=== PATIENT | female | born 1960 ===

== ENCOUNTER 2022-09-18 12:47 | Inpatient (IN) | payer OTHER, SELFPAY ==
--- OUTSIDE RECORDS SUMMARY | 2022-09-18 13:02 | XMS REPORT | Continuity of Care Document ---
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 2022- No [id number] 5mg Take 1 Univ ers mg tablet 4-04 05-05 tablet by ity of 00:00: 04:59 mouth in [place] 00 :00 the Medical morning Branch and 1 tablet in the evening. Do all this for 30 days. Indication s: atrial fibrillati on famotidine 2022-0 2022- No [id number] 20mg Take 1 [facility] 20 mg 4- 05-05 tablet by ity of tablet 00:00: 04:59 mouth in [place] 00 :00 the [facility] for 30 days. furosemide 2022-0 2022- No [id number] 80mg Take 1 [facility] 80 mg 4-04 05-05 tablet by ity of tablet 00:00: 04:59 mouth [place] 00 :00 every Medical morning Branch and evening for 30 days. KCL 20 mEq 2022-0 2022- No [id number] 20meq Take 1 [facility] tablet 4- 05-05 tablet by ity of 00:00: 04:59 mouth in [place] 00 :00 the [facility] for 30 days. apixaban 5 2022-2022- No [id number] 5mg Take 1 Univ ers mg tablet - 05-05 tablet by ity of 00:00: 04:59 mouth in [place] 00 :00 the [facility] and 1 tablet in the evening. Do all this for 30 days. Indication s: atrial fibrillati on famotidine 2022-2022- No [id number] 20mg Take 1 [facility] 20 mg 4- 05-05 tablet by ity of tablet 00:00: 04:59 mouth in [place] 00 :00 the [facility] for 30 days. furosemide 2022-0 2022- No [id number] 80mg Take 1 [facility] 80 mg 4- 05-05 tablet by ity of tablet 00:00: 04:59 mouth [place] 00 :00 every Medical morning Branch and evening for 30 days. KCL 20 mEq 2022-2022- No [id number] 20meq Take 1 [facility] tablet - 05-05 tablet by ity of 00:00: 04:59 mouth in [place] 00 :00 the [facility] for 30 days. spironolact 0 Yes 25mg 25 mg, Univ ers one 4-03 Oral, ity of (ALDACTONE) 14:00: DAILY, [place] tablet 25 00 First dose Medi veronica mg on Tue Branch 05/31/22 at 0900, Until Discontinu ed, Routine KCL 2022-2022- No 40meq 40 mEq, Univers (KLOR-CON 05-31 04-03 Oral, ity of M20) tablet 11:45: 14:08 ONCE, 1 [place] 40 mEq 00 :00 dose, On Medical 05/31/22 Branch at 0645, Routine metoprolol 2022-0 Yes 25mg 25 mg, Unive rs tartrate -03 Oral, BID, ity o f (LOPRESSOR) 01:00: First dose [place] tablet 25 00 (after Medical mg last Branch modificati on) on 05/30/22 at 2000, Until Discontinu ed, Routine amiodarone 2022-0 Yes 200mg QD Take 200 Miranda [facility] (PACERONE) 4-02 mg by Health 100 mg 23:11: mouth tablet 33 daily. metolazone 2022-0 Yes 5mg QD Take 5 mg [facility] (ZAROXOLYN) 4-02 by mouth Heal th 5 mg tablet 23:11: daily Take 33 one by mouth daily 30 minutes before lasix dose . furosemide 2022-0 Yes 40mg QD Take 40 mg H arris (LASIX) 40 -02 by mouth Healt h mg tablet 23:11: daily. 33 metoprolol 2022-0 Yes 50mg Q.5D Take 50 mg H [facility] (LOPRESSOR) -02 by mouth 2 He alth 50 mg 23:11: times tablet 33 daily Metoprolol tart 50 mg tab leg . nitroGLYCER 2022-[address] 0.4 H arris IN 4-02 mg under Health (NITROSTAT) 23:11: tongue 0.4 mg 33 every 5 sublingual minutes as tablet needed for Chest pain (total of 3 doses in 15 minutes) Dissolve 1 tablet under the tongue every 5 minutes as needed, up to 3 times. If chest pain persists, call 911 . levETIRAcet 3-0 Yes 500mg QD Take 500 H arris am (KEPPRA) 4-02 mg by Health 500 mg 23:11: mouth tablet 33 daily. potassium 2023-0 Yes Q.5D Take by [place] chloride 20 4-02 mouth 2 Healt h mEq TbER 23:11: times 33 daily. metoprolol 3-0 2023- No 50mg 50 mg, Univ ers tartrate 05-30 04-02 Oral, ity of (LOPRESSOR) 14:00: 14:49 DAILY, Rishabh as tablet 50 00 :46 First dose Medi veronica mg (after Branch last modificati on) on 05/30/22 at 0900, Until Discontinu ed, Routine metoprolol 3-0 2023- No 25mg 25 mg, Univ ers tartrate 05-30 04-02 Oral, QPM ity o f (LOPRESSOR) 01:00: 14:49 AT 2000, [place] tablet 25 00 :46 First dose Medi veronica mg (after Branch last modificati on) on 05/29/22 at 2000, Until Discontinu ed, Routine ondansetron 2022-0 Yes 4mg 4 mg, Slow Univers (ZOFRAN 05-29 IV Push, ity of (PF)) 07:58: Q6HPRN, [place] injection 4 55 Nausea and Me dical mg Vomiting Branch (N/V), Starting on 05/29/22 at 0258
Do ses of ondansetro n 16 mg and above need to be administer ed via IV piggyback. For Dose >=24mg ECG monitoring is advisable.
pravastatin 2022-0 Yes 20mg 20 mg, Univ ers (PRAVACHOL) 05-29 Oral, QHS, it y of tablet 20 02:00: First dose [place] mg 00 on Tue Medical 05/28/22 at Branch 2100, Until Discontinu ed, Routine lisinopriL 2022-0 Yes 10mg 10 mg, Unive rs (PRINIVIL,Z 05-28 Oral, ity of ESTRIL) 14:00: DAILY, [place] tablet 10 00 First dose Medi veronica mg on Tue Branch 05/28/22 at 0900, Until Discontinu ed, Routine levETIRAcet 2022-0 Yes 500mg 500 mg, Un [place] am (KEPPRA) 05-28 Oral, ity of tablet 500 14:00: DAILY, [place] mg 00 First dose Medical on Tue Branch 05/28/22 at 0900, Until Discontinu ed, Routine diltiazem 2022-0 Yes 240mg 240 mg, Univ ers XR 3 Oral, QAM, ity of (DILT-XR) 14:00: First dose [place] capsule 240 00 on Fri Medica l mg 05/28/22 at Branch 0900, Until Discontinu ed calcium 2022-0 Yes 500mg 500 mg, Univer s carbonate 05-28 Oral, ity of (OSCAL-500) 14:00: DAILY, [place] tablet 500 00 First dose Med ical mg on Tue Branch 05/28/22 at 0900, Until Discontinu ed, Routine furosemide 2022-0 Yes 40mg 40 mg, IV Un edwin (LASIX) 05-28 Push, ity of injection 13:00: Q12H, [place] 40 mg 00 First dose Medical (after Branch last reorder) on Tue05/28/22 at 0800, Until Discontinu ed, SHAUN famotidine 2022-0 Yes 20mg 20 mg, Unive rs (PEPCID AC) 05-28 Oral, BID, it y of tablet 20 13:00: First dose [place] mg 00 on Tue Medical 05/28/22 at Branch 0800, Until Discontinu ed, Routine hydrocortis 0 Yes 25mg 25 mg, Univ ers one 05-28 Rectal, ity of (ANUSOL-HC) 13:00: BID, First [place] suppository 00 dose on Medic al 25 mg Tue [place] 05/28/22 at 0800, Until Discontinu ed, Routine dicyclomine 2022-0 Yes 20mg 20 mg, Univ ers (BENTYL) 05-28 Oral, QID, ity o f tablet 20 13:00: First dose [place] mg 00 on Tue Medical 05/28/22 at Branch 0800, Until Discontinu ed, Routine budesonide- 2022-0 Yes 2{puff} 2 Puff, Univers formoteroL 05-28 Inhalation ity of (SYMBICORT) 13:00: , BID, [place] 160-4.5 00 First dose Medica l mcg/actuati on Tue on inhaler 05/28/22 at 2 Puff 0800, Until Discontinu ed, Routine apixaban 2022-0 2022- No 10mg 10 mg, Univer s (ELIQUIS) 05-28 04-03 Oral, BID, ity of tablet 10 13:00: 13:33 First dose [place] mg 00 :19 on Tue Medical 05/28/22 at Branch 0800, Until Discontinu ed, Routine
Indicatio ns: Non-Valvul ar Atrial Fibrillati on metoprolol 2022- No 50mg 50 mg, Univ ers tartrate 05-28 04 Oral, BID, ity of (LOPRESSOR) 13:00: 21:44 First dose [place] tablet 50 00 :15 on Fri Medical mg 05/28/22 at Branch 0800, Until Discontinu ed, Routine nitroglycer Yes .4mg 0.4 mg, Uni vers in 05-28 Sublingual ity of (NITROSTAT) 02:35: , Q5MIN [place]ishab[place] as sublingual 05 PRN, Medical tablet 0.4 Starting Branc h mg on [facility] 05/27/22 at 2135, Until Discontinu ed, Routine, Chest pain HYDROcodone Yes 1{tbl} 1 tablet, Univers -acetaminop 05-28 Oral, ity of hen (NORCO) 02:34: Q6HPRN, [place]ab[place] as 10-325 mg 21 Starting Medica l tablet 1 on [facility] tablet 05/27/22 at 2134, Until Discontinu ed, Routine, Pain (scale 7-10) albuterol Yes 2{puff} 2 Puff, Un edwin (VENTOLIN) 05-28 Inhalation ity of inhaler 2 02:32: , Q6HPRN, [place] as Puff 16 Starting Medical on [facility] Branch 05/27/22 at 2132, Until Discontinu ed, Routine, Wheezing, Shortness of Breath, Bronchospa sm, Chest tightness magnesium 2022- No 2g 2 g, IV Univ ers sulfate in 05-27 0330 Piggyback, it y of water 2 22:30: 23:14 Administer Rishabh as gram/50 mL 00 :00 over 60 Medica l (4 %) Minutes, Branch infusion 2 ONCE, 1 g dose, On [facility] 05/27/22 at 1730, Routine acetaminoph Yes 650mg 650 mg, Un edwin en 05-27 Oral, ity of (TYLENOL) 22:25: Q6HPRN, [place] tablet 650 16 Starting Medic al mg on [facility] Branch 05/27/22 at 1725, Until Discontinu ed, Routine, Pain (scale 1-3) potassium Yes 20meq Take 1 Unive rs chloride 20 3-30 tablet by ity of mEq tablet 21:36: mouth in [facility] as 09 the Medical morning. Branch HYDROcodone Yes 1{tbl} Take 1 Un edwin -acetaminop 3-30 tablet by ity of hen 10-325 21:36: mouth [place] mg tablet 09 every 6 Medical (six) Branch hours as needed. apixaban 5 Yes 10mg Take 2 Unive rs mg tablet 3-30 tablets by ity of 21:36: mouth in [place] 09 the Medical morning Branch and 2 tablets in the evening. iopamidol 2022- No [id number] 80mL 80 mL, Univers (ISOVUE 30 30 Intravenou ity o f 370-500 mL) 21:15: 20:15 s, ONCE, 1 [place] injection 00 :00 dose, On Medica l 80 mL [place] Branch 05/27/22 at 1615, Routine furosemide 2022- No 40mg 40 mg, IV U nivers (LASIX) 05-27 Push, ity of injection 20:30: 20:41 ONCE, 1 [place] 40 mg 00 :00 dose, On Medical [facility] Branch 05/27/22 at 1530, SHAUN phenylephri Yes [id number] 1{suppo Insert 1 Univers ne 0.25 % 3-21 sitory} Suppositor i ty of suppository 00:00: y [place] 00 rectum in [facility] the [place] morning and 1 Suppositor y in the evening. phenylephri Yes [id number] 1{suppo Insert 1 Univers ne 0.25 % 3-21 sitory} Suppositor i ty of suppository 00:00: y [place] 00 rectum in [facility] morning and 1 Suppositor y in the evening. phenylephri Yes [id number] 1{suppo Insert 1 Univers ne 0.25 % 3-21 sitory} Suppositor i ty of suppository 00:00: y [place] 00 rectum in [facility] the [place] morning and 1 Suppositor y in the evening. phenylephri Yes [id number] 1{suppo Insert 1 Univers ne 0.25 % 3-21 sitory} Suppositor i ty of suppository 00:00: y into [place] 00 rectum in [facility] morning and 1 Suppositor y in the evening. phenylephri Yes [id number] 1{suppo Insert 1 Univers ne 0.25 % 3-21 sitory} Suppositor i ty of suppository 00:00: y [place] 00 rectum in [facility] morning and 1 Suppositor y in the evening. phenylephri Yes [id number] 1{suppo Insert 1 Univers ne 0.25 % 3-21 sitory} Suppositor i ty of suppository 00:00: y into [place] 00 rectum in [facility] morning and 1 Suppositor y in the evening. phenylephri Yes [id number] 1{suppo Insert 1 Univers ne 0.25 % 3-21 sitory} Suppositor i ty of suppository 00:00: y into [place] 00 rectum in [facility] morning and 1 Suppositor y in the evening. phenylephri Yes [id number] 1{suppo Insert 1 Univers ne 0.25 % 3-21 sitory} Suppositor i ty of suppository 00:00: y into [place] 00 rectum in [facility] morning and 1 Suppositor y in the evening. phenylephri Yes [id number] 1{suppo Insert 1 Univers ne 0.25 % 3-21 sitory} Suppositor i ty of suppository 00:00: y into [place] 00 rectum in [facility] morning and 1 Suppositor y in the evening. phenylephri Yes [id number] 1{suppo Insert 1 Univers ne 0.25 % 3-21 sitory} Suppositor i ty of suppository 00:00: y into [place] 00 rectum in [facility] morning and 1 Suppositor y in the evening. phenylephri Yes [id number] 1{suppo Insert 1 Univers ne 0.25 % 3-21 sitory} Suppositor i ty of suppository 00:00: y into [place] 00 rectum in [facility] morning and 1 Suppositor y in the evening. hydrocortis Yes [id number] 25mg Insert 1 [facility] one 25 mg 3-17 Suppositor ity of suppository 00:00: y into [place] 00 rectum in Medical the [place] morning and 1 Suppositor y in the evening. ondansetron 2023-0 Yes [id number] 4mg Take 1 [facility] 4 mg 3-17 tablet by ity of disintegrat 00:00: mouth [place] ing tablet 00 every 8 Medica l (eight) Branch hours as needed for Nausea and Vomiting (N/V). dicyclomine 2023-0 Yes [id number] 20mg Take 1 [facility] 20 mg 3-17 tablet by ity of tablet 00:00: mouth 4 [place] 00 (four) Medical times [place] daily. hydrocortis 2023-0 Yes [id number] 25mg Insert 1 [facility] one 25 mg 3-17 Suppositor ity of suppository 00:00: y into [place] 00 rectum in [facility] the [place] morning and 1 Suppositor y in the evening. ondansetron 2023-0 Yes [id number] 4mg Take 1 [facility] 4 mg 3-17 tablet by ity of disintegrat 00:00: mouth [place] ing tablet 00 every 8 Medica l (eight) Branch hours as needed for Nausea and Vomiting (N/V). dicyclomine 2023-0 Yes [id number] 20mg Take 1 [facility] 20 mg 3-17 tablet by ity of tablet 00:00: mouth 4 [place] (four) [facility] times [place] daily. hydrocortis 2023-0 Yes [id number] 25mg Insert 1 [facility] one 25 mg 3-17 Suppositor ity of suppository 00:00: y into [place] 00 rectum in [facility] the [place] morning and 1 Suppositor y in the evening. ondansetron 2023-0 Yes [id number] 4mg Take 1 [facility] 4 mg 3-17 tablet by ity of disintegrat 00:00: mouth [place] ing tablet 00 every 8 Medica l (eight) Branch hours as needed for Nausea and Vomiting (N/V). dicyclomine 2023-0 Yes [id number] 20mg Take 1 [facility] 20 mg 3-17 tablet by ity of tablet 00:00: mouth 4 [place] 00 (four) Medical times [place] daily. hydrocortis 2023-0 Yes [id number] 25mg Insert 1 [facility] one 25 mg 3-17 Suppositor ity of suppository 00:00: y into [place] 00 rectum in Medical the [place] morning and 1 Suppositor y in the evening. ondansetron 2023-0 Yes [id number] 4mg Take 1 [facility] 4 mg 3-17 tablet by ity of disintegrat 00:00: mouth [place] ing tablet 00 every 8 Medica l (eight) Branch hours as needed for Nausea and Vomiting (N/V). dicyclomine 2023-0 Yes [id number] 20mg Take 1 [facility] 20 mg 3-17 tablet by ity of tablet 00:00: mouth 4 [place] 00 (four) Medical times [place] daily. hydrocortis 2023-0 Yes [id number] 25mg Insert 1 [facility] one 25 mg 3-17 Suppositor ity of suppository 00:00: y into [place] 00 rectum in [facility] morning and 1 Suppositor y in the evening. ondansetron 2023-0 Yes [id number] 4mg Take 1 [facility] 4 mg 3-17 tablet by ity of disintegrat 00:00: mouth [place] ing tablet 00 every 8 Medica l (eight) Branch hours as needed for Nausea and Vomiting (N/V). dicyclomine 2023-0 Yes [id number] 20mg Take 1 [facility] 20 mg 3-17 tablet by ity of tablet 00:00: mouth 4 (four) [facility] times [place] daily. hydrocortis 2023-0 Yes [id number] 25mg Insert 1 [facility] one 25 mg 3-17 Suppositor ity of suppository 00:00: y into [place] 00 rectum in [facility] morning and 1 Suppositor y in the evening. ondansetron 2023-0 Yes [id number] 4mg Take 1 [facility] 4 mg 3-17 tablet by ity of disintegrat 00:00: mouth [place] ing tablet 00 every 8 Medica l (eight) Branch hours as needed for Nausea and Vomiting (N/V). dicyclomine 2023-0 Yes [id number] 20mg Take 1 [facility] 20 mg 3-17 tablet by ity of tablet 00:00: mouth 4 [place] 00 (four) Medical times [place] daily. hydrocortis 2023-0 Yes [id number] 25mg Insert 1 [facility] one 25 mg 3-17 Suppositor ity of suppository 00:00: y into [place] 00 rectum in [facility] morning and 1 Suppositor y in the evening. ondansetron 3-0 Yes [id number] 4mg Take 1 [facility] 4 mg 3-17 tablet by ity of disintegrat 00:00: mouth [place] ing tablet 00 every 8 Medica l (eight) Branch hours as needed for Nausea and Vomiting (N/V). hydrocortis 2022-0 Yes [id number] 25mg Insert 1 [facility] one 25 mg 3-17 Suppositor ity of suppository 00:00: y into [place] 00 rectum in [facility] morning and 1 Suppositor y in the evening. ondansetron 3-0 Yes [id number] 4mg Take 1 [facility] 4 mg 3-17 tablet by ity of disintegrat 00:00: mouth [place] ing tablet 00 every 8 Medica l (eight) Branch hours as needed for Nausea and Vomiting (N/V). hydrocortis 2022-0 Yes [id number] 25mg Insert 1 [facility] one 25 mg 3-17 Suppositor ity of suppository 00:00: y into [place] 00 rectum in [facility] morning and 1 Suppositor y in the evening. ondansetron 2022-0 Yes [id number] 4mg Take 1 [facility] 4 mg 3-17 tablet by ity of disintegrat 00:00: mouth [place] ing tablet 00 every 8 Medica l (eight) Branch hours as needed for Nausea and Vomiting (N/V). hydrocortis 2022-0 Yes [id number] 25mg Insert 1 [facility] one 25 mg 3-17 Suppositor ity of suppository 00:00: y into [place] rectum in [facility] morning and 1 Suppositor y in the evening. ondansetron 3-0 Yes [id number] 4mg Take 1 [facility] 4 mg 3-17 tablet by ity of disintegrat 00:00: mouth [place] ing tablet 00 every 8 Medica l (eight) Branch hours as needed for Nausea and Vomiting (N/V). hydrocortis 3-0 Yes [id number] 25mg Insert 1 [facility] one 25 mg 3-17 Suppositor ity of suppository 00:00: y into [place] rectum in [facility] morning and 1 Suppositor y in the evening. ondansetron 3-0 Yes [id number] 4mg Take 1 [facility] 4 mg 3-17 tablet by ity of disintegrat 00:00: mouth [place] ing tablet 00 every 8 Medica l (eight) Branch hours as needed for Nausea and Vomiting (N/V). hydrocortis 2022-0 Yes [id number] 25mg Insert 1 [facility] one 25 mg 3-17 Suppositor ity of suppository 00:00: y into [place] 00 rectum in Medical the Branch morning and 1 Suppositor y in the evening. ondansetron 2022-0 Yes [id number] 4mg Take 1 [facility] 4 mg 3-17 tablet by ity of disintegrat 00:00: mouth [place] ing tablet 00 every 8 Medica l (eight) Branch hours as needed for Nausea and Vomiting (N/V). hydrocortis 2022-0 Yes [id number] 25mg Insert 1 [facility] one 25 mg 3-17 Suppositor ity of suppository 00:00: y into [place] 00 rectum in [facility] the [place] morning and 1 Suppositor y in the evening. ondansetron 2022-0 Yes [id number] 4mg Take 1 [facility] 4 mg 3-17 tablet by ity of disintegrat 00:00: mouth [place] ing tablet 00 every 8 Medica l (eight) Branch hours as needed for Nausea and Vomiting (N/V). dicyclomine 2022-2022- No [id number] 20mg Take 1 [facility] 20 mg 3-17 04-12 tablet by ity of tablet 00:00: 00:00 mouth 4 [place] 00 :00 (four) Medical times Branch daily. dicyclomine 2022-2022- No [id number] 20mg Take 1 [facility] 20 mg 3-17 04-12 tablet by ity of tablet 00:00: 00:00 mouth 4 [place] 00 :00 (four) Medical times Branch daily. magnesium 2022- No 2g 2 g, IV Univ ers sulfate in 03-11 Piggyback, it y of water 2 21:15: 21:30 Administer Rishabh as gram/50 mL 00 :00 over 60 Medica l (4 %) Minutes, Branch infusion 2 ONCE, 1 g dose, On [place] 03/11/22 at 1515, SHAUN levETIRAcet 2022-2022- No 1000mg 1,000 mg, Univers am (KEPPRA) 03-11 IV ity of in NACL 19:45: 19:51 Piggyback, Rishabh as (ISO-OS) 00 :00 ONCE, 1 Medical 1,000 dose, On Branch mg/100 mL [place] RTU 03/11/22 at 1345, Administer over 15 Minutes, 100 mL predniSONE 2021-02- No [id number] 50mg Take 1 Univers 50 mg 2-24 12-29 tablet by ity of tablet 00:00: 05:59 mouth in [place] 00 :00 the Medical morning Branch for 4 days. predniSONE 2021-02- No [id number] 50mg Take 1 [facility] 50 mg 2-24 12-29 tablet by ity of tablet 00:00: 05:59 mouth in [place] 00 :00 the Medical morning Branch for 4 days. potassium 2021-02 Yes 1{tbl} Take 1 Univ ers chloride 20 2-23 tablet by ity of mEq tablet 16:04: mouth 05 daily. Medical Branch HYDROcodone 2021-02 Yes 1{tbl} Take 1 Un ed[place] -acetaminop 2-23 tablet by ity of hen 10-325 16:04: mouth [place] mg tablet 05 every 6 Medical (six) Branch hours as needed. apixaban 5 2021-02 Yes 10mg Take 10 mg U nivers mg tablet 2-23 by mouth ity of 16:04: in the morning Medical and 10 mg Branch in the evening. potassium 2021-02 Yes 1{tbl} Take 1 Univ ers chloride 20 2-23 tablet by ity of mEq tablet 16:04: mouth [place] 05 daily. Medical Branch HYDROcodone 2021-02 Yes 1{tbl} Take 1 Un edwin -acetaminop 2-23 tablet by ity of hen 10-325 16:04: mouth [place] mg tablet 05 every 6 Medical (six) Branch hours as needed. apixaban 5 2021-02 Yes 10mg Take 10 mg U nivers mg tablet 2-23 by mouth ity of 16:04: in the morning Medical and 10 mg Branch in the evening. potassium 2021-02 Yes 1{tbl} Take 1 Univ ers chloride 20 2-23 tablet by ity of mEq tablet 16:04: mouth [place] 05 daily. Medical Branch HYDROcodone 2021-02 Yes 1{tbl} Take 1 Un [place] -acetaminop 2-23 tablet by ity of hen 10-325 16:04: mouth [place] mg tablet 05 every 6 Medical (six) Branch hours as needed. apixaban 5 2021-02 Yes 10mg Take 10 mg U nivers mg tablet 2-23 by mouth ity of 16:04: in the [place] 05 morning Medical and 10 mg Branch in the evening. potassium 2021-02 Yes 1{tbl} Take 1 Univ ers chloride 20 2-23 tablet by ity of mEq tablet 16:04: mouth [place] 05 daily. Medical Branch HYDROcodone 2021-02 Yes 1{tbl} Take 1 Un [place] -acetaminop 2-23 tablet by ity of hen 10-325 16:04: mouth [place] mg tablet 05 every 6 Medical (six) Branch hours as needed. apixaban 5 2021-02 Yes 10mg Take 10 mg U nivers mg tablet 2-23 by mouth ity of 16:04: in the 05 morning Medical and 10 mg Branch in the evening. potassium 2021-02 Yes 1{tbl} Take 1 Univ ers chloride 20 2-23 tablet by ity of mEq tablet 16:04: mouth [place] 05 daily. Medical Branch HYDROcodone 2021-02 Yes 1{tbl} Take 1 Un ed[place] -acetaminop 2-23 tablet by ity of hen 10-325 16:04: mouth [place] mg tablet 05 every 6 Medical (six) Branch hours as needed. apixaban 5 2021-02 Yes 10mg Take 10 mg U nivers mg tablet 2-23 by mouth ity of 16:04: in the 05 morning Medical and 10 mg Branch in the evening. potassium 2021-02 Yes 1{tbl} Take 1 Univ ers chloride 20 2-23 tablet by ity of mEq tablet 16:04: mouth [place] 05 daily. Medical Branch HYDROcodone 2021-02 Yes 1{tbl} Take 1 Un [place] -acetaminop 2-23 tablet by ity of hen 10-325 16:04: mouth [place] mg tablet 05 every 6 Medical (six) Branch hours as needed. apixaban 5 2021-02 Yes 10mg Take 10 mg U nivers mg tablet 2-23 by mouth ity of 16:04: in the [place] 05 morning Medical and 10 mg Branch in the evening. potassium 2021-02 Yes 1{tbl} Take 1 Univ ers chloride 20 2-23 tablet by ity of mEq tablet 16:04: mouth [place] 05 daily. Medical Branch HYDROcodone 2021-02 Yes 1{tbl} Take 1 Un [place] -acetaminop 2-23 tablet by ity of hen 10-325 16:04: mouth [place] mg tablet 05 every 6 Medical (six) Branch hours as needed. apixaban 5 2021-02 Yes 10mg Take 10 mg U nivers mg tablet 2-23 by mouth ity of 16:04: in the 05 morning Medical and 10 mg Branch in the evening. potassium 2021-02 Yes 1{tbl} Take 1 Univ ers chloride 20 2-23 tablet by ity of mEq tablet 16:04: mouth [place] 05 daily. Medical Branch HYDROcodone 2021-02 Yes 1{tbl} Take 1 Un [place] -acetaminop 2-23 tablet by ity of hen 10-325 16:04: mouth [place] mg tablet 05 every 6 Medical (six) Branch hours as needed. apixaban 2021-02 Yes 10mg Take 10 mg U nivers mg tablet 2-23 by mouth ity of 16:04: in the morning Medical and 10 mg Branch in the evening. potassium 2021-02 Yes 1{tbl} Take 1 Univ ers chloride 20 2-23 tablet by ity of mEq tablet 16:04: mouth [place] 05 daily. Medical Branch HYDROcodone 2021-02 Yes 1{tbl} Take 1 Un [place] -acetaminop 2-23 tablet by ity of hen 10-325 16:04: mouth [place] mg tablet 05 every 6 Medical (six) Branch hours as needed. apixaban 2021-02 Yes 10mg Take 10 mg U nivers mg tablet 2-23 by mouth ity of 16:04: in the 05 morning Medical and 10 mg Branch in the evening. predniSONE 2021-02 Yes 50mg 50 mg, Unive rs (DELTASONE) 2-23 Oral, ity of tablet 50 15:00: DAILY, [place] mg 00 First dose Medical on Tue Branch 02/19/22 at 0900, Until Discontinu ed, Routine doxycycline 2021-02- No [id number] 100mg Take 1 [facility] hyclate 100 2-23 - capsule by i ty of mg capsule 00:00: 05:59 mouth [place] 00 :00 every 12 Medical (twelve) Branch hours for 7 days. doxycycline 2021-02 No [id number] 100mg Take 1 [facility] hyclate 100 04-22 capsule by i ty of mg capsule 00:00: 05:59 mouth [place] 00 :00 every 12 Medical (twelve) Branch hours for 7 days. ceFEPIme 2021-02 No 1000mg 1,000 mg, U nivers (MAXIPIME) 04-21 IV ity of 1,000 mg in 01:11: 01:14 Piggyback, [place] NaCl 0.9% 02 :00 Q12H ABX, Medic al (NS) 50 mL 10 doses, Bran ch MINI-BAG First dose on Tue02/17/22 at 1915, Last dose on Tue02/22/22 at 0715, Administer over 4 Hours, 50 mL
Reas on for Anti-Infec tive: Empiric Therapy for Suspected Infection< br>Empiric Therapy Site: Respirator y
Durat ion of therapy: 72 hours ipratropium 2021-02 Yes 3mL 3 mL, Unive rs -albuteroL 04-20 Inhalation ity of (DUONEB) 22:00: , QID, [place] 0.5 mg-3 00 First dose Medic al mg(2.5 mg (after Branch base)/3 mL last nebulizer modificati solution 3 on) on [facility] 02/17/22 at 1600, Until Discontinu ed, Routine iopamidol 2021-02 No [id number] 70mL 70 mL, Univers (ISOVUE 04-20 Intravenou ity o f 370-500 mL) 18:30: 17:30 s, ONCE, 1 [place] injection 00 :00 dose, On Medica l 70 mL Wed Branch 02/17/22 at 1230, Routine ipratropium 2021-02 No 6mL 6 mL, Univ ers -albuteroL 04-20 Inhalation it y of (DUONEB) 18:00: 17:58 , QID, [place] 0.5 mg-3 00 :25 First dose Medic al mg(2.5 mg (after Branch base)/3 mL last nebulizer reorder) solution 6 on [facility] 02/17/22 at 1200, Until Discontinu ed, Routine metoprolol 2021-02 Yes 50mg 50 mg, Unive rs tartrate 2- Oral, ity of (LOPRESSOR) 15:00: DAILY, [place] tablet 50 00 First dose Medi ver[place] mg on Tue Branch 02/17/22 at 0900, Until Discontinu ed, Routine lisinopriL 2021-02 Yes 10mg 10 mg, Unive rs (PRINIVIL,Z 2- Oral, ity of ESTRIL) 15:00: DAILY, [place] tablet 10 00 First dose Medi veronica mg on Tue Branch 02/17/22 at 0900, Until Discontinu ed, Routine levETIRAcet 2021-02 Yes 500mg 500 mg, Un [place] am (KEPPRA) 04-20 Oral, ity of tablet 500 15:00: DAILY, [place] mg 00 First dose Medical on Tue Branch 02/17/22 at 0900, Until Discontinu ed, Routine diltiazem 2021-02 Yes 240mg 240 mg, Univ ers XR 2 Oral, ity of (DILT-XR) 15:00: DAILY, [place] capsule 240 00 First dose Me dical mg on Tue Branch 02/17/22 at 0900, Until Discontinu ed calcium 2021-02 Yes 500mg 500 mg, Univer s carbonate 04-20 Oral, ity of (OSCAL-500) 15:00: DAILY, [place] tablet 500 00 First dose Med ical mg on Tue Branch 02/17/22 at 0900, Until Discontinu ed, Routine amiodarone 2021-02 No 200mg 200 mg, Un [place] (PACERONE) 04-20 Oral, ity of tablet 200 15:00: 01:05 DAILY, [place] mg 00 :14 First dose Medical on Tue Branch 02/17/22 at 0900, Until Discontinu ed, Routine furosemide 2021-02 Yes 40mg 40 mg, IV Un [place] (LASIX) 04-20 Push, BID, ity of injection 14:00: First dose [place] 40 mg 00 (after Medical last Branch modificati on) on Tue02/17/22 at 0800, Until Discontinu ed, SHAUN methylPREDN 2022-1 2022- No 40mg 40 mg, Uni vers ISolone sod 04-20 Slow IV ity of succ 12:00: 20:25 Push, Q6H, [place] (SOLU-MEDRO 00 :59 First dose Me dical L (PF)) on Tue injection 02/17/22 40 mg at 0600, Until Discontinu ed, Routine NaCl 0.9% 2021-02- No 250mL at 999 Univ ers (NS) IV 04-20 12- mL/hr, IV ity of infusion 07:00: 08:08 Infusion, [place] 250 mL 00 :32 ONCE, 1 Medical dose, On Branch Tue02/17/22 at 0100, Routine pravastatin 2021-02 Yes 20mg 20 mg, Univ ers (PRAVACHOL) 04-20 Oral, QHS, it y of tablet 20 05:00: First dose [place] mg 00 (after Medical last Branch modificati on) on Tue02/16/22 at 2300, Until Discontinu ed, Routine apixaban 2021-02- No 10mg 10 mg, Univer s (ELIQUIS) 04-20 Oral, BID, ity of tablet 10 05:00: 20:19 First dose [place] mg 00 :25 (after Medical last Branch modificati on) on Tue02/16/22 at 2300, Until Discontinu ed, Routine
Indicatio ns: Non-Valvul ar Atrial Fibrillati on ondansetron 2021-02 Yes 4mg 4 mg, Slow Univers (ZOFRAN 04-20 IV Push, ity of (PF)) 04:48: Q6HPRN, [place] injection 4 35 Starting Medi veronica mg on Tue02/16/22 at 2248, Until Discontinu ed, Routine, Nausea and Vomiting (N/V) traMADoL 2021-02- No 50mg 50 mg, Univer s (ULTRAM) 04-20 Oral, ity of tablet 50 04:48: 04:47 Q8HPRN, [place] mg 15 :15 Starting Medical on Tue Branch 02/16/22 at 2248, Until [place] 02/18/22 at 2247, Routine, Pain (scale 4-6) acetaminoph 2021-02 Yes 650mg 650 mg, Un edwin en 04-20 Oral, ity of (TYLENOL) 04:48: Q6HPRN, [place] tablet 650 13 Starting Medic al mg on e Branch 02/16/22 at 2248, Until Discontinu ed, Routine, Pain (scale 1-3) nitroglycer 2021-02 Yes .4mg 0.4 mg, Uni vers in 04-20 Sublingual ity of (NITROSTAT) 04:38: , Q5MIN [place] sublingual 09 PRN, Medical tablet 0.4 Starting Branc h mg on Tue02/16/22 at 2238, Until Discontinu ed, Routine, Chest pain HYDROcodone 2021-02 Yes 1{tbl} 1 tablet, Univers -acetaminop 04-20 Oral, ity of hen (NORCO) 04:37: Q6HPRN, [place] 10-325 mg 10 Starting Medica l tablet 1 on Branch tablet 02/16/22 at 2237, Until Discontinu ed, Routine, Pain (scale 7-10) dexamethaso 2021-02- No 10mg 10 mg, Uni vers ne 04-20 Oral, ity of (DECADRON 02:15: 01:24 ONCE, 1 [place] PHOSPHATE) 00 :00 dose, On Medic al injection Branch 10 mg 02/16/22 at 2014, Routine ipratropium 2021-02- No 6mL 6 mL, Univ ers -albuteroL 04-20 Inhalation it y of (DUONEB) 02:15: 01:38 , ONCE, 1 [place] 0.5 mg-3 00 :00 dose, On Medical mg(2.5 mg Branch base)/3 mL 02/16/22 nebulizer at 2014, solution 6 Routine mL furosemide 2021-02- No 40mg 40 mg, IV U nivers (LASIX) 04-20 Push, ity of injection 01:15: 01:25 ONCE, 1 [place] 40 mg 00 :00 dose, On Medical Tue Branch 02/16/22 at 1915, SHAUN metOLazone 2021-02- No 5mg Take 5 mg U nivers 5 mg tablet 04-19 by mouth ity of 22:49: 00:00 daily. [place] 12 :00 Medical Branch potassium 2021-02 Yes 1{tbl} Take 1 Univ ers chloride 20 1-30 tablet by ity of mEq tablet 11:16: mouth [place] 33 daily. Medical Branch HYDROcodone 2021-02 Yes 1{tbl} Take 1 Un [place] -acetaminop 1-30 tablet by ity of hen 10-325 11:16: mouth [place] mg tablet 33 every 6 Medical (six) Branch hours as needed. potassium 2021-02 Yes 1{tbl} Take 1 Univ ers chloride 20 1-30 tablet by ity of mEq tablet 11:16: mouth [place] 33 daily. Medical Branch HYDROcodone 2021-02 Yes 1{tbl} Take 1 Un [place] -acetaminop 1-30 tablet by ity of hen 10-325 11:16: mouth [place] mg tablet 33 every 6 Medical (six) Branch hours as needed. pravastatin 2021-02 Yes [id number] 20mg Take 1 [facility] 20 mg 1-30 tablet by ity of tablet 00:00: mouth at [place] 00 bedtime. Medical Branch levETIRAcet 2021-02 Yes [id number] 500mg Take 1 [facility] am 500 mg 1-30 tablet by ity o f tablet 00:00: mouth in [place] 00 the Medical morning. Branch loperamide 2021-02 Yes [id number] 2mg Take 1 U nivers 2 mg 1-30 capsule by ity of capsule 00:00: mouth [place] 00 every 4 Medical (four) Branch hours as needed for Diarrhea. pravastatin 2021-02 Yes [id number] 20mg Take 1 [facility] 20 mg 1-30 tablet by ity of tablet 00:00: mouth at [place] 00 bedtime. Medical Branch levETIRAcet 2021-02 Yes [id number] 500mg Take 1 [facility] am 500 mg 1-30 tablet by ity o f tablet 00:00: mouth in [place] 00 the Medical morning. Branch loperamide 2021-02 Yes [id number] 2mg Take 1 U nivers 2 mg 1-30 capsule by ity of capsule 00:00: mouth [place] 00 every 4 Medical (four) Branch hours as needed for Diarrhea. pravastatin 2021-02 Yes [id number] 20mg Take 1 [facility] 20 mg 1-30 tablet by ity of tablet 00:00: mouth at [place] 00 bedtime. Medical Branch levETIRAcet 2021-02 Yes [id number] 500mg Take 1 [facility] am 500 mg 1-30 tablet by ity o f tablet 00:00: mouth in [place] the Medical morning. Branch pravastatin 2021-02 Yes [id number] 20mg Take 1 [facility] 20 mg 1-30 tablet by ity of tablet 00:00: mouth at [place] [address] bedtime. Medical Branch levETIRAcet 2021-02 Yes [id number] 500mg Take 1 [facility] am 500 mg 1-30 tablet by ity o f tablet 00:00: mouth in [place] 00 the Medical morning. Branch pravastatin 2021-02 Yes [id number] 20mg Take 1 [facility] 20 mg 1-30 tablet by ity of tablet 00:00: mouth at [place] 00 bedtime. [facility] Branch levETIRAcet 2021-02 Yes [id number] 500mg Take 1 Univers am 500 mg 1-30 tablet by ity o f tablet 00:00: mouth in [place] the Medical morning. Branch pravastatin 2021-02 Yes [id number] 20mg Take 1 Univers 20 mg 1-30 tablet by ity of tablet 00:00: mouth at [place] [address] bedtime. [facility] Branch levETIRAcet 2021-02 Yes [id number] 500mg Take 1 Univers am 500 mg 1-30 tablet by ity o f tablet 00:00: mouth in [place] the Medical morning. Branch pravastatin 2021-02 Yes [id number] 20mg Take 1 [facility] 20 mg 1-30 tablet by ity of tablet 00:00: mouth at [place] [address] bedtime. [facility] Branch levETIRAcet 2021-02 Yes [id number] 500mg Take 1 Univers am 500 mg 1-30 tablet by ity o f tablet 00:00: mouth in [place] the Medical morning. Branch pravastatin 2021-02 Yes [id number] 20mg Take 1 Univers 20 mg 1-30 tablet by ity of tablet 00:00: mouth at [place] 00 bedtime. [facility] Branch levETIRAcet 2021-02 Yes [id number] 500mg Take 1 Univers am 500 mg 1-30 tablet by ity o f tablet 00:00: mouth in [place] 00 the Medical morning. Branch pravastatin 2021-02 Yes [id number] 20mg Take 1 [facility] 20 mg 1-30 tablet by ity of tablet 00:00: mouth at [place] 00 bedtime. Medical Branch levETIRAcet 2021-02 Yes [id number] 500mg Take 1 [facility] am 500 mg 1-30 tablet by ity o f tablet 00:00: mouth in [place] the Medical morning. Branch pravastatin 2021-02 Yes [id number] 20mg Take 1 [facility] 20 mg 1-30 tablet by ity of tablet 00:00: mouth at [place] [address] bedtime. Medical Branch levETIRAcet 2021-02 Yes [id number] 500mg Take 1 [facility] am 500 mg 1-30 tablet by ity o f tablet 00:00: mouth in [place] the Medical morning. Branch pravastatin 2021-02 Yes [id number] 20mg Take 1 [facility] 20 mg 1-30 tablet by ity of tablet 00:00: mouth at [place] 00 bedtime. Medical Branch levETIRAcet 2021-02 Yes [id number] 500mg Take 1 [facility] am 500 mg 1-30 tablet by ity o f tablet 00:00: mouth in [place] the Medical morning. Branch pravastatin 2021-02 Yes [id number] 20mg Take 1 [facility] 20 mg 1-30 tablet by ity of tablet 00:00: mouth at [place] [address] bedtime. Medical Branch levETIRAcet 2021-02 Yes [id number] 500mg Take 1 [facility] am 500 mg 1-30 tablet by ity o f tablet 00:00: mouth in [place] the Medical morning. Branch pravastatin 2021-02 Yes [id number] 20mg Take 1 [facility] 20 mg 1-30 tablet by ity of tablet 00:00: mouth at [place] [address] bedtime. Medical Branch levETIRAcet 2021-02 Yes [id number] 500mg Take 1 [facility] am 500 mg 1-30 tablet by ity o f tablet 00:00: mouth in [place] the Medical morning. Branch pravastatin 2021-02 Yes [id number] 20mg Take 1 [facility] 20 mg 1-30 tablet by ity of tablet 00:00: mouth at [place] 00 bedtime. Medical Branch levETIRAcet 2021-02 Yes [id number] 500mg Take 1 [facility] am 500 mg 1-30 tablet by ity o f tablet 00:00: mouth in [place] the Medical morning. Branch pravastatin 2021-02 Yes [id number] 20mg Take 1 [facility] 20 mg 1-30 tablet by ity of tablet 00:00: mouth at [place] 00 bedtime. Medical Branch levETIRAcet 2021-02 Yes [id number] 500mg Take 1 [facility] am 500 mg 1-30 tablet by ity o f tablet 00:00: mouth in [place] the Medical morning. Branch pravastatin 2021-02 Yes [id number] 20mg Take 1 [facility] 20 mg 1-30 tablet by ity of tablet 00:00: mouth at [place] 00 bedtime. Medical Branch levETIRAcet 2021-02 Yes [id number] 500mg Take 1 [facility] am 500 mg 1-30 tablet by ity o f tablet 00:00: mouth in [place] the Medical morning. Branch pravastatin 2021-02 Yes [id number] 20mg Take 1 [facility] 20 mg 1-30 tablet by ity of tablet 00:00: mouth at [place] 00 bedtime. Medical Branch levETIRAcet 2021-02 Yes [id number] 500mg Take 1 [facility] am 500 mg 1-30 tablet by ity o f tablet 00:00: mouth in [place] the Medical morning. Branch pravastatin 2021-02 Yes [id number] 20mg Take 1 [facility] 20 mg 1-30 tablet by ity of tablet 00:00: mouth at [place] [address] bedtime. Medical Branch levETIRAcet 2021-02 Yes [id number] 500mg Take 1 [facility] am 500 mg 1-30 tablet by ity o f tablet 00:00: mouth in [place] the Medical morning. Branch pravastatin 2021-02 Yes [id number] 20mg Take 1 [facility] 20 mg 1-30 tablet by ity of tablet 00:00: mouth at [place] [address] bedtime. Medical Branch levETIRAcet 2021-02 Yes [id number] 500mg Take 1 [facility] am 500 mg 1-30 tablet by ity o f tablet 00:00: mouth in [place] the Medical morning. Branch pravastatin 2021-02 Yes [id number] 20mg Take 1 [facility] 20 mg 1-30 tablet by ity of tablet 00:00: mouth at [place] 00 bedtime. Medical Branch levETIRAcet 2021-02 Yes [id number] 500mg Take 1 [facility] am 500 mg 1-30 tablet by ity o f tablet 00:00: mouth in [place] 00 the Medical morning. Branch pravastatin 2021-02 Yes [id number] 20mg Take 1 [facility] 20 mg 1-30 tablet by ity of tablet 00:00: mouth at [place] 00 bedtime. Medical Branch levETIRAcet 2021-02 Yes [id number] 500mg Take 1 [facility] am 500 mg 1-30 tablet by ity o f tablet 00:00: mouth in [place] 00 the Medical morning. Branch loperamide 2021-02- No [id number] 2mg Take 1 [facility] 2 mg 1-30 12-20 capsule by ity of capsule 00:00: 00:00 mouth [place] 00 :00 every 4 Medical (four) Branch hours as needed for Diarrhea. HYDROcodone 2021-02 Yes 1{tbl} Take 1 [facility] -acetaminop 1-08 tablet by [facility] ([place]) 13:42: mouth. 10-325 MG 20 tablet metOLazone 2021-02 Yes 5mg Take 5 mg [facility] (Zaroxolyn) 1-08 by mouth. [facility] 5 MG tablet 13:42: 20 lisinopril 2021-02 Yes [facility] 10 MG 0-29 Health tablet 00:00: 00 pravastatin 2021-02 Yes [facility] (Pravachol) 0-29 [facility] 20 MG 00:00: tablet 00 furosemide 2021-02 Yes [facility] (Lasix) 40 0-19 Health MG tablet 00:00: 00 metoprolol 2021-02 Yes [facility] tartrate 0-19 Health (Lopressor) 00:00: 50 MG 00 tablet metoprolol 2021-02- No 50mg Take 50 mg Univers tartrate 50 0-18 10-18 by mouth. it y of mg tablet 12:31: 00:00 [place] 54 :00 Medical Branch nitroglycer 2021-02- No .4mg Place 0.4 Univers in 0.4 mg 0-18 10-18 mg under ity o f sublingual 12:31: 00:00 the [place] tablet 54 :00 tongue. Medical Branch metoprolol 2021-02- No 50mg Take 50 mg Univers tartrate 50 0-18 10-18 by mouth. it y of mg tablet 12:31: 00:00 [place] 54 :00 Medical Branch nitroglycer 2021-02- No .4mg Place 0.4 Univers in 0.4 mg 0-18 10-18 mg under ity o f sublingual 12:31: 00:00 the [place] tablet 54 :00 tongue. Medical Branch furosemide 2021-02 Yes [id number] 40mg Take 1 [facility] 40 mg 0-18 tablet by ity of tablet 00:00: mouth [place] 00 every Medical morning Branch and evening. nitroglycer 2021-[id number] 1 Univers in 0.4 mg 0-18 tablet ity of sublingual 00:00: under the [place] tablet 00 tongue Medical every 5 Branch (five) minutes as needed for Chest pain. metoprolol 2021-02 Yes [id number] 50mg Take 1 U nivers tartrate 50 0-18 tablet by ity of mg tablet 00:00: mouth in [place] 00 the Medical morning Branch and 1 tablet in the evening. lisinopriL 2021-02 Yes [id number] 10mg Take 1 U nivers 10 mg 0-18 tablet by ity of tablet 00:00: mouth in [place] 00 the Medical morning. Branch diltiazem 2021-02 Yes [id number] 240mg Take 1 U nivers 240 mg 24 0-18 capsule by ity of hr capsule 00:00: mouth in [place] 00 the Medical morning. Branch furosemide 2021-02 Yes [id number] 40mg Take 1 [facility] 40 mg 0-18 tablet by ity of tablet 00:00: mouth [place] 00 every Medical morning Branch and evening. nitroglycer 2021-[id number] 1 Univers in 0.4 mg 0-18 tablet ity of sublingual 00:00: under the [place] tablet 00 tongue Medical every 5 Branch (five) minutes as needed for Chest pain. metoprolol 2021-02 Yes [id number] 50mg Take 1 U nivers tartrate 50 0-18 tablet by ity of mg tablet 00:00: mouth in [place] 00 the Medical morning Branch and 1 tablet in the evening. lisinopriL 2021-02 Yes [id number] 10mg Take 1 U nivers 10 mg 0-18 tablet by ity of tablet 00:00: mouth in [place] 00 the Medical morning. Branch diltiazem 2021-02 Yes [id number] 240mg Take 1 U nivers 240 mg 24 0-18 capsule by ity of hr capsule 00:00: mouth in [place] 00 the Medical morning. Branch furosemide 2021-02 Yes [id number] 40mg Take 1 [facility] 40 mg 0-18 tablet by ity of tablet 00:00: mouth [place] 00 every Medical morning Branch and evening. nitroglycer 2021-[id number] 1 Univers in 0.4 mg 0-18 tablet ity of sublingual 00:00: under the [place] tablet 00 tongue Medical every 5 Branch (five) minutes as needed for Chest pain. metoprolol 2021-02 Yes [id number] 50mg Take 1 U nivers tartrate 50 0-18 tablet by ity of mg tablet 00:00: mouth in [place] 00 the Medical morning Branch and 1 tablet in the evening. lisinopriL 2021-02 Yes [id number] 10mg Take 1 U nivers 10 mg 0-18 tablet by ity of tablet 00:00: mouth in [place] 00 the Medical morning. Branch diltiazem 2021-02 Yes [id number] 240mg Take 1 U nivers 240 mg 24 0-18 capsule by ity of hr capsule 00:00: mouth in [place] 00 the Medical morning. Branch furosemide 2021-02 Yes [id number] 40mg Take 1 [facility] 40 mg 0-18 tablet by ity of tablet 00:00: mouth [place] every Medical morning Branch and evening. nitroglycer 2021-[id number] 1 Univers in 0.4 mg 0-18 tablet ity of sublingual 00:00: under the [place] tablet [place] [facility] [place] every 5 Branch (five) minutes as needed for Chest pain. metoprolol 2021-02 Yes [id number] 50mg Take 1 U nivers tartrate 50 0-18 tablet by ity of mg tablet 00:00: mouth in [place] 00 the Medical morning Branch and 1 tablet in the evening. lisinopriL 2021-02 Yes [id number] 10mg Take 1 U nivers 10 mg 0-18 tablet by ity of tablet 00:00: mouth in [place] 00 the Medical morning. Branch diltiazem 2021-02 Yes [id number] 240mg Take 1 U nivers 240 mg 24 0-18 capsule by ity of hr capsule 00:00: mouth in [place] 00 the Medical morning. Branch furosemide 2021-02 Yes [id number] 40mg Take 1 [facility] 40 mg 0-18 tablet by ity of tablet 00:00: mouth [place] 00 every Medical morning Branch and evening. nitroglycer 2021-[id number] 1 Univers in 0.4 mg 0-18 tablet ity of sublingual 00:00: under the [place] tablet 00 tongue Medical every 5 Branch (five) minutes as needed for Chest pain. metoprolol 2021-02 Yes [id number] 50mg Take 1 U nivers tartrate 50 0-18 tablet by ity of mg tablet 00:00: mouth [place] 00 the Medical morning Branch and 1 tablet in the evening. lisinopriL 2021-02 Yes [id number] 10mg Take 1 U nivers 10 mg 0-18 tablet by ity of tablet 00:00: mouth in [place] 00 the Medical morning. Branch diltiazem 2021-02 Yes [id number] 240mg Take 1 U nivers 240 mg 24 0-18 capsule by ity of hr capsule 00:00: mouth in [place] 00 the Medical morning. Branch furosemide 2021-02 Yes [id number] 40mg Take 1 [facility] 40 mg 0-18 tablet by ity of tablet 00:00: mouth [place] 00 every Medical morning Branch and evening. nitroglycer 2021-[id number] 1 Univers in 0.4 mg 0-18 tablet ity of sublingual 00:00: under the [place] tablet 00 tongue Medical every 5 Branch (five) minutes as needed for Chest pain. metoprolol 2021-02 Yes [id number] 50mg Take 1 U nivers tartrate 50 0-18 tablet by ity of mg tablet 00:00: mouth in [place] 00 the Medical morning Branch and 1 tablet in the evening. lisinopriL 2021-02 Yes [id number] 10mg Take 1 U nivers 10 mg 0-18 tablet by ity of tablet 00:00: mouth in [place] 00 the Medical morning. Branch diltiazem 2021-02 Yes [id number] 240mg Take 1 U nivers 240 mg 24 0-18 capsule by ity of hr capsule 00:00: mouth in [place] 00 the Medical morning. Branch furosemide 2021-02 Yes [id number] 40mg Take 1 [facility] 40 mg 0-18 tablet by ity of tablet 00:00: mouth [place] 00 every Medical morning Branch and evening. nitroglycer 2021-[id number] 1 Univers in 0.4 mg 0-18 tablet ity of sublingual 00:00: under the [place] tablet 00 tongue Medical every 5 Branch (five) minutes as needed for Chest pain. metoprolol 2021-02 Yes [id number] 50mg Take 1 U nivers tartrate 50 0-18 tablet by ity of mg tablet 00:00: mouth in [place] 00 the Medical morning Branch and 1 tablet in the evening. lisinopriL 2021-02 Yes [id number] 10mg Take 1 U nivers 10 mg 0-18 tablet by ity of tablet 00:00: mouth in [place] 00 the Medical morning. Branch diltiazem 2021-02 Yes [id number] 240mg Take 1 U nivers 240 mg 24 0-18 capsule by ity of hr capsule 00:00: mouth in [place] 00 the Medical morning. Branch furosemide 2021-02 Yes [id number] 40mg Take 1 [facility] 40 mg 0-18 tablet by ity of tablet 00:00: mouth [place] 00 every Medical morning Branch and evening. nitroglycer 2021-[id number] 1 Univers in 0.4 mg 0-18 tablet ity of sublingual 00:00: under the [place] tablet 00 tongue Medical every 5 Branch (five) minutes as needed for Chest pain. metoprolol 2021-02 Yes [id number] 50mg Take 1 U nivers tartrate 50 0-18 tablet by ity of mg tablet 00:00: mouth [place] 00 the Medical morning Branch and 1 tablet in the evening. lisinopriL 2021-02 Yes [id number] 10mg Take 1 U nivers 10 mg 0-18 tablet by ity of tablet 00:00: mouth in [place] 00 the Medical morning. Branch diltiazem 2021-02 Yes [id number] 240mg Take 1 U nivers 240 mg 24 0-18 capsule by ity of hr capsule 00:00: mouth in [place] 00 the Medical morning. Branch furosemide 2021-02 Yes [id number] 40mg Take 1 [facility] 40 mg 0-18 tablet by ity of tablet 00:00: mouth [place] 00 every Medical morning Branch and evening. nitroglycer 2021-[id number] 1 Univers in 0.4 mg 0-18 tablet ity of sublingual 00:00: under the [place] tablet 00 tongue Medical every 5 Branch (five) minutes as needed for Chest pain. metoprolol 2021-02 Yes [id number] 50mg Take 1 U nivers tartrate 50 0-18 tablet by ity of mg tablet 00:00: mouth in [place] the Medical morning Branch and 1 tablet in the evening. lisinopriL 2021-02 Yes [id number] 10mg Take 1 U nivers 10 mg 0-18 tablet by ity of tablet 00:00: mouth in [place] the Medical morning. Branch diltiazem 2021-02 Yes [id number] 240mg Take 1 U nivers 240 mg 24 0-18 capsule by ity of hr capsule 00:00: mouth in [place] 00 the Medical morning. Branch nitroglycer 2021-[id number] 1 [facility] in 0.4 mg 0-18 tablet ity of sublingual 00:00: under the [place] [facility] [place] every 5 Branch (five) minutes as needed for Chest pain. metoprolol 2021-02 Yes [id number] 50mg Take 1 U nivers tartrate 50 0-18 tablet by ity of mg tablet 00:00: mouth in [facility] s the Medical morning Branch and 1 tablet in the evening. lisinopriL 2021-02 Yes [id number] 10mg Take 1 U nivers 10 mg 0-18 tablet by ity of tablet 00:00: mouth in [place] the Medical morning. Branch diltiazem 2021-02 Yes [id number] 240mg Take 1 U nivers 240 mg 24 0-18 capsule by ity of hr capsule 00:00: mouth in [facility] the Medical morning. Branch nitroglycer 2021-[id number] 1 Univers in 0.4 mg 0-18 tablet ity of sublingual 00:00: under the [place] tablet 00 tongue Medical every 5 Branch (five) minutes as needed for Chest pain. metoprolol 2021-02 Yes [id number] 50mg Take 1 U nivers tartrate 50 0-18 tablet by ity of mg tablet 00:00: mouth in [facility] s the Medical morning Branch and 1 tablet in the evening. lisinopriL 2021-02 Yes [id number] 10mg Take 1 U nivers 10 mg 0-18 tablet by ity of tablet 00:00: mouth in [place] 00 the Medical morning. Branch diltiazem 2021-02 Yes [id number] 240mg Take 1 U nivers 240 mg 24 0-18 capsule by ity of hr capsule 00:00: mouth in [place] 00 the Medical morning. Branch nitroglycer 2021-[id number] 1 [facility] in 0.4 mg 0-18 tablet ity of sublingual 00:00: under the [place] tablet 00 tongue Medical every 5 Branch (five) minutes as needed for Chest pain. metoprolol 2021-02 Yes [id number] 50mg Take 1 U nivers tartrate 50 0-18 tablet by ity of mg tablet 00:00: mouth in [place] 00 the Medical morning Branch and 1 tablet in the evening. lisinopriL 2021-02 Yes [id number] 10mg Take 1 U nivers 10 mg 0-18 tablet by ity of tablet 00:00: mouth in [place] 00 the Medical morning. Branch diltiazem 2021-02 Yes [id number] 240mg Take 1 U nivers 240 mg 24 0-18 capsule by ity of hr capsule 00:00: mouth in [place] 00 the Medical morning. Branch nitroglycer 2021-[id number] 1 [facility] in 0.4 mg 0-18 tablet ity of sublingual 00:00: under the [place] tablet 00 tongue Medical every 5 Branch (five) minutes as needed for Chest pain. metoprolol 2021-02 Yes [id number] 50mg Take 1 U nivers tartrate 50 0-18 tablet by ity of mg tablet 00:00: mouth in [place] 00 the Medical morning Branch and 1 tablet in the evening. lisinopriL 2021-02 Yes [id number] 10mg Take 1 U nivers 10 mg 0-18 tablet by ity of tablet 00:00: mouth in [place] 00 the Medical morning. Branch diltiazem 2021-02 Yes [id number] 240mg Take 1 U nivers 240 mg 24 0-18 capsule by ity of hr capsule 00:00: mouth in [place] 00 the Medical morning. Branch nitroglycer 2021-[id number] 1 [facility] in 0.4 mg 0-18 tablet ity of sublingual 00:00: under the [place] tablet 00 tongue Medical every 5 Branch (five) minutes as needed for Chest pain. metoprolol 2021-02 Yes [id number] 50mg Take 1 U nivers tartrate 50 0-18 tablet by ity of mg tablet 00:00: mouth [place] 00 the Medical morning Branch and 1 tablet in the evening. lisinopriL 2021-02 Yes [id number] 10mg Take 1 U nivers 10 mg 0-18 tablet by ity of tablet 00:00: mouth in [place] 00 the Medical morning. Branch diltiazem 2021-02 Yes [id number] 240mg Take 1 U nivers 240 mg 24 0-18 capsule by ity of hr capsule 00:00: mouth in [place] 00 the Medical morning. Branch nitroglycer 2021-[id number] 1 [facility] in 0.4 mg 0-18 tablet ity of sublingual 00:00: under the [place] tablet 00 tongue Medical every 5 Branch (five) minutes as needed for Chest pain. metoprolol 2021-02 Yes [id number] 50mg Take 1 U nivers tartrate 50 0-18 tablet by [facility] of mg tablet 00:00: mouth [place] 00 the Medical morning Branch and 1 tablet in the evening. lisinopriL 2021-02 Yes [id number] 10mg Take 1 U nivers 10 mg 0-18 tablet by ity of tablet 00:00: mouth in [place] 00 the Medical morning. Branch diltiazem 2021-02 Yes [id number] 240mg Take 1 U nivers 240 mg 24 0-18 capsule by ity of hr capsule 00:00: mouth in [place] 00 the Medical morning. Branch nitroglycer 2021-[id number] 1 [facility] in 0.4 mg 0-18 tablet ity of sublingual 00:00: under the [place] tablet 00 tongue Medical every 5 Branch (five) minutes as needed for Chest pain. metoprolol 2021-02 Yes [id number] 50mg Take 1 U nivers tartrate 50 0-18 tablet by [facility] of mg tablet 00:00: mouth [place] 00 the Medical morning Branch and 1 tablet in the evening. lisinopriL 2021-02 Yes [id number] 10mg Take 1 U nivers 10 mg 0-18 tablet by ity of tablet 00:00: mouth in [place] 00 the Medical morning. Branch diltiazem 2021-02 Yes [id number] 240mg Take 1 U nivers 240 mg 24 0-18 capsule by ity of hr capsule 00:00: mouth in [place] 00 the Medical morning. Branch nitroglycer 2021-[id number] 1 [facility] in 0.4 mg 0-18 tablet ity of sublingual 00:00: under the [place] tablet 00 tongue Medical every 5 Branch (five) minutes as needed for Chest pain. metoprolol 2021-02 Yes [id number] 50mg Take 1 U nivers tartrate 50 0-18 tablet by [facility] of mg tablet 00:00: mouth [place] 00 the Medical morning Branch and 1 tablet in the evening. lisinopriL 2021-02 Yes [id number] 10mg Take 1 U nivers 10 mg 0-18 tablet by ity of tablet 00:00: mouth in [place] 00 the Medical morning. Branch diltiazem 2021-02 Yes [id number] 240mg Take 1 U nivers 240 mg 24 0-18 capsule by ity of hr capsule 00:00: mouth in [place] 00 the Medical morning. Branch nitroglycer 2021-[id number] 1 [facility] in 0.4 mg 0-18 tablet ity of sublingual 00:00: under the [place] tablet 00 tongue Medical every 5 Branch (five) minutes as needed for Chest pain. metoprolol 2021-02 Yes [id number] 50mg Take 1 U nivers tartrate 50 0-18 tablet by [facility] of mg tablet 00:00: mouth [place] 00 the Medical morning Branch and 1 tablet in the evening. lisinopriL 2021-02 Yes [id number] 10mg Take 1 U nivers 10 mg 0-18 tablet by ity of tablet 00:00: mouth in [place] 00 the Medical morning. Branch diltiazem 2021-02 Yes [id number] 240mg Take 1 U nivers 240 mg 24 0-18 capsule by ity of hr capsule 00:00: mouth in [place] 00 the Medical morning. Branch amiodarone 2021-02 Yes 1{tbl} Take 1 [facility] (Pacerone) 0-18 tablet by Heal th 200 MG 00:00: mouth 1 tablet 00 (one) time each day in the morning. nitroglycer 2021-[address] 0[address]4 U T in 0-18 mg under Health (Nitrostat) 00:00: the tongue 0.4 MG SL 00 if needed. tablet furosemide 2021-02 Yes [id number] 40mg Take 1 [facility] 40 mg 0-18 tablet by ity of tablet 00:00: mouth [place] 00 every Medical morning Branch and evening. nitroglycer 2021-[id number] 1 [facility] in 0.4 mg 0-18 tablet ity of sublingual 00:00: under the [place] tablet 00 tongue Medical every 5 Branch (five) minutes as needed for Chest pain. metoprolol 2021-02 Yes [id number] 50mg Take 1 U nivers tartrate 50 0-18 tablet by ity of mg tablet 00:00: mouth in [facility] 00 the Medical morning Branch and 1 tablet in the evening. lisinopriL 2021-02 Yes [id number] 10mg Take 1 U nivers 10 mg 0-18 tablet by ity of tablet 00:00: mouth in [place] 00 the Medical morning. Branch diltiazem 2021-02 Yes [id number] 240mg Take 1 U nivers 240 mg 24 0-18 capsule by ity of hr capsule 00:00: mouth in [place] 00 the Medical morning. Branch amiodarone 2021-02 Yes [id number] 200mg Take 1 [facility] 200 mg 0-18 tablet by ity of tablet 00:00: mouth in [place] 00 the Medical morning. Branch furosemide 2021-02 Yes [id number] 40mg Take 1 [facility] 40 mg 0-18 tablet by ity of tablet 00:00: mouth [place] 00 every Medical morning Branch and evening. nitroglycer 2021-[id number] 1 [facility] in 0.4 mg 0-18 tablet ity of sublingual 00:00: under the [place] tablet 00 tongue Medical every 5 Branch (five) minutes as needed for Chest pain. metoprolol 2021-02 Yes [id number] 50mg Take 1 U nivers tartrate 50 0-18 tablet by ity of mg tablet 00:00: mouth in [facility] [place] [facility] 00 the Medical morning Branch and 1 tablet in the evening. lisinopriL 2021-02 Yes [id number] 10mg Take 1 U nivers 10 mg 0-18 tablet by ity of tablet 00:00: mouth in [place] 00 the Medical morning. Branch diltiazem 2021-02 Yes [id number] 240mg Take 1 U nivers 240 mg 24 0-18 capsule by ity of hr capsule 00:00: mouth in [place] 00 the Medical morning. Branch amiodarone 2021-02 Yes [id number] 200mg Take 1 [facility] 200 mg 0-18 tablet by ity of tablet 00:00: mouth in [place] 00 the Medical morning. Branch furosemide 2021-02 Yes [id number] 40mg Take 1 [facility] 40 mg 0-18 tablet by ity of tablet 00:00: mouth [place] every Medical morning Branch and evening. nitroglycer 2021-[id number] 1 [facility] in 0.4 mg 0-18 tablet ity of sublingual 00:00: under the [place] tablet 00 tongue Medical every 5 Branch (five) minutes as needed for Chest pain. metoprolol 2021-02 Yes [id number] 50mg Take 1 U nivers tartrate 50 0-18 tablet by ity of mg tablet 00:00: [facility] the Medical morning Branch and 1 tablet in the evening. lisinopriL 2021-02 Yes [id number] 10mg Take 1 U nivers 10 mg 0-18 tablet by ity of tablet 00:00: mouth in [place] 00 the Medical morning. Branch diltiazem 2021-02 Yes [id number] 240mg Take 1 U nivers 240 mg 24 0-18 capsule by ity of hr capsule 00:00: mouth in [place] 00 the Medical morning. Branch amiodarone 2021-02 Yes [id number] 200mg Take 1 [facility] 200 mg 0-18 tablet by ity of tablet 00:00: mouth in [place] 00 the Medical morning. Branch furosemide 2021-02 Yes [id number] 40mg Take 1 [facility] 40 mg 0-18 tablet by ity of tablet 00:00: mouth [place] 00 every Medical morning Branch and evening. nitroglycer 2021-[id number] 1 [facility] in 0.4 mg 0-18 tablet ity of sublingual 00:00: under the [place] tablet 00 tongue Medical every 5 Branch (five) minutes as needed for Chest pain. metoprolol 2021-02 Yes [id number] 50mg Take 1 U nivers tartrate 50 0-18 tablet by ity of mg tablet 00:00: mouth [facility] 00 the Medical morning Branch and 1 tablet in the evening. lisinopriL 2021-02 Yes [id number] 10mg Take 1 U nivers 10 mg 0-18 tablet by ity of tablet 00:00: mouth in [place] 00 the Medical morning. Branch diltiazem 2021-02 Yes [id number] 240mg Take 1 U nivers 240 mg 24 0-18 capsule by ity of hr capsule 00:00: mouth in [place] 00 the Medical morning. Branch amiodarone 2021-02 Yes [id number] 200mg Take 1 [facility] 200 mg 0-18 tablet by ity of tablet 00:00: mouth in [place] 00 the Medical morning. Branch furosemide 2021-02 Yes [id number] 40mg Take 1 [facility] 40 mg 0-18 tablet by ity of tablet 00:00: mouth [place] every Medical morning Branch and evening. nitroglycer 2021-[id number] 1 [facility] in 0.4 mg 0-18 tablet ity of sublingual 00:00: under the [place] tablet 00 tongue Medical every 5 Branch (five) minutes as needed for Chest pain. metoprolol 2021-02 Yes [id number] 50mg Take 1 U nivers tartrate 50 0-18 tablet by ity of mg tablet 00:00: mouth in [facility] [place] [facility] the Medical morning Branch and 1 tablet in the evening. lisinopriL 2021-02 Yes [id number] 10mg Take 1 U nivers 10 mg 0-18 tablet by ity of tablet 00:00: mouth in [place] the Medical morning. Branch diltiazem 2021-02 Yes [id number] 240mg Take 1 U nivers 240 mg 24 0-18 capsule by ity of hr capsule 00:00: mouth in [place] 00 the Medical morning. Branch amiodarone 2021-02 Yes [id number] 200mg Take 1 [facility] 200 mg 0-18 tablet by ity of tablet 00:00: mouth in [place] 00 the Medical morning. Branch furosemide 2021-02 Yes [id number] 40mg Take 1 [facility] 40 mg 0-18 tablet by ity of tablet 00:00: mouth [place] 00 every Medical morning Branch and evening. nitroglycer 2021-[id number] 1 [facility] in 0.4 mg 0-18 tablet ity of sublingual 00:00: under the [place] tablet 00 tongue Medical every 5 Branch (five) minutes as needed for Chest pain. metoprolol 2021-02 Yes [id number] 50mg Take 1 U nivers tartrate 50 0-18 tablet by ity of mg tablet 00:00: mouth [place] 00 the Medical morning Branch and 1 tablet in the evening. lisinopriL 2021-02 Yes [id number] 10mg Take 1 U nivers 10 mg 0-18 tablet by ity of tablet 00:00: mouth in [place] 00 the Medical morning. Branch diltiazem 2021-02 Yes [id number] 240mg Take 1 U nivers 240 mg 24 0-18 capsule by ity of hr capsule 00:00: mouth in [place] 00 the Medical morning. Branch amiodarone 2021-02 Yes [id number] 200mg Take 1 [facility] 200 mg 0-18 tablet by ity of tablet 00:00: mouth in [place] 00 the Medical morning. Branch furosemide 2021-02 Yes [id number] 40mg Take 1 [facility] 40 mg 0-18 tablet by ity of tablet 00:00: mouth [place] 00 every Medical morning Branch and evening. nitroglycer 2021-[id number] 1 [facility] in 0.4 mg 0-18 tablet ity of sublingual 00:00: under the [place] tablet 00 tongue Medical every 5 Branch (five) minutes as needed for Chest pain. metoprolol 2021-02 Yes [id number] 50mg Take 1 U nivers tartrate 50 0-18 tablet by ity of mg tablet 00:00: mouth in [facility] s 00 the Medical morning Branch and 1 tablet in the evening. lisinopriL 2021-02 Yes [id number] 10mg Take 1 U nivers 10 mg 0-18 tablet by ity of tablet 00:00: mouth in [place] 00 the Medical morning. Branch diltiazem 2021-02 Yes [id number] 240mg Take 1 U nivers 240 mg 24 0-18 capsule by ity of hr capsule 00:00: mouth in [place] 00 the Medical morning. Branch amiodarone 2021-02 Yes [id number] 200mg Take 1 [facility] 200 mg 0-18 tablet by ity of tablet 00:00: mouth in [place] 00 the Medical morning. Branch furosemide 2021-02 Yes [id number] 40mg Take 1 [facility] 40 mg 0-18 tablet by ity of tablet 00:00: mouth [place] 00 every Medical morning Branch and evening. nitroglycer 2021-[id number] 1 [facility] in 0.4 mg 0-18 tablet ity of sublingual 00:00: under the [place] tablet 00 tongue Medical every 5 Branch (five) minutes as needed for Chest pain. metoprolol 2021-02 Yes [id number] 50mg Take 1 U nivers tartrate 50 0-18 tablet by ity of mg tablet 00:00: mouth in [facility] 00 the Medical morning Branch and 1 tablet in the evening. lisinopriL 2021-02 Yes [id number] 10mg Take 1 U nivers 10 mg 0-18 tablet by ity of tablet 00:00: mouth in [place] 00 the Medical morning. Branch diltiazem 2021-02 Yes [id number] 240mg Take 1 U nivers 240 mg 24 0-18 capsule by ity of hr capsule 00:00: mouth in [place] 00 the Medical morning. Branch amiodarone 2021-02 Yes [id number] 200mg Take 1 [facility] 200 mg 0-18 tablet by ity of tablet 00:00: mouth in [place] 00 the Medical morning. Branch furosemide 2021-02 Yes [id number] 40mg Take 1 [facility] 40 mg 0-18 tablet by ity of tablet 00:00: mouth [place] 00 every Medical morning Branch and evening. nitroglycer 2021-[id number] 1 [facility] in 0.4 mg 0-18 tablet ity of sublingual 00:00: under the [place] tablet 00 tongue Medical every 5 Branch (five) minutes as needed for Chest pain. metoprolol 2021-02 Yes [id number] 50mg Take 1 U nivers tartrate 50 0-18 tablet by ity of mg tablet 00:00: mouth in [facility] 00 the Medical morning Branch and 1 tablet in the evening. lisinopriL 2021-02 Yes [id number] 10mg Take 1 U nivers 10 mg 0-18 tablet by ity of tablet 00:00: mouth in [place] 00 the Medical morning. Branch diltiazem 2021-02 Yes [id number] 240mg Take 1 U nivers 240 mg 24 0-18 capsule by ity of hr capsule 00:00: mouth in [place] 00 the Medical morning. Branch furosemide 2021-023- No [id number] 40mg Take 1 [facility] 40 mg 0-18 04-04 tablet by ity of tablet 00:00: 00:00 mouth [place] 00 :00 every Medical morning Branch and evening. amiodarone 2021-02- No [id number] 200mg Take 1 [facility] 200 mg 0-18 12-23 tablet by ity of tablet 00:00: 00:00 mouth in [place] 00 :00 the Medical morning. Branch pravastatin 2021-02 Yes [id number] 20mg Take 1 [facility] 20 mg 0-10 tablet by ity of tablet 00:00: mouth at [place] 00 bedtime. Medical Branch pravastatin 2021-02 Yes [id number] 20mg Take 1 [facility] 20 mg 0-10 tablet by ity of tablet 00:00: mouth at [place] 00 bedtime. Medical Branch pravastatin 2021-02 Yes [id number] 20mg Take 1 [facility] 20 mg 0-10 tablet by ity of tablet 00:00: mouth at [place] 00 bedtime. Medical Branch pravastatin 2021-02 Yes [id number] 20mg Take 1 [facility] 20 mg 0-10 tablet by ity of tablet 00:00: mouth at [place] 00 bedtime. Medical Branch pravastatin 2021-02 Yes [id number] 20mg Take 1 [facility] 20 mg 0-10 tablet by ity of tablet 00:00: mouth at [place] 00 bedtime. Medical Branch pravastatin 2021-02 Yes [id number] 20mg Take 1 [facility] 20 mg 0-10 tablet by ity of tablet 00:00: mouth at [place] 00 bedtime. Medical Branch pravastatin 2021-02 Yes [id number] 20mg Take 1 [facility] 20 mg 0-10 tablet by ity of tablet 00:00: mouth at [place] 00 bedtime. Medical Branch pravastatin 2021-02 Yes [id number] 20mg Take 1 [facility] 20 mg 0-10 tablet by ity of tablet 00:00: mouth at [place] 00 bedtime. Medical Branch pravastatin 2021-02 Yes [id number] 20mg Take 1 [facility] 20 mg 0-10 tablet by ity of tablet 00:00: mouth at [place] 00 bedtime. Medical Branch pravastatin 2021-02- No [id number] 20mg Take 1 [facility] 20 mg 0-10 11-30 tablet by ity of tablet 00:00: 00:00 mouth at [place] 00 :00 bedtime. Medical Branch pravastatin 2021-02- No [id number] 20mg Take 1 [facility] 20 mg 0-10 11-30 tablet by ity of tablet 00:00: 00:00 mouth at [place] 00 :00 bedtime. Medical Branch levETIRAcet 2021-02 Yes 500mg Q.5D Take 500 U T am (Keppra) 0-06 mg by Health 500 MG 00:00: mouth tablet 00 every 12 (twelve) hours. potassium 2021-02 Yes 20meq QD Take 20 [facility] chloride CR 0-05 mEq by Health (Klor-Con 00:00: mouth 1 M20) 20 MEQ 00 (one) time ER tablet each day. with food Eliquis 5 2021-02 Yes 5mg Q.5D Take 5 mg [facility] MG tablet 0-03 by mouth Health 00:00: in the 00 morning and 5 mg before bedtime. KCL 2021- No 40meq 40 mEq, [facility] (KLOR-CON 9-19 09-19 Oral, ity of M20) tablet 15:15: 16:36 ONCE, 1 [place] 40 mEq 00 :00 dose, On Medical [facility] Branch 11/16/21 at 1015, Routine potassium Yes 1{tbl} Take 1 Univ ers chloride 20 9-19 tablet by ity of mEq tablet 14:43: mouth [place] 26 daily. Medical Branch metOLazone Yes 5mg Take 5 mg [place] 5 mg tablet -19 by mouth ity of 14:43: daily. [place] [address] Medical Branch HYDROcodone Yes 1{tbl} Take 1 Un [place] -acetaminop 9-19 tablet by ity of hen 10-325 14:43: mouth [place] mg tablet 26 every 6 Medical (six) Branch hours as needed. metoprolol Yes 50mg Take 50 mg U nivers tartrate 50 9-19 by mouth. ity of mg tablet 14:43: [place] [address] Medical Branch nitroglycer Yes .4mg [address] 0.4 U nivers in 0.4 mg 9-19 mg under ity of sublingual 14:43: the [place] tablet 26 tongue. Medical Branch potassium Yes 1{tbl} Take 1 Univ ers chloride 20 9-19 tablet by ity of mEq tablet 14:43: mouth [place] 26 daily. Medical Branch metOLazone 0 Yes 5mg Take 5 mg [facility] [place] 5 mg tablet 9-19 by mouth ity of 14:43: daily. [address] Branch HYDROcodone 0 Yes 1{tbl} Take 1 Un [place] -acetaminop 9-19 tablet by ity of hen 10-325 14:43: mouth [place] mg tablet 26 every 6 Medical (six) Branch hours as needed. metoprolol 2021-0 Yes 50mg Take 50 mg U nivers tartrate 50 9-19 by mouth. ity of mg tablet 14:43: [address] Branch nitroglycer [address] 0.4 U nivers in 0.4 mg 9-19 mg under ity of sublingual 14:43: the [place] tablet 26 tongue. Medical Branch potassium 0 Yes 1{tbl} Take 1 Univ ers chloride 20 9-19 tablet by ity of mEq tablet 14:43: mouth [place] 26 daily. [facility] Branch metOLazone 0 Yes 5mg Take 5 mg Un [place] 5 mg tablet 9-19 by mouth ity of 14:43: daily. [address] Branch HYDROcodone 0 Yes 1{tbl} Take 1 Un [place] -acetaminop 9-19 tablet by ity of hen 10-325 14:43: mouth [place] mg tablet 26 every 6 Medical (six) Branch hours as needed. metoprolol 2021-0 Yes 50mg Take 50 mg U nivers tartrate 50 9-19 by mouth. ity of mg tablet 14:43: [address] nitroglycer [address] 0.4 U nivers in 0.4 mg 9-19 mg under ity of sublingual 14:43: the [place] tablet 26 tongue. Medical Branch potassium 2021-0 Yes 1{tbl} Take 1 Univ ers chloride 20 9-19 tablet by ity of mEq tablet 14:43: mouth [place] 26 daily. Medical Branch metOLazone 2021-0 Yes 5mg Take 5 mg [facility] [place] 5 mg tablet 9-19 by mouth ity of 14:43: daily. [address] HYDROcodone 2021-0 Yes 1{tbl} Take 1 Un [place] -acetaminop 9-19 tablet by ity of hen 10-325 14:43: mouth [place] mg tablet 26 every 6 Medical (six) Branch hours as needed. metoprolol 2021-0 Yes 50mg Take 50 mg U nivers tartrate 50 9-19 by mouth. ity of mg tablet 14:43: [address] Branch nitroglycer 2021-[address] 0.4 U nivers in 0.4 mg 9-19 mg under ity of sublingual 14:43: the [place] tablet 26 tongue. Medical Branch potassium 2021-0 Yes 1{tbl} Take 1 Univ ers chloride 20 9-19 tablet by ity of mEq tablet 14:43: mouth [place] 26 daily. Medical Branch metOLazone 2021-0 Yes 5mg Take 5 mg [facility] [place] 5 mg tablet 9-19 by mouth ity of 14:43: daily. [address] Branch HYDROcodone 0 Yes 1{tbl} Take 1 Un [place] -acetaminop 9-19 tablet by ity of hen 10-325 14:43: mouth [place] mg tablet 26 every 6 Medical (six) Branch hours as needed. metoprolol 2021-0 Yes 50mg Take 50 mg U nivers tartrate 50 9-19 by mouth. ity of mg tablet 14:43: [address] nitroglycer 2021-[address] 0.4 U nivers in 0.4 mg 9-19 mg under ity of sublingual 14:43: the [place] tablet 26 tongue. Medical Branch potassium 2021-0 Yes 1{tbl} Take 1 Univ ers chloride 20 9-19 tablet by ity of mEq tablet 14:43: mouth [place] 26 daily. Medical Branch metOLazone 2021-0 Yes 5mg Take 5 mg [facility] [place] 5 mg tablet 9-19 by mouth ity of 14:43: daily. [address] Branch HYDROcodone 2021-0 Yes 1{tbl} Take 1 Un [place] -acetaminop 9-19 tablet by ity of hen 10-325 14:43: mouth [place] mg tablet 26 every 6 Medical (six) Branch hours as needed. metoprolol 2-0 Yes 50mg Take 50 mg U nivers tartrate 50 9-19 by mouth. ity of mg tablet 14:43: [address] Branch nitroglycer 2021-[address] 0.4 U nivers in 0.4 mg 9-19 mg under ity of sublingual 14:43: the [place] tablet 26 tongue. Medical Branch potassium Yes 1{tbl} Take 1 Univ ers chloride 20 9-19 tablet by ity of mEq tablet 14:43: mouth [place] 26 daily. Medical Branch metOLazone 0 Yes 5mg Take 5 mg [facility] [place] 5 mg tablet 9-19 by mouth ity of 14:43: daily. [place] [address] Medical Branch HYDROcodone Yes 1{tbl} Take 1 Un [place] -acetaminop 9-19 tablet by ity of hen 10-325 14:43: mouth [place] mg tablet 26 every 6 Medical (six) Branch hours as needed. metoprolol 0 Yes 50mg Take 50 mg U nivers tartrate 50 9-19 by mouth. ity of mg tablet 14:43: [address] Branch nitroglycer Yes .4mg Place 0.4 U nivers in 0.4 mg 9-19 mg under ity of sublingual 14:43: the tablet 26 tongue. Medical Branch potassium Yes 1{tbl} Take 1 Univ ers chloride 20 9-19 tablet by ity of mEq tablet 14:43: mouth [place] 26 daily. Medical Branch metOLazone Yes 5mg Take 5 mg [facility] [place] 5 mg tablet 9-19 by mouth ity of 14:43: daily. [address] Branch HYDROcodone Yes 1{tbl} Take 1 Un [place] -acetaminop 9-19 tablet by ity of hen 10-325 14:43: mouth [place] mg tablet 26 every 6 Medical (six) Branch hours as needed. metoprolol 0 Yes 50mg Take 50 mg U nivers tartrate 50 9-19 by mouth. ity of mg tablet 14:43: [place] [address] Medical Branch nitroglycer Yes .4mg Place 0.4 U nivers in 0.4 mg 9-19 mg under ity of sublingual 14:43: the [place] tablet 26 tongue. Medical Branch potassium Yes 1{tbl} Take 1 Univ ers chloride 20 9-19 tablet by ity of mEq tablet 14:43: mouth [place] 26 daily. Medical Branch metOLazone 0 Yes 5mg Take 5 mg [facility] [place] 5 mg tablet 9-19 by mouth ity of 14:43: daily. Medical Branch HYDROcodone 0 Yes 1{tbl} Take 1 Un [place] -acetaminop 9-19 tablet by ity of hen 10-325 14:43: mouth [place] mg tablet 26 every 6 Medical (six) Branch hours as needed. potassium 2021-0 Yes 1{tbl} Take 1 Univ ers chloride 20 9-19 tablet by ity of mEq tablet 14:43: mouth [place] 26 daily. Medical Branch metOLazone 2021-0 Yes 5mg Take 5 mg [facility] [place] 5 mg tablet 9-19 by mouth ity of 14:43: daily. Medical Branch HYDROcodone 0 Yes 1{tbl} Take 1 Un [place] -acetaminop 9-19 tablet by ity of hen 10-325 14:43: mouth [place] mg tablet 26 every 6 Medical (six) Branch hours as needed. potassium Yes 1{tbl} Take 1 Univ ers chloride 20 9-19 tablet by ity of mEq tablet 14:43: mouth [place] 26 daily. Medical Branch metOLazone 0 Yes 5mg Take 5 mg [facility] [place] 5 mg tablet 9-19 by mouth ity of 14:43: daily. Medical Branch HYDROcodone 0 Yes 1{tbl} Take 1 Un [place] -acetaminop 9-19 tablet by ity of hen 10-325 14:43: mouth [place] mg tablet 26 every 6 Medical (six) Branch hours as needed. potassium 0 Yes 1{tbl} Take 1 Univ ers chloride 20 9-19 tablet by ity of mEq tablet 14:43: mouth [place] 26 daily. Medical Branch metOLazone 0 Yes 5mg Take 5 mg [facility] [place] 5 mg tablet 9-19 by mouth ity of 14:43: daily. Medical Branch HYDROcodone 0 Yes 1{tbl} Take 1 Un [place] -acetaminop 9-19 tablet by ity of hen 10-325 14:43: mouth [place] mg tablet 26 every 6 Medical (six) Branch hours as needed. potassium 2021-0 Yes 1{tbl} Take 1 Univ ers chloride 20 9-19 tablet by ity of mEq tablet 14:43: mouth [place] 26 daily. Medical Branch metOLazone 0 Yes 5mg Take 5 mg [facility] [place] 5 mg tablet 9-19 by mouth ity of 14:43: daily. [address] Branch HYDROcodone 2021-0 Yes 1{tbl} Take 1 Un [place] -acetaminop 9-19 tablet by ity of hen 10-325 14:43: mouth [place] mg tablet 26 every 6 Medical (six) Branch hours as needed. potassium 0 Yes 1{tbl} Take 1 Univ ers chloride 20 9-19 tablet by ity of mEq tablet 14:43: mouth [place] 26 daily. Medical Branch metOLazone 0 Yes 5mg Take 5 mg [facility] [place] 5 mg tablet 9-19 by mouth ity of 14:43: daily. [address] HYDROcodone 0 Yes 1{tbl} Take 1 Un [place] -acetaminop 9-19 tablet by ity of hen 10-325 14:43: mouth [place] mg tablet 26 every 6 Medical (six) Branch hours as needed. metOLazone 0 Yes 5mg Take 5 mg [facility] [place] 5 mg tablet 9-19 by mouth ity of 14:43: daily. [address] metOLazone 0 Yes 5mg Take 5 mg [facility] [place] 5 mg tablet 9-19 by mouth ity of 14:43: daily. [address] apixaban 0 2021- No Take by Unive rs (ELIQUIS 9-19 09-19 mouth. ity of ORAL) 10:39: 00:00 [place] 30 :00 [facility] HYDROcodone 2021-0 Yes 1{tbl} 1 tablet, Univers -acetaminop 9-19 Oral, ity of hen (NORCO) 03:05: Q6HPRN, [place] as 10-325 mg 17 Starting Medica l tablet 1 on [place] Branch tablet 11/15/21 at 2205, Until Discontinu ed, Routine, Pain (scale 4-6), Pain (scale 7-10) apixaban 2021-0 2021- No 1358 5mg Take 1 Univer s (ELIQUIS) 5 9-19 10-20 tablet by it y of mg tablet 00:00: 04:59 mouth in [place] 00 :00 the Medical morning Branch and 1 tablet in the evening. Do all this for 30 days. Indication s: atrial fibrillati on apixaban 2021-0 2021- No 1358 5mg Take 1 Univer s (ELIQUIS) 5 9-19 10-20 tablet by it y of mg tablet 00:00: 04:59 mouth in [place] 00 :00 the Medical morning Branch and 1 tablet in the evening. Do all this for 30 days. Indication s: atrial fibrillati on furosemide 2021-2021- No [id number] 40mg Take 1 [facility] 40 mg 9-19 10-20 tablet by ity of tablet 00:00: 04:59 mouth [place] 00 :00 every Medical morning Branch and evening for 30 days. apixaban 2021-0 2021- No 1358 5mg Take 1 Univer s (ELIQUIS) 5 9-19 10-20 tablet by it y of mg tablet 00:00: 04:59 mouth in [place] 00 :00 the Medical morning Branch and 1 tablet in the evening. Do all this for 30 days. Indication s: atrial fibrillati on apixaban 2021-0 2021- No 1358 5mg Take 1 Univer s (ELIQUIS) 5 9-19 10-20 tablet by it y of mg tablet 00:00: 04:59 mouth in [place] 00 :00 the Medical morning Branch and 1 tablet in the evening. Do all this for 30 days. Indication s: atrial fibrillati on furosemide 2021-0 2021- No [id number] 40mg Take 1 [facility] 40 mg 9-19 10-20 tablet by ity of tablet 00:00: 04:59 mouth [place] 00 :00 every Medical morning Branch and evening for 30 days. apixaban 2021-0 2021- No 1358 5mg Take 1 [facility] (ELIQUIS) 5 9-19 10-20 tablet by it y of mg tablet 00:00: 04:59 mouth in [place] 00 :00 the Medical morning Branch and 1 tablet in the evening. Do all this for 30 days. Indication s: atrial fibrillati on apixaban 2021-0 2021- No 1358 5mg Take 1 [facility] (ELIQUIS) 5 9-19 10-20 tablet by it y of mg tablet 00:00: 04:59 mouth in [place] 00 :00 the Medical morning Branch and 1 tablet in the evening. Do all this for 30 days. Indication s: atrial fibrillati on furosemide 2021-0 2021- No [id number] 40mg Take 1 [facility] 40 mg 9-19 10-20 tablet by ity of tablet 00:00: 04:59 mouth [place] 00 :00 every Medical morning Branch and evening for 30 days. apixaban 2021-0 2- No 1358 5mg Take 1 [facility] (ELIQUIS) 5 9-19 10-20 tablet by it y of mg tablet 00:00: 04:59 mouth in [place] 00 :00 the Medical morning Branch and 1 tablet in the evening. Do all this for 30 days. Indication s: atrial fibrillati on apixaban 2021-0 2- No 1358 5mg Take 1 [facility] (ELIQUIS) 5 9-19 10-20 tablet by it y of mg tablet 00:00: 04:59 mouth in [place] 00 :00 the Medical morning Branch and 1 tablet in the evening. Do all this for 30 days. Indication s: atrial fibrillati on furosemide 2021-0 2021- No [id number] 40mg Take 1 [facility] 40 mg 9-19 10-20 tablet by ity of tablet 00:00: 04:59 mouth [place] 00 :00 every Medical morning Branch and evening for 30 days. apixaban 2021-0 2- No 1358 5mg Take 1 [facility] (ELIQUIS) 5 9-19 10-20 tablet by it y of mg tablet 00:00: 04:59 mouth in [place] 00 :00 the Medical morning Branch and 1 tablet in the evening. Do all this for 30 days. Indication s: atrial fibrillati on apixaban 2-0 2- No 1358 5mg Take 1 [facility] (ELIQUIS) 5 9-19 10-20 tablet by it y of mg tablet 00:00: 04:59 mouth in [place] 00 :00 the Medical morning Branch and 1 tablet in the evening. Do all this for 30 days. Indication s: atrial fibrillati on furosemide 2021-0 2021- No [id number] 40mg Take 1 [facility] 40 mg 9-19 10-20 tablet by ity of tablet 00:00: 04:59 mouth [place] 00 :00 every Medical morning Branch and evening for 30 days. apixaban 2-0 2- No 1358 5mg Take 1 [facility] (ELIQUIS) 5 9-19 10-20 tablet by it y of mg tablet 00:00: 04:59 mouth in [place] 00 :00 the Medical morning Branch and 1 tablet in the evening. Do all this for 30 days. Indication s: atrial fibrillati on apixaban 2021-0 2- No 1358 5mg Take 1 [facility] (ELIQUIS) 5 9-19 10-20 tablet by it y of mg tablet 00:00: 04:59 mouth in [place] 00 :00 the Medical morning Branch and 1 tablet in the evening. Do all this for 30 days. Indication s: atrial fibrillati on furosemide 2021-0 2- No [id number] 40mg Take 1 [facility] 40 mg 9-19 10-20 tablet by ity of tablet 00:00: 04:59 mouth [place] 00 :00 every Medical morning Branch and evening for 30 days. apixaban 2021-0 2- No 1358 5mg Take 1 [facility] (ELIQUIS) 5 9-19 10-20 tablet by it y of mg tablet 00:00: 04:59 mouth in [place] 00 :00 the Medical morning Branch and 1 tablet in the evening. Do all this for 30 days. Indication s: atrial fibrillati on apixaban 2021-0 2- No 1358 5mg Take 1 [facility] (ELIQUIS) 5 9-19 10-20 tablet by it y of mg tablet 00:00: 04:59 mouth in [place] 00 :00 the Medical morning Branch and 1 tablet in the evening. Do all this for 30 days. Indication s: atrial fibrillati on furosemide 2021-0 2- No [id number] 40mg Take 1 [facility] 40 mg 9-19 10-20 tablet by ity of tablet 00:00: 04:59 mouth [place] 00 :00 every Medical morning Branch and evening for 30 days. apixaban 2-0 2- No 1358 5mg Take 1 [facility] (ELIQUIS) 5 9-19 10-20 tablet by it y of mg tablet 00:00: 04:59 mouth in [place] 00 :00 the Medical morning Branch and 1 tablet in the evening. Do all this for 30 days. Indication s: atrial fibrillati on apixaban 2-0 2- No 1358 5mg Take 1 [facility] (ELIQUIS) 5 9-19 10-20 tablet by it y of mg tablet 00:00: 04:59 mouth in [place] 00 :00 the Medical morning Branch and 1 tablet in the evening. Do all this for 30 days. Indication s: atrial fibrillati on furosemide 2021-2021- No [id number] 40mg Take 1 [facility] 40 mg 9-19 10-20 tablet by ity of tablet 00:00: 04:59 mouth [place] 00 :00 every Medical morning Branch and evening for 30 days. apixaban 2021-2021- No 1358 5mg Take 1 [facility] (ELIQUIS) 5 9-19 10-20 tablet by it y of mg tablet 00:00: 04:59 mouth in [place] 00 :00 the Medical morning Branch and 1 tablet in the evening. Do all this for 30 days. Indication s: atrial fibrillati on apixaban 2021-0 2021- No 1358 5mg Take 1 [facility] (ELIQUIS) 5 9-19 10-20 tablet by it y of mg tablet 00:00: 04:59 mouth in [place] 00 :00 the Medical morning Branch and 1 tablet in the evening. Do all this for 30 days. Indication s: atrial fibrillati on apixaban 2021-0 2021- No 1358 5mg Take 1 [facility] (ELIQUIS) 5 9-19 10-20 tablet by it y of mg tablet 00:00: 04:59 mouth in [place] 00 :00 the Medical morning Branch and 1 tablet in the evening. Do all this for 30 days. Indication s: atrial fibrillati on apixaban 2021-0 2021- No 1358 5mg Take 1 [facility] (ELIQUIS) 5 9-19 10-20 tablet by it y of mg tablet 00:00: 04:59 mouth in [place] 00 :00 the Medical morning Branch and 1 tablet in the evening. Do all this for 30 days. Indication s: atrial fibrillati on furosemide 2021-0 2021- No [id number] 40mg Take 1 [facility] 40 mg 9-19 10-18 tablet by ity of tablet 00:00: 00:00 mouth [place] 00 :00 every Medical morning Branch and evening for 30 days. furosemide 2021-0 2021- No [id number] 40mg Take 1 [facility] 40 mg 9-19 10-18 tablet by ity of tablet 00:00: 00:00 mouth [place] 00 :00 every Medical morning Branch and evening for 30 days. furosemide 2021-0 Yes 40mg 40 mg, [facility] (LASIX) 11-15 Slow IV ity of injection 14:00: Push, [place] 40 mg 00 DAILY, Medical First dose Branch on 11/15/21 at 0900, Until Discontinu ed, Routine metOLazone 0 Yes 5mg 5 mg, [facility] (ZAROXOLYN) 11-15 Oral, ity of tablet 5 mg 14:00: DAILY, [place] 00 First dose Medical on Sun Branch 11/15/21 at 0900, Until Discontinu ed, Routine lisinopriL 0 Yes 10mg 10 mg, [facility] (PRINIVIL,Z 11-15 Oral, ity of ESTRIL) 14:00: DAILY, [place] tablet 10 00 First dose Medi veronica mg on Sun Branch 11/15/21 at 0900, Until Discontinu ed, Routine levETIRAcet 0 Yes 500mg 500 mg, [facility] am (KEPPRA) 11-15 Oral, ity of tablet 500 14:00: DAILY, [place] mg 00 First dose Medical on Sun Branch 11/15/21 at 0900, Until Discontinu ed, Routine KCL 0 Yes 20meq 20 mEq, [facility] (KLOR-CON 11-15 Oral, ity of M20) tablet 14:00: DAILY, [place] 20 mEq 00 First dose Medical on Sun Branch 11/15/21 at 0900, Until Discontinu ed, Routine diltiazem 0 Yes 240mg 240 mg, Univ ers XR 11-15 Oral, ity of (DILT-XR) 14:00: DAILY, [place] capsule 240 00 First dose Me dical mg on Sun Branch 11/15/21 at 0900, Until Discontinu ed amiodarone 2021-0 Yes 200mg 200 mg, Uni vers (PACERONE) 11-15 Oral, ity of tablet 200 14:00: DAILY, [place] mg 00 First dose Medical on Sun Branch 11/15/21 at 0900, Until Discontinu ed, Routine ipratropium 2021-0 Yes [id number] 3mL 3 mL, U nivers -albuteroL 11-15 Inhalation ity of (DUONEB) 02:49: , TIDPRN, [place] 0.5 mg-3 44 Starting Medical mg(2.5 mg on [facility] base)/3 mL 11/14/21 at nebulizer 2149, solution 3 Until mL Discontinu ed, SHAUN, Wheezing, Shortness of Breath metoprolol 0 Yes 50mg 50 mg, Unive rs tartrate 11-15 Oral, BID, ity o f (LOPRESSOR) 01:00: First dose [place] tablet 50 00 on Sat Medical mg 11/14/21 at Branch 1999, Until Discontinu ed, Routine apixaban Yes 5mg 5 mg, [facility] (ELIQUIS) 11-15 Oral, BID, ity of tablet 5 mg 01:00: First dose [place] 00 on [facility] Medical 11/14/21 at [place] 1999, Until Discontinu ed
Adamaris cations: Non-Valvul ar Atrial Fibrillati on acetaminoph Yes 650mg 650 mg, Un [facility]win en 11-15 Oral, ity of (TYLENOL) 00:19: Q6HPRN, [place] tablet 650 53 Starting Medic al mg on [facility] 11/14/21 at 1919, Until Discontinu ed, Routine, Pain (scale 1-3) nitroglycer Yes .4mg 0.4 mg, Uni vers in 11-15 Sublingual ity of (NITROSTAT) 00:19: , Q5MIN [place] sublingual 33 PRN, Medical tablet 0.4 Starting Branc h mg on [facility] 11/14/21 at 1919, Until Discontinu ed, Routine, Chest pain furosemide 0 2021- No 40mg 40 mg, Univ ers (LASIX) 11-14 Slow IV ity of injection 22:30: 23:42 Push, [place] 40 mg 00 :00 ONCE, 1 Medical dose, On Branch [facility] 11/14/21 at 1745, SHAUN ipratropium 0 2021- No [id number] 3mL 3 mL, Univers -albuteroL 11-14 Inhalation it y of (DUONEB) 22:03: 22:16 , ONCE, 1 [place] 0.5 mg-3 00 :00 dose, On Medical mg(2.5 mg [facility])/3 mL 11/14/21 at nebulizer 1715, SHAUN solution 3 mL acetaminoph 2021- No [id number] 650mg 650 mg, [facility] en 11-14 Oral, ity of (TYLENOL) 22:02: 22:35 ONCE, 1 [place] tablet 650 00 :00 dose, On Medic al mg Sat Branch 11/14/21 at 1715, SHAUN LEVETIRACET Yes [id number] TAKE ONE [facility] AM 500 mg 6-07 TABLET BY ity o f tablet 00:00: MOUTH ONCE DAILY Medical Branch LEVETIRACET 0 Yes [id number] TAKE ONE [facility] AM 500 mg 6-07 TABLET BY ity o f tablet 00:00: MOUTH ONCE DAILY Medical Branch LEVETIRACET 2021-0 Yes [id number] TAKE ONE [facility] AM 500 mg 6-07 TABLET BY ity o f tablet 00:00: MOUTH ONCE DAILY Medical Branch LEVETIRACET 0 Yes [id number] TAKE ONE [facility] AM 500 mg 6-07 TABLET BY ity o f tablet 00:00: MOUTH ONCE DAILY Medical Branch LEVETIRACET 2021-0 Yes [id number] TAKE ONE [facility] AM 500 mg 6-07 TABLET BY ity o f tablet 00:00: MOUTH ONCE DAILY Medical Branch LEVETIRACET 2021-0 Yes [id number] TAKE ONE [facility] AM 500 mg 6-07 TABLET BY ity o f tablet 00:00: MOUTH ONCE DAILY Medical Branch LEVETIRACET 2021-0 Yes [id number] TAKE ONE [facility] AM 500 mg 6-07 TABLET BY ity o f tablet 00:00: MOUTH ONCE DAILY Medical Branch LEVETIRACET 2021-0 Yes [id number] TAKE ONE [facility] AM 500 mg 6-07 TABLET BY ity o f tablet 00:00: MOUTH ONCE DAILY Medical Branch LEVETIRACET 2021-0 Yes [id number] TAKE ONE [facility] AM 500 mg 6-07 TABLET BY ity o f tablet 00:00: MOUTH ONCE DAILY Medical Branch LEVETIRACET 2021-0 Yes [id number] TAKE ONE [facility] AM 500 mg 6-07 TABLET BY ity o f tablet 00:00: MOUTH ONCE DAILY Medical Branch LEVETIRACET 2021-0 Yes [id number] TAKE ONE [facility] AM 500 mg 6-07 TABLET BY ity o f tablet 00:00: MOUTH ONCE [place] DAILY Medical Branch LEVETIRACET 2021-0 Yes [id number] TAKE ONE [facility] AM 500 mg 6-07 TABLET BY ity o f tablet 00:00: MOUTH ONCE [place] DAILY Medical Branch LEVETIRACET 2021-0 Yes [id number] TAKE ONE [facility] AM 500 mg 6-07 TABLET BY ity o f tablet 00:00: MOUTH ONCE [place] DAILY Medical Branch LEVETIRACET 2021-0 Yes [id number] TAKE ONE [facility] AM 500 mg 6-07 TABLET BY ity o f tablet 00:00: MOUTH ONCE [place] DAILY Medical Branch LEVETIRACET 2021-0 Yes [id number] TAKE ONE [facility] AM 500 mg 6-07 TABLET BY ity o f tablet 00:00: MOUTH ONCE [place] DAILY Medical Branch LEVETIRACET 2021-0 Yes [id number] TAKE ONE [facility] AM 500 mg 6-07 TABLET BY ity o f tablet 00:00: MOUTH ONCE [place] DAILY Medical Branch LEVETIRACET 2021-0 2021- No [id number] TAKE ONE [facility] AM 500 mg 6-07 11-30 TABLET BY ity of tablet 00:00: 00:00 MOUTH ONCE [place] 00 :00 DAILY Medical Branch LEVETIRACET 2021-0 2021- No [id number] TAKE ONE [facility] AM 500 mg 6-07 11-30 TABLET BY ity of tablet 00:00: 00:00 MOUTH ONCE [place] 00 :00 DAILY Medical Branch metoprolol 0 Yes 50mg Take 50 mg U nivers tartrate 50 6-03 by mouth. ity of mg tablet 13:43: [place] 57 Medical Branch nitroglycer [address] 0.4 U nivers in 0.4 mg 6-03 mg under ity of sublingual 13:43: the [facility] 57 tongue. Medical Branch apixaban Yes Take by Univer s (ELIQUIS 6-03 mouth. ity of ORAL) 13:43: [place] 57 Medical Branch metoprolol 0 Yes 50mg Take 50 mg U nivers tartrate 50 6-03 by mouth. ity of mg tablet 13:43: [place] [address] Medical Branch nitroglycer 2022-[address] 0.4 U nivers in 0.4 mg 6-03 mg under ity of sublingual 13:43: the [place] tablet 57 tongue. Medical Branch apixaban Yes Take by Univer s (ELIQUIS 6-03 mouth. ity of ORAL) 13:43: [place] [address] Medical Branch metoprolol 0 Yes 50mg Take 50 mg U nivers tartrate 50 6-03 by mouth. ity of mg tablet 13:43: [place] [address] Medical Branch nitroglycer Yes .4[address] Place 0.4 U nivers in 0.4 mg 6-03 mg under ity of sublingual 13:43: the [place] tablet 57 tongue. Medical Branch apixaban Yes Take by Univer s (ELIQUIS 6-03 mouth. ity of ORAL) 13:43: [place] [address] Medical Branch potassium Yes 1{tbl} Take 1 Univ ers chloride 20 6-03 tablet by ity of mEq tablet 13:40: mouth [place] 41 daily. Medical Branch metOLazone 0 Yes 5mg Take 5 mg Un [facility]win 5 mg tablet 6-03 by mouth ity of 13:40: daily. [place] 41 Medical Branch HYDROcodone 0 Yes 1{tbl} Take 1 Un [facility] -acetaminop 6-03 tablet by ity of hen (NORCO) 13:40: mouth [place] 10-325 mg 41 every 6 Medical tablet (six) Branch hours as needed. potassium 0 Yes 1{tbl} Take 1 Univ ers chloride 20 6-03 tablet by ity of mEq tablet 13:40: mouth [place] 41 daily. Medical Branch metOLazone 0 Yes 5mg Take 5 mg [facility] 5 mg tablet 6-03 by mouth ity of 13:40: daily. [place] 41 Medical Branch HYDROcodone 2021-0 Yes 1{tbl} Take 1 Un edwin -acetaminop 6-03 tablet by ity of hen (NORCO) 13:40: mouth [place] 10-325 mg 41 every 6 Medical tablet (six) Branch hours as needed. potassium 2021-0 Yes 1{tbl} Take 1 Univ ers chloride 20 6-03 tablet by ity of mEq tablet 13:40: mouth [place] 41 daily. Medical Branch metOLazone 2021-0 Yes 5mg Take 5 mg [facility] 5 mg tablet 6-03 by mouth ity of 13:40: daily. [place] 41 Medical Branch HYDROcodone 2021-0 Yes 1{tbl} Take 1 Un [facility] -acetaminop 6-03 tablet by ity of hen (NORCO) 13:40: mouth [place] 10-325 mg 41 every 6 Medical tablet (six) Branch hours as needed. ergocalcife 2021-0 Yes [id number] Take 1 [facility] rol, 6-03 capsule by ity of vitamin d2, 00:00: mouth [place] 1,250 mcg 00 weekly. Medical (50,000 Branch unit) capsule calcium 2021-0 Yes [id number] 500mg Take 1 Uni vers carbonate 6-03 tablet by ity o f (CALCIUM 00:00: mouth [place] 500) 500 mg 00 daily. Medica l calcium Branch (1,250 mg) tablet FLUoxetine 2021-0 Yes [id number] 10mg Take 1 [facility] 10 mg 6-03 capsule by ity of capsule 00:00: mouth [place] 00 daily. Medical Branch buPROPion 2021-0 Yes [id number] 100mg Take 1 [facility] SR 6-03 tablet by ity of (WELLBUTRIN 00:00: mouth 2 [place] SR) 100 mg 00 (two) Medical SR tablet times Branch daily. ergocalcife 2021-0 Yes [id number] Take 1 [facility] rol, 6-03 capsule by ity of vitamin d2, 00:00: mouth [place] 1,250 mcg 00 weekly. Medical (50,000 Branch unit) capsule calcium 2021-0 Yes [id number] 500mg Take 1 Uni vers carbonate 6-03 tablet by ity o f (CALCIUM 00:00: mouth [place] 500) 500 mg 00 daily. Medica l calcium Branch (1,250 mg) tablet FLUoxetine 2021-0 Yes [id number] 10mg Take 1 [facility] 10 mg 6-03 capsule by ity of capsule 00:00: mouth [place] 00 daily. Medical Branch buPROPion 2021-0 Yes [id number] 100mg Take 1 [facility] SR 6-03 tablet by ity of (WELLBUTRIN 00:00: mouth 2 [place] SR) 100 mg 00 (two) Medical SR tablet times Branch daily. ergocalcife 2021-0 Yes [id number] 82545W Take 1 [facility] rol, 6-03 capsule by ity of vitamin d2, 00:00: mouth [place] 1,250 mcg 00 weekly. Medical (50,000 Branch unit) capsule calcium 2021-0 Yes [id number] 500mg Take 1 Uni vers carbonate 6-03 tablet by ity o f (CALCIUM 00:00: mouth [place] 500) 500 mg 00 daily. Medica l calcium Branch (1,250 mg) tablet FLUoxetine 2021-0 Yes [id number] 10mg Take 1 [facility] 10 mg 6-03 capsule by ity of capsule 00:00: mouth [place] 00 daily. Medical Branch buPROPion 2021-0 Yes [id number] 100mg Take 1 [facility] SR 6-03 tablet by ity of (WELLBUTRIN 00:00: mouth 2 [place] SR) 100 mg 00 (two) Medical SR tablet times Branch daily. calcium 2021-0 Yes [id number] 500mg Take 1 Uni vers carbonate 6-03 tablet by ity o f (CALCIUM 00:00: mouth [place] 500) 500 mg 00 daily. Medica l calcium Branch (1,250 mg) tablet buPROPion 2021-0 Yes [id number] 100mg Take 1 [facility] SR 6-03 tablet by ity of (WELLBUTRIN 00:00: mouth 2 [place] SR) 100 mg 00 (two) Medical SR tablet times Branch daily. calcium 2021-0 Yes [id number] 500mg Take 1 Uni vers carbonate 6-03 tablet by ity o f (CALCIUM 00:00: mouth [place] 500) 500 mg 00 daily. Medica l calcium Branch (1,250 mg) tablet buPROPion 2021-0 Yes [id number] 100mg Take 1 [facility] SR 6-03 tablet by ity of (WELLBUTRIN 00:00: mouth 2 [place] SR) 100 mg 00 (two) Medical SR tablet times Branch daily. calcium 2021-0 Yes [id number] 500mg Take 1 Uni vers carbonate 6-03 tablet by ity o f (CALCIUM 00:00: mouth [place] 500) 500 mg 00 daily. Medica l calcium Branch (1,250 mg) tablet buPROPion 2021-0 Yes [id number] 100mg Take 1 [facility] SR 6-03 tablet by ity of (WELLBUTRIN 00:00: mouth 2 [place] SR) 100 mg 00 (two) Medical SR tablet times Branch daily. calcium 2021-0 Yes [id number] 500mg Take 1 Uni vers carbonate 6-03 tablet by ity o f (CALCIUM 00:00: mouth [place] 500) 500 mg 00 daily. Medica l calcium Branch (1,250 mg) tablet buPROPion 2021-0 Yes [id number] 100mg Take 1 [facility] SR 6-03 tablet by ity of (WELLBUTRIN 00:00: mouth 2 [place] SR) 100 mg 00 (two) Medical SR tablet times Branch daily. calcium 2021-0 Yes [id number] 500mg Take 1 Uni vers carbonate 6-03 tablet by ity o f (CALCIUM 00:00: mouth [place] 500) 500 mg 00 daily. Medica l calcium Branch (1,250 mg) tablet buPROPion 2021-0 Yes [id number] 100mg Take 1 [facility] SR 6-03 tablet by ity of (WELLBUTRIN 00:00: mouth 2 [place] SR) 100 mg 00 (two) Medical SR tablet times Branch daily. calcium 2021-0 Yes [id number] 500mg Take 1 Uni vers carbonate 6-03 tablet by ity o f (CALCIUM 00:00: mouth [place] 500) 500 mg 00 daily. Medica l calcium Branch (1,250 mg) tablet buPROPion 2021-0 Yes [id number] 100mg Take 1 [facility] SR 6-03 tablet by ity of (WELLBUTRIN 00:00: mouth 2 [place] SR) 100 mg 00 (two) Medical SR tablet times Branch daily. calcium 2021-0 Yes [id number] 500mg Take 1 Uni vers carbonate 6-03 tablet by ity o f (CALCIUM 00:00: mouth [place] 500) 500 mg 00 daily. Medica l calcium Branch (1,250 mg) tablet buPROPion 2021-0 Yes [id number] 100mg Take 1 [facility] SR 6-03 tablet by ity of (WELLBUTRIN 00:00: mouth 2 [place] SR) 100 mg 00 (two) Medical SR tablet times Branch daily. calcium 2021-0 Yes [id number] 500mg Take 1 Uni vers carbonate 6-03 tablet by ity o f (CALCIUM 00:00: mouth [place] 500) 500 mg 00 daily. Medica l calcium Branch (1,250 mg) tablet buPROPion 2021-0 Yes [id number] 100mg Take 1 [facility] SR 6-03 tablet by ity of (WELLBUTRIN 00:00: mouth 2 [place] SR) 100 mg 00 (two) Medical SR tablet times Branch daily. calcium 2021-0 Yes [id number] 500mg Take 1 Uni vers carbonate 6-03 tablet by ity o f (CALCIUM 00:00: mouth [place] 500) 500 mg 00 daily. Medica l calcium Branch (1,250 mg) tablet buPROPion 2021-0 Yes [id number] 100mg Take 1 [facility] SR 6-03 tablet by ity of (WELLBUTRIN 00:00: mouth 2 [place] SR) 100 mg 00 (two) Medical SR tablet times Branch daily. calcium 2021-0 Yes [id number] 500mg Take 1 Uni vers carbonate 6-03 tablet by ity o f (CALCIUM 00:00: mouth [place] 500) 500 mg 00 daily. Medica l calcium Branch (1,250 mg) tablet buPROPion 2021-0 Yes [id number] 100mg Take 1 [facility] SR 6-03 tablet by ity of (WELLBUTRIN 00:00: mouth 2 [place] SR) 100 mg 00 (two) Medical SR tablet times Branch daily. calcium 2021-0 Yes [id number] 500mg Take 1 Uni vers carbonate 6-03 tablet by ity o f (CALCIUM 00:00: mouth [place] 500) 500 mg 00 daily. Medica l calcium Branch (1,250 mg) tablet buPROPion 2021-0 Yes [id number] 100mg Take 1 [facility] SR 6-03 tablet by ity of (WELLBUTRIN 00:00: mouth 2 [place] SR) 100 mg 00 (two) Medical SR tablet times Branch daily. calcium 2021-0 Yes [id number] 500mg Take 1 Uni vers carbonate 6-03 tablet by ity o f (CALCIUM 00:00: mouth [place] 500) 500 mg 00 daily. Medica l calcium Branch (1,250 mg) tablet buPROPion 2021-0 Yes [id number] 100mg Take 1 [facility] SR 6-03 tablet by ity of (WELLBUTRIN 00:00: mouth 2 [place] SR) 100 mg 00 (two) Medical SR tablet times Branch daily. calcium 2021-0 Yes [id number] 500mg Take 1 Uni vers carbonate 6-03 tablet by ity o f (CALCIUM 00:00: mouth [place] 500) 500 mg 00 daily. Medica l calcium Branch (1,250 mg) tablet buPROPion 2021-0 Yes [id number] 100mg Take 1 [facility] SR 6-03 tablet by ity of (WELLBUTRIN 00:00: mouth 2 [place] SR) 100 mg 00 (two) Medical SR tablet times Branch daily. calcium 2-0 Yes [id number] 500mg Take 1 Uni vers carbonate 6-03 tablet by ity o f (CALCIUM 00:00: mouth [place] 500) 500 mg 00 daily. Medica l calcium Branch (1,250 mg) tablet buPROPion 2021-0 Yes [id number] 100mg Take 1 [facility] SR 6-03 tablet by ity of (WELLBUTRIN 00:00: mouth 2 [place] SR) 100 mg 00 (two) Medical SR tablet times Branch daily. calcium 2021-0 Yes [id number] 500mg Take 1 Uni vers carbonate 6-03 tablet by ity o f (CALCIUM 00:00: mouth [place] 500) 500 mg 00 daily. Medica l calcium Branch (1,250 mg) tablet buPROPion 2021-0 Yes [id number] 100mg Take 1 [facility] SR 6-03 tablet by ity of (WELLBUTRIN 00:00: mouth 2 [place] SR) 100 mg 00 (two) Medical SR tablet times Branch daily. calcium 2021-0 Yes [id number] 500mg Take 1 Uni vers carbonate 6-03 tablet by ity o f (CALCIUM 00:00: mouth [place] 500) 500 mg 00 daily. Medica l calcium Branch (1,250 mg) tablet buPROPion 2021-0 Yes [id number] 100mg Take 1 [facility] SR 6-03 tablet by ity of (WELLBUTRIN 00:00: mouth 2 [place] SR) 100 mg 00 (two) Medical SR tablet times Branch daily. calcium 2-0 Yes [id number] 500mg Take 1 Uni vers carbonate 6-03 tablet by ity o f (CALCIUM 00:00: mouth [place] 500) 500 mg 00 daily. Medica l calcium Branch (1,250 mg) tablet calcium 2022-0 Yes [id number] 500mg Take 1 Uni vers carbonate 6-03 tablet by ity o f (CALCIUM 00:00: mouth [place] 500) 500 mg 00 daily. Medica l calcium Branch (1,250 mg) tablet calcium 2022-0 Yes [id number] 500mg Take 1 Uni vers carbonate 6-03 tablet by ity o f (CALCIUM 00:00: mouth [place] 500) 500 mg 00 daily. Medica l calcium Branch (1,250 mg) tablet calcium 2022-0 Yes [id number] 500mg Take 1 Uni vers carbonate 6-03 tablet by ity o f (CALCIUM 00:00: mouth [place] 500) 500 mg 00 daily. Medica l calcium Branch (1,250 mg) tablet calcium 2-0 Yes [id number] 500mg Take 1 Uni vers carbonate 6-03 tablet by ity o f (CALCIUM 00:00: mouth [place] 500) 500 mg 00 daily. Medica l calcium Branch (1,250 mg) tablet calcium 2022-0 Yes [id number] 500mg Take 1 Uni vers carbonate 6-03 tablet by ity o f (CALCIUM 00:00: mouth [place] 500) 500 mg 00 daily. Medica l calcium Branch (1,250 mg) tablet calcium 2-0 Yes [id number] 500mg Take 1 Uni vers carbonate 6-03 tablet by ity o f (CALCIUM 00:00: mouth [place] 500) 500 mg 00 daily. Medica l calcium Branch (1,250 mg) tablet calcium 2021-0 Yes [id number] 500mg Take 1 Uni vers carbonate 6-03 tablet by ity o f (CALCIUM 00:00: mouth [place] 500) 500 mg 00 daily. Medica l calcium Branch (1,250 mg) tablet calcium 2-0 Yes [id number] 500mg Take 1 Uni vers carbonate 6-03 tablet by ity o f (CALCIUM 00:00: mouth [place] 500) 500 mg 00 daily. Medica l calcium Branch (1,250 mg) tablet calcium 2022-0 Yes [id number] 500mg Take 1 Uni vers carbonate 6-03 tablet by ity o f (CALCIUM 00:00: mouth [place] 500) 500 mg 00 daily. Medica l calcium Branch (1,250 mg) tablet calcium 2-0 Yes [id number] 500mg Take 1 Uni vers carbonate 6-03 tablet by ity o f (CALCIUM 00:00: mouth [place] 500) 500 mg 00 daily. Medica l calcium Branch (1,250 mg) tablet calcium 2022-0 Yes [id number] 500mg Take 1 Uni vers carbonate 6-03 tablet by ity o f (CALCIUM 00:00: mouth [place] 500) 500 mg 00 daily. Medica l calcium Branch (1,250 mg) tablet calcium 2022-0 Yes [id number] 500mg Take 1 [facility] vers carbonate 6-03 tablet by ity o f (CALCIUM 00:00: mouth [place] 500) 500 mg 00 daily. Medica l calcium Branch (1,250 mg) tablet calcium Yes [id number] 500mg Take 1 Uni vers carbonate 6-03 tablet by ity o f (CALCIUM 00:00: mouth [place] 500) 500 mg 00 daily. Medica l calcium Branch (1,250 mg) tablet calcium Yes [id number] 500mg Take 1 Uni vers carbonate 6-03 tablet by ity o f (CALCIUM 00:00: mouth [place] 500) 500 mg 00 daily. Medica l calcium Branch (1,250 mg) tablet calcium Yes [id number] 500mg Take 1 Uni vers carbonate 6-03 tablet by ity o f (CALCIUM 00:00: mouth [place] 500) 500 mg 00 daily. Medica l calcium Branch (1,250 mg) tablet calcium Yes [id number] 500mg Take 1 Uni vers carbonate 6-03 tablet by ity o f (CALCIUM 00:00: mouth [place] 500) 500 mg 00 daily. Medica l calcium Branch (1,250 mg) tablet calcium Yes [id number] 500mg Take 1 Uni vers carbonate 6-03 tablet by ity o f (CALCIUM 00:00: mouth [place] 500) 500 mg 00 daily. Medica l calcium Branch (1,250 mg) tablet calcium Yes [id number] 500mg Take 1 Uni vers carbonate 6-03 tablet by ity o f (CALCIUM 00:00: mouth [place] 500) 500 mg 00 daily. Medica l calcium Branch (1,250 mg) tablet buPROPion 2021- No [id number] 100mg Take 1 [facility] SR 07-31 12-20 tablet by ity of (WELLBUTRIN 00:00: 00:00 [place] 2 [place] 100 mg 00 :00 (two) Medical SR tablet times Branch daily. ergocalcife 2021- No [id number] Take 1 Univers rol, 07-31 capsule by ity of vitamin d2, 00:00: [place] 1,250 [place]cg 00 :00 weekly. Medical (50,000 Branch unit) capsule FLUoxetine 2021- No [id number] 10mg Take 1 [facility] 10 mg 6-03 09-19 capsule by ity of capsule 00:00: 00:00 mouth [place] 00 :00 daily. Medical Branch amiodarone 2022-0 Yes 200mg Take 200 [place] 200 mg 5-09 mg by ity of tablet 00:00: mouth [place] 00 daily. Medical Branch furosemide 2022-0 Yes 40mg Take 40 mg U nivers 40 mg 5-09 by mouth ity of tablet 00:00: daily. Medical Branch lisinopriL 2022-0 Yes 10mg Take 10 mg U nivers 10 mg 5-09 by mouth ity of tablet 00:00: daily. Medical Branch amiodarone 2022-0 Yes 200mg Take 200 [place] 200 mg 5-09 mg by ity of tablet 00:00: mouth [place] 00 daily. Medical Branch furosemide 2022-0 Yes 40mg Take 40 mg U nivers 40 mg 5-09 by mouth ity of tablet 00:00: daily. Medical Branch lisinopriL 2022-0 Yes 10mg Take 10 mg U nivers 10 mg 5-09 by mouth ity of tablet 00:00: daily. Medical Branch amiodarone 2022-0 Yes 200mg Take 200 [place] 200 mg 5-09 mg by ity of tablet 00:00: mouth 00 daily. Medical Branch furosemide 2022-0 Yes 40mg Take 40 mg U nivers 40 mg 5-09 by mouth ity of tablet 00:00: daily. Medical Branch lisinopriL 2022-0 Yes 10mg Take 10 mg U nivers 10 mg 5-09 by mouth ity of tablet 00:00: daily. Medical Branch amiodarone 2022-0 Yes 200mg Take 200 [place] 200 mg 5-09 mg by ity of tablet 00:00: mouth 00 daily. Medical Branch lisinopriL 2022-0 Yes 10mg Take 10 mg U nivers 10 mg 5-09 by mouth ity of tablet 00:00: daily. Medical Branch amiodarone 2022-0 Yes 200mg Take 200 [place] 200 mg 5-09 mg by ity of tablet 00:00: mouth [place] 00 daily. Medical Branch lisinopriL 2022-0 Yes 10mg Take 10 mg U nivers 10 mg 5-09 by mouth ity of tablet 00:00: daily. Medical Branch amiodarone 2022-0 Yes 200mg Take 200 [place] 200 mg 5-09 mg by ity of tablet 00:00: mouth daily. Medical Branch lisinopriL 2022-0 Yes 10mg Take 10 mg U nivers 10 mg 5-09 by mouth ity of tablet 00:00: daily. Medical Branch amiodarone 2022-0 Yes 200mg Take 200 [place] 200 mg 5-09 mg by ity of tablet 00:00: mouth daily. Medical Branch lisinopriL 2022-0 Yes 10mg Take 10 mg U nivers 10 mg 5-09 by mouth ity of tablet 00:00: daily. Medical Branch amiodarone 2-0 Yes 200mg Take 200 [place] 200 mg 5-09 mg by ity of tablet 00:00: mouth daily. Medical Branch lisinopriL 2-0 Yes 10mg Take 10 mg U nivers 10 mg 5-09 by mouth ity of tablet 00:00: daily. Medical Branch amiodarone 2-0 Yes 200mg Take 200 [place] 200 mg 5-09 mg by ity of tablet 00:00: mouth daily. Medical Branch lisinopriL 2-0 Yes 10mg Take 10 mg U nivers 10 mg 5-09 by mouth ity of tablet 00:00: daily. Medical Branch amiodarone 2-0 Yes 200mg Take 200 [place] 200 mg 5-09 mg by ity of tablet 00:00: mouth [place] daily. Medical Branch lisinopriL 2022-0 Yes 10mg Take 10 mg U nivers 10 mg 5-09 by mouth ity of tablet 00:00: daily. Medical Branch amiodarone 2-0 Yes 200mg Take 200 [place] 200 mg 5-09 mg by ity of tablet 00:00: mouth [place] daily. Medical Branch lisinopriL 2022-0 Yes 10mg Take 10 mg U nivers 10 mg 5-09 by mouth ity of tablet 00:00: daily. Medical Branch amiodarone 2022-0 2022- No 200mg Take 200 U nivers 200 mg 5-09 10-18 mg by ity of tablet 00:00: 00:00 mouth [place] 00 :00 daily. Medical Branch lisinopriL 2-0 2- No 10mg Take 10 mg [facility] 10 mg 07-06 by mouth ity of tablet 00:00: 00:00 daily. [place] 00 :00 [facility] Branch amiodarone 2021-0 2- No 200mg Take 200 U nivers 200 mg 07-0618 mg by ity of tablet 00:00: 00:00 mouth [place] 00 :00 daily. Medical Branch lisinopriL 2-0 2- No 10mg Take 10 mg [facility] 10 mg 07-06 by mouth ity of tablet 00:00: 00:00 daily. [place] 00 :00 Medical Branch furosemide 2021-0 2- No 40mg Take 40 mg [facility] 40 mg 07-06 by mouth ity of tablet 00:00: 00:00 daily. [place] 00 :00 Medical Branch diltiazem 2021-0 Yes 240mg Take 240 Uni vers 240 mg 24 4-08 mg by ity of hr capsule 00:00: mouth 00 daily. Medical Branch KCL 20 mEq 2021-0 Yes TAKE 1 Unive rs tablet 4-08 TABLET BY ity of 00:00: MOUTH ONCE DAILY WITH Medical FOOD Branch diltiazem 2021-0 Yes 240mg Take 240 Uni vers 240 mg 24 4-08 mg by ity of hr capsule 00:00: mouth daily. Medical Branch KCL 20 mEq 2021-0 Yes TAKE 1 Unive rs tablet 4-08 TABLET BY ity of 00:00: MOUTH ONCE DAILY WITH Medical FOOD Branch diltiazem 2021-0 Yes 240mg Take 240 Uni vers 240 mg 24 4-08 mg by ity of hr capsule 00:00: mouth daily. Medical Branch KCL 20 mEq 2-0 Yes TAKE 1 Unive rs tablet 4-08 TABLET BY ity of 00:00: MOUTH ONCE DAILY WITH Medical FOOD Branch diltiazem 2021-0 Yes 240mg Take 240 Uni vers 240 mg 24 4-08 mg by ity of hr capsule 00:00: mouth 00 daily. Medical Branch diltiazem 2-0 Yes 240mg Take 240 Uni vers 240 mg 24 4-08 mg by ity of hr capsule 00:00: mouth 00 daily. Medical Branch diltiazem 2021-0 Yes 240mg Take 240 Uni vers 240 mg 24 4-08 mg by ity of hr capsule 00:00: mouth [place] 00 daily. Medical Branch diltiazem 2021-0 Yes 240mg Take 240 Uni vers 240 mg 24 4-08 mg by ity of hr capsule 00:00: mouth [place] 00 daily. Medical Branch diltiazem 2021-0 Yes 240mg Take 240 Uni vers 240 mg 24 4-08 mg by ity of hr capsule 00:00: mouth [place] 00 daily. Medical Branch diltiazem 2021-0 Yes 240mg Take 240 Uni vers 240 mg 24 4-08 mg by ity of hr capsule 00:00: mouth [place] 00 daily. Medical Branch diltiazem 2021-0 Yes 240mg Take 240 Uni vers 240 mg 24 4-08 mg by ity of hr capsule 00:00: mouth [place] 00 daily. Medical Branch diltiazem 2021-0 Yes 240mg Take 240 Uni vers 240 mg 24 4-08 mg by ity of hr capsule 00:00: mouth [place] 00 daily. Medical Branch Pacerone 2021-0 Yes 200mg QD Take 200 [place] 100 MG 4-08 mg by Health tablet 00:00: mouth 1 00 (one) time each day. dilTIAZem 2021-0 Yes 240mg QD Take 240 [facility] CD 4-08 mg by Health (Cardizem 00:00: mouth 1 CD) 240 MG 00 (one) time 24 hr each day. capsule diltiazem 2021-0 2021- No 240mg Take 240 [facility] [place] 240 mg 24 4-08 10-18 mg by ity of hr capsule 00:00: 00:00 mouth [place] 00 :00 daily. Medical Branch diltiazem 2021-0 2021- No 240mg Take 240 [facility] [place] 240 mg 24 4-08 10-18 mg by ity of hr capsule 00:00: 00:00 mouth [place] 00 :00 daily. Medical Branch KCL 20 mEq 2021-0 2021- No TAKE 1 Univ ers tablet - 09-19 TABLET BY ity of 00:00: 00:00 MOUTH ONCE [place] 00 :00 DAILY WITH Medical FOOD Branch budesonide- 2021-0 Yes 2{puff} Inhale 2 Univers formoteroL 4-06 Puffs as ity o f 160-4.5 00:00: needed. [place] mcg/actuati 00 Medical on inhaler Branch albuterol Yes 2{puff} Inhale 2 U nivers 90 4-06 Puffs ity of mcg/actuati 00:00: every 6 Rishab[facility] as on inhaler 00 (six) Medical hours as Branch needed. budesonide- Yes 2{puff} Inhale 2 Univers formoteroL 4-06 Puffs as ity o f 160-4.5 00:00: needed. [place] mcg/actuati 00 Medical on inhaler Branch albuterol Yes 2{puff} Inhale 2 U nivers 90 4-06 Puffs ity of mcg/actuati 00:00: every 6 [place] as on inhaler 00 (six) Medical hours as Branch needed. budesonide- Yes 2{puff} Inhale 2 Univers formoteroL 4-06 Puffs as ity o f 160-4.5 00:00: needed. [place] mcg/actuati Medical on inhaler Branch albuterol Yes 2{puff} Inhale 2 U nivers 90 4-06 Puffs ity of mcg/actuati 00:00: every 6 [place] as on inhaler 00 (six) Medical hours as Branch needed. budesonide- Yes 2{puff} Inhale 2 Univers formoteroL 4-06 Puffs as ity o f 160-4.5 00:00: needed. [place] mcg/actuati Medical on inhaler Branch albuterol Yes 2{puff} Inhale 2 U nivers 90 4-06 Puffs ity of mcg/actuati 00:00: every 6 [place] as on inhaler 00 (six) Medical hours as Branch needed. budesonide- Yes 2{puff} Inhale 2 Univers formoteroL 4-06 Puffs as ity o f 160-4.5 00:00: needed. [place] mcg/actuati 00 Medical on inhaler Branch albuterol Yes 2{puff} Inhale 2 U nivers 90 4-06 Puffs ity of mcg/actuati 00:00: every 6 [place] as on inhaler 00 (six) Medical hours as Branch needed. budesonide- 2022-0 Yes 2{puff} Inhale 2 Univers formoteroL 4-06 Puffs as ity o f 160-4.5 00:00: needed. [place] mcg/actuati Medical on inhaler Branch albuterol Yes 2{puff} Inhale 2 U nivers 90 4-06 Puffs ity of mcg/actuati 00:00: every 6 [place] as on inhaler 00 (six) Medical hours as Branch needed. budesonide- Yes 2{puff} Inhale 2 Univers formoteroL 4-06 Puffs as ity o f 160-4.5 00:00: needed. [place] mcg/actuati Medical on inhaler Branch albuterol Yes 2{puff} Inhale 2 U nivers 90 4-06 Puffs ity of mcg/actuati 00:00: every 6 [place] as on inhaler 00 (six) Medical hours as Branch needed. budesonide- Yes 2{puff} Inhale 2 Univers formoteroL 4-06 Puffs as ity o f 160-4.5 00:00: needed. [place] mcg/actuati Medical on inhaler Branch albuterol Yes 2{puff} Inhale 2 U nivers 90 4-06 Puffs ity of mcg/actuati 00:00: every 6 [place] as on inhaler 00 (six) Medical hours as Branch needed. budesonide- Yes 2{puff} Inhale 2 Univers formoteroL 4-06 Puffs as ity o f 160-4.5 00:00: needed. [place] mcg/actuati Medical on inhaler Branch albuterol Yes 2{puff} Inhale 2 U nivers 90 4-06 Puffs ity of mcg/actuati 00:00: every 6 [place] as on inhaler 00 (six) Medical hours as Branch needed. albuterol Yes INHALE 2 [place] 108 (90 4-06 PUFFS BY [facility]) 00:00: MOUTH MCG/ACT 00 EVERY 6 inhaler HOURS NEEDED FOR WHEEZING AND FOR SHORTNESS OF BREATH budesonide- 0 Yes 2{puff} Q.5D Inhale 2 [facility] formoterol 4-06 puffs in Healt h (Symbicort) 00:00: the 160-4.5 00 morning MCG/ACT and 2 inhaler puffs before bedtime. metolazone 2013-0 Yes 5mg QD Take 5 mg [facility] (ZAROXOLYN) 8-11 by mouth Heal th 5 mg tablet 09:39: daily Take 54 one by mouth daily 30 minutes before lasix dose . amiodarone 2013-0 Yes 200mg QD Take 200 [facility] (PACERONE) 8-11 mg by Health 100 mg 09:39: mouth tablet 48 daily. potassium 2013-0 Yes Q.5D Take by [facility] chloride 20 8-11 mouth 2 Healt h mEq TbER 09:39: times 42 daily. nitroGLYCER 2013-[address] 0.4 H [facility] IN 8-11 mg under Health (NITROSTAT) 09:39: tongue 0.4 mg 41 every 5 sublingual minutes as tablet needed for Chest pain (total of 3 doses in 15 minutes) Dissolve 1 tablet under the tongue every 5 minutes as needed, up to 3 times. If chest pain persists, call 911 . metoprolol 2013-0 Yes 50mg Q.5D Take 50 mg [facility] (LOPRESSOR) 8-11 by mouth 2 He alth 50 mg 09:39: times tablet 39 daily Metoprolol tart 50 mg tab leg . furosemide 0 Yes 40mg QD Take 40 mg H [facility] (LASIX) 40 8-11 by mouth Healt h mg tablet 09:39: daily. 34 levETIRAcet 0 Yes 500mg QD Take 500 H [facility] am (KEPPRA) 8-08 mg by Health 500 mg 14:07: mouth tablet 54 daily. levETIRAcet 0 Yes Seizure 500mg Q.5D Take 1 [place] [facility] (KEPPRA) 7-29 tablet by [facility] lt 500 mg 00:00: mouth 2 tablet 00 times daily. levETIRAcet 2013-0 Yes Seizure 500mg Q.5D Take 1 [place] (KEPPRA) 7-29 tablet by [facility] lt 500 mg 00:00: mouth 2 tablet 00 times daily. Immunizations Ordered Filled Immunization Date Status Comments [facility] e Immunization Name Name Influenza Virus 2022-01-12 Completed Universit y of Vaccine 00:00:00 [facility] Influenza Virus 2022-01-12 Completed Universit y of Vaccine 00:00:00 [facility] Influenza Virus 2022-01-12 Completed Universit y of Vaccine 00:00:00 [facility] Influenza Virus 2022-01-12 Completed Universit y of Vaccine 00:00:00 [facility] Influenza Virus 2022-01-12 Completed Universit y of Vaccine 00:00:00 [facility] Influenza Virus 2022-01-12 Completed Universit y of Vaccine 00:00:00 [facility] Influenza Virus 2022-01-12 Completed Universit y of Vaccine 00:00:00 [facility] Influenza Virus 2022-01-12 Completed Universit y of Vaccine 00:00:00 [facility] Influenza Virus 2022-01-12 Completed Universit y of Vaccine 00:00:00 [facility] Influenza Virus 2022-01-12 Completed Universit y of Vaccine 00:00:00 [facility] Influenza Virus 2022-01-12 Completed Universit y of Vaccine 00:00:00 [facility] Influenza Virus 2022-01-12 Completed Universit y of Vaccine 00:00:00 [facility] Influenza Virus 2022-01-12 Completed Universit y of Vaccine 00:00:00 [facility] Influenza Virus 2022-01-12 Completed Universit y of Vaccine 00:00:00 [facility] Influenza Virus 2022-01-12 Completed Universit y of Vaccine 00:00:00 [facility] Influenza Virus 2022-01-12 Completed Universit y of Vaccine 00:00:00 [facility] Influenza Virus 2022-01-12 Completed Universit y of Vaccine 00:00:00 [facility] Influenza Virus 2022-01-12 Completed Universit y of Vaccine 00:00:00 [facility] Influenza Virus 2022-01-12 Completed Universit y of Vaccine 00:00:00 [facility] Influenza Virus 2021-12-15 Completed Universit y of Vaccine Quad IM, 00:00:00 [place] [facility] d[facility] Preserv and ABX Branch Free 6 MO-64 YRS Influenza Virus 2021-12-15 Completed Universit y of Vaccine [facility] IM, 00:00:00 [place] Me dical Preserv and ABX Branch Free 6 MO-64 YRS Influenza Virus 2021-12-15 Completed Universit y of Vaccine [facility] IM, 00:00:00 [place] Me dical Preserv and ABX Branch Free 6 MO-64 YRS Influenza Virus 2021-12-15 Completed Universit y of Vaccine [facility] IM, 00:00:00 [place] Me dical Preserv and ABX Branch Free 6 MO-64 YRS Influenza Virus 2021-12-15 Completed Universit y of Vaccine [facility] IM, 00:00:00 [place] Me dical Preserv and ABX Branch Free 6 MO-64 YRS Influenza Virus 2021-12-15 Completed Universit y of Vaccine [facility] IM, 00:00:00 [place] Me dical Preserv and ABX Branch Free 6 MO-64 YRS Influenza Virus 2021-12-15 Completed Universit y of Vaccine [facility] IM, 00:00:00 [place] Me dical Preserv and ABX Branch Free 6 MO-64 YRS Influenza Virus 2021-12-15 Completed Universit y of Vaccine [facility] IM, 00:00:00 [place] Me dical Preserv and ABX Branch Free 6 MO-64 YRS Influenza Virus 2021-12-15 Completed Universit y of Vaccine [facility] IM, 00:00:00 [place] Me dical Preserv and ABX Branch Free 6 MO-64 YRS Influenza Virus 2021-12-15 Completed Universit y of Vaccine [facility] IM, 00:00:00 [place] Me dical Preserv and ABX Branch Free 6 MO-64 YRS Influenza Virus 2021-12-15 Completed Universit y of Vaccine [facility] IM, 00:00:00 [place] Me dical Preserv and ABX Branch Free 6 MO-64 YRS Influenza Virus 2021-12-15 Completed Universit y of Vaccine [facility] IM, 00:00:00 [place] Me dical Preserv and ABX Branch Free 6 MO-64 YRS Influenza Virus 2021-12-15 Completed Universit y of Vaccine Quad IM, 00:00:00 [place] Me dical Preserv and ABX Branch Free 6 MO-64 YRS Influenza Virus 2021-12-15 Completed Universit y of Vaccine Quad IM, 00:00:00 [place] Me dical Preserv and ABX Branch Free 6 MO-64 YRS Influenza Virus 2021-12-15 Completed Universit y of Vaccine Quad IM, 00:00:00 [place] Me dical Preserv and ABX Branch Free 6 MO-64 YRS Influenza Virus 2021-12-15 Completed Universit y of Vaccine Quad IM, 00:00:00 [place] Me dical Preserv and ABX Branch Free 6 MO-64 YRS Influenza Virus 2021-12-15 Completed Universit y of Vaccine [facility] IM, 00:00:00 [place] Me dical Preserv and ABX Branch Free 6 MO-64 YRS Influenza Virus 2021-12-15 Completed Universit y of Vaccine Quad IM, 00:00:00 [place] Me dical Preserv and ABX Branch Free 6 MO-64 YRS Influenza Virus 2021-12-15 Completed Universit y of Vaccine Quad IM, 00:00:00 [place] Me dical Preserv and ABX Branch Free 6 MO-64 YRS Influenza Virus 2021-12-15 Completed Universit y of Vaccine [facility] IM, 00:00:00 [place] Me dical Preserv and ABX Branch Free 6 MO-64 YRS Influenza Virus 2021-12-15 Completed Universit y of Vaccine [facility] IM, 00:00:00 [place] Me dical Preserv and ABX Branch Free 6 MO-64 YRS Influenza Virus 2021-12-15 Completed Universit y of Vaccine [facility] IM, 00:00:00 [place] Me dical Preserv and ABX Branch Free 6 MO-64 YRS Influenza Virus 2021-12-15 Completed Universit y of Vaccine Quad IM, 00:00:00 [place] Me dical Preserv and ABX Branch Free 6 MO-64 YRS Influenza Virus 2021-12-15 Completed Universit y of Vaccine [facility] IM, 00:00:00 [place] Me dical Preserv and ABX Branch Free 6 MO-64 YRS Influenza Virus 2021-12-15 Completed Universit y of Vaccine [facility] IM, 00:00:00 [place] Me dical Preserv and ABX Branch Free 6 MO-64 YRS Influenza Virus 2021-12-15 Completed Universit y of Vaccine [facility], 00:00:00 [place] Me dical Preserv and ABX Branch Free 6 MO-64 YRS Influenza Virus 2021-12-15 Completed Universit y of Vaccine [facility] IM, 00:00:00 [place] Me dical Preserv and ABX Branch Free 6 MO-64 YRS Influenza Virus 2021-12-15 Completed Universit y of Vaccine [facility] IM, 00:00:00 [place] Me dical Preserv and ABX Branch Free 6 MO-64 YRS SARS-COV-2 COVID-19 2020-06-05 Completed Unive rsity of PFIZER VACCINE 00:00:00 [place] [facility] SARS-COV-2 COVID-19 2020-06-05 Completed Unive rsity of PFIZER VACCINE 00:00:00 [facility] Branch SARS-COV-2 COVID-19 2020-06-05 Completed Unive rsity of PFIZER VACCINE 00:00:00 [place] [facility] Branch SARS-COV-2 COVID-19 2020-06-05 Completed Unive rsity of PFIZER VACCINE 00:00:00 [facility] Branch SARS-COV-2 COVID-19 2020-06-05 Completed Unive rsity of PFIZER VACCINE 00:00:00 [facility] Branch SARS-COV-2 COVID-19 2020-06-05 Completed Unive rsity of PFIZER VACCINE 00:00:00 [facility] Branch SARS-COV-2 COVID-19 2020-06-05 Completed Unive rsity of PFIZER VACCINE 00:00:00 [facility] Branch SARS-COV-2 COVID-19 2020-06-05 Completed Unive rsity of PFIZER VACCINE 00:00:00 [facility] Branch SARS-COV-2 COVID-19 2020-06-05 Completed Unive rsity of PFIZER VACCINE 00:00:00 [facility] Branch SARS-COV-2 COVID-19 2020-06-05 Completed Unive rsity of PFIZER VACCINE 00:00:00 [facility] Branch SARS-COV-2 COVID-19 2020-06-05 Completed Unive rsity of PFIZER VACCINE 00:00:00 [facility] Branch SARS-COV-2 COVID-19 2020-06-05 Completed Unive rsity of PFIZER VACCINE 00:00:00 [facility] Branch SARS-COV-2 COVID-19 2020-06-05 Completed Unive rsity of PFIZER VACCINE 00:00:00 [facility] Branch SARS-COV-2 COVID-19 2020-06-05 Completed Unive rsity of PFIZER VACCINE 00:00:00 [facility] Branch SARS-COV-2 COVID-19 2020-06-05 Completed Unive rsity of PFIZER VACCINE 00:00:00 [facility] Branch SARS-COV-2 COVID-19 2020-06-05 Completed Unive rsity of PFIZER VACCINE 00:00:00 [facility] Branch SARS-COV-2 COVID-19 2020-06-05 Completed Unive rsity of PFIZER VACCINE 00:00:00 [facility] Branch SARS-COV-2 COVID-19 2020-06-05 Completed Unive rsity of PFIZER VACCINE 00:00:00 [facility] SARS-COV-2 COVID-19 2020-06-05 Completed Unive rsity of PFIZER VACCINE 00:00:00 [facility] Branch SARS-COV-2 COVID-19 2020-06-05 Completed Unive rsity of PFIZER VACCINE 00:00:00 [facility] SARS-COV-2 COVID-19 2020-06-05 Completed Unive rsity of PFIZER VACCINE 00:00:00 [facility] Branch SARS-COV-2 COVID-19 2020-06-05 Completed Unive rsity of PFIZER VACCINE 00:00:00 [facility] Branch SARS-COV-2 COVID-19 2020-06-05 Completed Unive rsity of PFIZER VACCINE 00:00:00 [facility] SARS-COV-2 COVID-19 2020-06-05 Completed Unive rsity of PFIZER VACCINE 00:00:00 [facility] Branch SARS-COV-2 COVID-19 2020-06-05 Completed Unive rsity of PFIZER VACCINE 00:00:00 [facility] SARS-COV-2 COVID-19 2020-06-05 Completed Unive rsity of PFIZER VACCINE 00:00:00 [facility] SARS-COV-2 COVID-19 2020-06-05 Completed Unive rsity of PFIZER VACCINE 00:00:00 [facility] SARS-COV-2 COVID-19 2020-06-05 Completed Unive rsity of PFIZER VACCINE 00:00:00 [facility] SARS-COV-2 COVID-19 2020-06-05 Completed Unive rsity of PFIZER VACCINE 00:00:00 [facility] SARS-COV-2 COVID-19 2020-06-05 Completed Unive rsity of PFIZER VACCINE 00:00:00 [facility] SARS-COV-2 COVID-19 2020-06-05 Completed Unive rsity of PFIZER VACCINE 00:00:00 [facility] SARS-COV-2 COVID-19 2020-06-05 Completed Unive rsity of PFIZER VACCINE 00:00:00 [facility] SARS-COV-2 COVID-19 2020-06-05 Completed Unive rsity of PFIZER VACCINE 00:00:00 [facility] Branch SARS-COV-2 COVID-19 2020-06-05 Completed Unive rsity of PFIZER VACCINE 00:00:00 [facility] Branch SARS-COV-2 COVID-19 2020-06-05 Completed Unive rsity of PFIZER VACCINE 00:00:00 [facility] Branch SARS-COV-2 COVID-19 2020-06-05 Completed Unive rsity of PFIZER VACCINE 00:00:00 [facility] Branch SARS-COV-2 COVID-19 2020-06-05 Completed Unive rsity of PFIZER VACCINE 00:00:00 [facility] Branch SARS-COV-2 COVID-19 2020-06-05 Completed Unive rsity of PFIZER VACCINE 00:00:00 [facility] SARS-COV-2 COVID-19 2020-05-14 Completed Unive rsity of PFIZER VACCINE 00:00:00 [facility] SARS-COV-2 COVID-19 2020-05-14 Completed Unive rsity of PFIZER VACCINE 00:00:00 [facility] SARS-COV-2 COVID-19 2020-05-14 Completed Unive rsity of PFIZER VACCINE 00:00:00 [facility] SARS-COV-2 COVID-19 2020-05-14 Completed Unive rsity of PFIZER VACCINE 00:00:00 [facility] SARS-COV-2 COVID-19 2020-05-14 Completed Unive rsity of PFIZER VACCINE 00:00:00 [facility] SARS-COV-2 COVID-19 2020-05-14 Completed Unive rsity of PFIZER VACCINE 00:00:00 [facility] SARS-COV-2 COVID-19 2020-05-14 Completed Unive rsity of PFIZER VACCINE 00:00:00 [facility] SARS-COV-2 COVID-19 2020-05-14 Completed Unive rsity of PFIZER VACCINE 00:00:00 [facility] SARS-COV-2 COVID-19 2020-05-14 Completed Unive rsity of PFIZER VACCINE 00:00:00 [facility] SARS-COV-2 COVID-19 2020-05-14 Completed Unive rsity of PFIZER VACCINE 00:00:00 [facility] SARS-COV-2 COVID-19 2020-05-14 Completed Unive rsity of PFIZER VACCINE 00:00:00 [facility] SARS-COV-2 COVID-19 2020-05-14 Completed Unive rsity of PFIZER VACCINE 00:00:00 [place] [facility] Branch SARS-COV-2 COVID-19 2020-05-14 Completed Unive rsity of PFIZER VACCINE 00:00:00 [facility] SARS-COV-2 COVID-19 2020-05-14 Completed Unive rsity of PFIZER VACCINE 00:00:00 [place] [facility] Branch SARS-COV-2 COVID-19 2020-05-14 Completed Unive rsity of PFIZER VACCINE 00:00:00 [facility] SARS-COV-2 COVID-19 2020-05-14 Completed Unive rsity of PFIZER VACCINE 00:00:00 [facility] SARS-COV-2 COVID-19 2020-05-14 Completed Unive rsity of PFIZER VACCINE 00:00:00 [facility] SARS-COV-2 COVID-19 2020-05-14 Completed Unive rsity of PFIZER VACCINE 00:00:00 [facility] SARS-COV-2 COVID-19 2020-05-14 Completed Unive rsity of PFIZER VACCINE 00:00:00 [facility] SARS-COV-2 COVID-19 2020-05-14 Completed [facility] PFIZER VACCINE 00:00:00 [facility] SARS-COV-2 COVID-19 2020-05-14 Completed [facility] PFIZER VACCINE 00:00:00 [facility] SARS-COV-2 COVID-19 2020-05-14 Completed [facility] PFIZER VACCINE 00:00:00 [facility] SARS-COV-2 COVID-19 2020-05-14 Completed [facility] PFIZER VACCINE 00:00:00 [facility] SARS-COV-2 COVID-19 2020-05-14 Completed [facility] PFIZER VACCINE 00:00:00 [facility] SARS-COV-2 COVID-19 2020-05-14 Completed [facility] PFIZER VACCINE 00:00:00 [facility] SARS-COV-2 COVID-19 2020-05-14 Completed [facility] PFIZER VACCINE 00:00:00 [facility] SARS-COV-2 COVID-19 2020-05-14 Completed [facility] PFIZER VACCINE 00:00:00 [facility] SARS-COV-2 COVID-19 2020-05-14 Completed [facility] PFIZER VACCINE 00:00:00 [facility] SARS-COV-2 COVID-19 2020-05-14 Completed [facility] of PFIZER VACCINE 00:00:00 [facility] SARS-COV-2 COVID-19 2020-05-14 Completed [facility] of PFIZER VACCINE 00:00:00 [facility] SARS-COV-2 COVID-19 2020-05-14 Completed [facility] PFIZER VACCINE 00:00:00 [facility] SARS-COV-2 COVID-19 2020-05-14 Completed [facility] PFIZER VACCINE 00:00:00 [facility] SARS-COV-2 COVID-19 2020-05-14 Completed [facility] PFIZER VACCINE 00:00:00 [facility] SARS-COV-2 COVID-19 2020-05-14 Completed [facility] PFIZER VACCINE 00:00:00 [facility] SARS-COV-2 COVID-19 2020-05-14 Completed [facility] PFIZER VACCINE 00:00:00 [facility] SARS-COV-2 COVID-19 2020-05-14 Completed [facility] PFIZER VACCINE 00:00:00 [facility] SARS-COV-2 COVID-19 2020-05-14 Completed [facility] PFIZER VACCINE 00:00:00 [facility] SARS-COV-2 COVID-19 2020-05-14 Completed [facility] PFIZER VACCINE 00:00:00 [facility] Influenza Virus 2019-11-20 Completed [facility] Vaccine Quad .5 mL 00:00:00 [facility] Influenza Virus 2019-11-20 Completed [facility] Vaccine Quad .5 mL 00:00:00 [facility] Influenza Virus 2019-11-20 Completed [facility] Vaccine Quad .5 mL 00:00:00 [facility] Influenza Virus 2019-11-20 Completed [facility] Vaccine Quad .5 mL 00:00:00 [facility] Influenza Virus 2019-11-20 Completed [facility] Vaccine Quad .5 mL 00:00:00 [facility] Influenza Virus 2019-11-20 Completed [facility] Vaccine Quad .5 mL 00:00:00 [facility] Influenza Virus 2019-11-20 Completed [facility] Vaccine Quad .5 mL 00:00:00 [facility] Influenza Virus 2019-11-20 Completed [facility] Vaccine Quad .5 mL 00:00:00 [facility] Influenza Virus 2019-11-20 Completed [facility] Vaccine Quad .5 mL 00:00:00 [facility] Influenza Virus 2019-11-20 Completed [facility] Vaccine Quad .5 mL 00:00:00 [facility] Influenza Virus 2019-11-20 Completed [facility] Vaccine Quad .5 mL 00:00:00 [facility] Influenza Virus 2019-11-20 Completed [facility] Vaccine Quad .5 mL 00:00:00 [facility] Influenza Virus 2019-11-20 Completed [facility] Vaccine Quad .5 mL 00:00:00 [facility] Influenza Virus 2019-11-20 Completed [facility] Vaccine Quad .5 mL 00:00:00 [facility] Influenza Virus 2019-11-20 Completed [facility] Vaccine Quad .5 mL 00:00:00 [facility] Influenza Virus 2019-11-20 Completed [facility] Vaccine Quad .5 mL 00:00:00 [facility] Influenza Virus 2019-11-20 Completed [facility] Vaccine Quad .5 mL 00:00:00 [facility] Influenza Virus 2019-11-20 Completed [facility] Vaccine Quad .5 mL 00:00:00 [facility] Influenza Virus 2019-11-20 Completed [facility] Vaccine Quad .5 mL 00:00:00 [facility] Influenza Virus 2019-11-20 Completed [facility] Vaccine Quad .5 mL 00:00:00 [facility] Influenza Virus 2019-11-20 Completed [facility] Vaccine Quad .5 mL 00:00:00 [facility] Influenza Virus 2019-11-20 Completed [facility] Vaccine Quad .5 mL 00:00:00 [facility] Influenza Virus 2019-11-20 Completed [facility] Vaccine Quad .5 mL 00:00:00 [facility] Influenza Virus 2019-11-20 Completed [facility] Vaccine Quad .5 mL 00:00:00 [facility] Influenza Virus 2019-11-20 Completed [facility] Vaccine Quad .5 mL 00:00:00 [facility] Influenza Virus 2019-11-20 Completed [facility] Vaccine Quad .5 mL 00:00:00 [facility] Influenza Virus 2019-11-20 Completed [facility] Vaccine Quad .5 mL 00:00:00 [facility] Influenza Virus 2019-11-20 Completed [facility] Vaccine Quad .5 mL 00:00:00 [facility] Influenza Virus 2019-11-20 Completed [facility] Vaccine Quad .5 mL 00:00:00 [facility] Influenza Virus 2019-11-20 Completed [facility] Vaccine Quad .5 mL 00:00:00 [facility] Influenza Virus 2019-11-20 Completed [facility] Vaccine Quad .5 mL 00:00:00 [facility] Influenza Virus 2019-11-20 Completed [facility] Vaccine Quad .5 mL 00:00:00 [facility] Influenza Virus 2019-11-20 Completed [facility] Vaccine Quad .5 mL 00:00:00 [facility] Influenza Virus 2019-11-20 Completed [facility] Vaccine Quad .5 mL 00:00:00 [facility] Influenza Virus 2019-11-20 Completed [facility] Vaccine Quad .5 mL 00:00:00 [facility] Influenza Virus 2019-11-20 Completed [facility] Vaccine Quad .5 mL 00:00:00 [facility] Influenza Virus 2019-11-20 Completed [facility] Vaccine Quad .5 mL 00:00:00 [facility] Influenza Virus 2019-11-20 Completed [facility] Vaccine Quad .5 mL 00:00:00 [facility] Influenza Virus 2018-12-27 Completed [facility] Vaccine 00:00:00 [facility] Influenza Virus 2018-12-27 Completed [facility] Vaccine Quad .5 mL 00:00:00 [facility] Influenza Virus 2018-12-27 Completed [facility] Vaccine 00:00:00 [facility] Influenza Virus 2018-12-27 Completed [facility] Vaccine Quad .5 mL 00:00:00 [facility] Influenza Virus 2018-12-27 Completed [facility] Vaccine 00:00:00 [facility] Influenza Virus 2018-12-27 Completed [facility] Vaccine Quad .5 mL 00:00:00 [facility] Influenza Virus 2018-12-27 Completed [facility] Vaccine 00:00:00 [facility] Influenza Virus 2018-12-27 Completed [facility] Vaccine Quad .5 mL 00:00:00 [facility] Influenza Virus 2018-12-27 Completed [facility] Vaccine 00:00:00 [facility] Influenza Virus 2018-12-27 Completed [facility] Vaccine Quad .5 mL 00:00:00 [facility] Influenza Virus 2018-12-27 Completed [facility] Vaccine 00:00:00 [facility] Influenza Virus 2018-12-27 Completed [facility] Vaccine Quad .5 mL 00:00:00 [facility] Influenza Virus 2018-12-27 Completed [facility] Vaccine 00:00:00 [facility] Influenza Virus 2018-12-27 Completed [facility] Vaccine Quad .5 mL 00:00:00 [facility] Influenza Virus 2018-12-27 Completed [facility] Vaccine 00:00:00 [facility] Influenza Virus 2018-12-27 Completed [facility] Vaccine Quad .5 mL 00:00:00 [facility] Influenza Virus 2018-12-27 Completed [facility] Vaccine 00:00:00 [facility] Influenza Virus 2018-12-27 Completed [facility] Vaccine Quad .5 mL 00:00:00 [facility] Influenza Virus 2018-12-27 Completed [facility] Vaccine 00:00:00 [facility] Influenza Virus 2018-12-27 Completed [facility] Vaccine Quad .5 mL 00:00:00 [facility] Influenza Virus 2018-12-27 Completed [facility] Vaccine 00:00:00 [facility] Influenza Virus 2018-12-27 Completed [facility] Vaccine Quad .5 mL 00:00:00 [facility] Influenza Virus 2018-12-27 Completed [facility] Vaccine 00:00:00 [facility] Influenza Virus 2018-12-27 Completed [facility] Vaccine Quad .5 mL 00:00:00 [facility] Influenza Virus 2018-12-27 Completed [facility] Vaccine 00:00:00 [facility] Influenza Virus 2018-12-27 Completed [facility] Vaccine Quad .5 mL 00:00:00 [facility] Influenza Virus 2018-12-27 Completed [facility] Vaccine 00:00:00 [facility] Influenza Virus 2018-12-27 Completed [facility] Vaccine Quad .5 mL 00:00:00 [facility] Influenza Virus 2018-12-27 Completed [facility] Vaccine 00:00:00 [facility] Influenza Virus 2018-12-27 Completed [facility] Vaccine Quad .5 mL 00:00:00 [facility] Influenza Virus 2018-12-27 Completed [facility] Vaccine 00:00:00 [facility] Influenza Virus 2018-12-27 Completed [facility] Vaccine Quad .5 mL 00:00:00 [facility] Influenza Virus 2018-12-27 Completed [facility] Vaccine 00:00:00 [facility] Influenza Virus 2018-12-27 Completed [facility] Vaccine Quad .5 mL 00:00:00 [facility] Influenza Virus 2018-12-27 Completed [facility] Vaccine 00:00:00 [facility] Influenza Virus 2018-12-27 Completed [facility] Vaccine Quad .5 mL 00:00:00 [facility] Influenza Virus 2018-12-27 Completed [facility] Vaccine 00:00:00 [facility] Influenza Virus 2018-12-27 Completed [facility] Vaccine Quad .5 mL 00:00:00 [facility] Influenza Virus 2018-12-27 Completed [facility] Vaccine 00:00:00 [facility] Influenza Virus 2018-12-27 Completed [facility] Vaccine Quad .5 mL 00:00:00 [facility] Influenza Virus 2018-12-27 Completed [facility] Vaccine 00:00:00 [facility] Influenza Virus 2018-12-27 Completed [facility] Vaccine Quad .5 mL 00:00:00 [facility] Influenza Virus 2018-12-27 Completed [facility] Vaccine 00:00:00 [facility] Influenza Virus 2018-12-27 Completed [facility] Vaccine Quad .5 mL 00:00:00 [facility] Influenza Virus 2018-12-27 Completed [facility] Vaccine 00:00:00 [facility] Influenza Virus 2018-12-27 Completed [facility] Vaccine Quad .5 mL 00:00:00 [facility] Influenza Virus 2018-12-27 Completed [facility] Vaccine 00:00:00 [facility] Influenza Virus 2018-12-27 Completed [facility] Vaccine Quad .5 mL 00:00:00 [facility] Influenza Virus 2018-12-27 Completed [facility] Vaccine 00:00:00 [facility] Influenza Virus 2018-12-27 Completed [facility] Vaccine Quad .5 mL 00:00:00 [facility] Influenza Virus 2018-12-27 Completed [facility] Vaccine 00:00:00 [facility] Influenza Virus 2018-12-27 Completed [facility] Vaccine Quad .5 mL 00:00:00 [facility] Influenza Virus 2018-12-27 Completed [facility] Vaccine 00:00:00 [facility] Influenza Virus 2018-12-27 Completed [facility] Vaccine Quad .5 mL 00:00:00 [facility] Influenza Virus 2018-12-27 Completed [facility] Vaccine 00:00:00 [facility] Influenza Virus 2018-12-27 Completed [facility] Vaccine Quad .5 mL 00:00:00 [facility] Influenza Virus 2018-12-27 Completed [facility] Vaccine 00:00:00 [facility] Influenza Virus 2018-12-27 Completed [facility] Vaccine Quad .5 mL 00:00:00 [facility] Influenza Virus 2018-12-27 Completed [facility] Vaccine 00:00:00 [facility] Influenza Virus 2018-12-27 Completed [facility] Vaccine Quad .5 mL 00:00:00 [facility] Influenza Virus 2018-12-27 Completed [facility] Vaccine 00:00:00 [facility] Influenza Virus 2018-12-27 Completed [facility] Vaccine Quad .5 mL 00:00:00 [facility] [place] Influenza Virus 2018-12-27 Completed [facility] Vaccine 00:00:00 [facility] Influenza Virus 2018-12-27 Completed [facility] Vaccine Quad .5 mL 00:00:00 [facility] [place] Influenza Virus 2018-12-27 Completed [facility] Vaccine 00:00:00 [facility] Influenza Virus 2018-12-27 Completed [facility] Vaccine Quad .5 mL 00:00:00 [facility] [place] Influenza Virus 2018-12-27 Completed [facility] Vaccine 00:00:00 [facility] Influenza Virus 2018-12-27 Completed [facility] Vaccine Quad .5 mL 00:00:00 [place] [address] Influenza Virus 2018-12-27 Completed [facility] Vaccine 00:00:00 [facility] Influenza Virus 2018-12-27 Completed [facility] Vaccine Quad .5 mL 00:00:00 [facility] [place] Influenza Virus 2018-12-27 Completed [facility] Vaccine 00:00:00 [facility] Influenza Virus 2018-12-27 Completed [facility] Vaccine Quad .5 mL 00:00:00 [facility] [place] Influenza Virus 2018-12-27 Completed [facility] Vaccine 00:00:00 [facility] Influenza Virus 2018-12-27 Completed [facility] Vaccine Quad .5 mL 00:00:00 [facility] [place] Influenza Virus 2018-12-27 Completed [facility] Vaccine 00:00:00 [facility] Influenza Virus 2018-12-27 Completed [facility] Vaccine Quad .5 mL 00:00:00 [facility] Pneumococcal 2018-08-31 Completed [facility] f Polysaccharide, 00:00:00 [facility] PPSV23 (PNEUMOVAX) [facility] Pneumococcal 2018-08-31 Completed [facility] f Polysaccharide, 00:00:00 [facility] PPSV23 (PNEUMOVAX) [facility] Pneumococcal 2018-08-31 Completed [facility] f Polysaccharide, 00:00:00 [facility] PPSV23 (PNEUMOVAX) [facility] Pneumococcal 2018-08-31 Completed [facility] f Polysaccharide, 00:00:00 [facility] PPSV23 (PNEUMOVAX) [facility] Pneumococcal 2018-08-31 Completed [facility] f Polysaccharide, 00:00:00 [facility] PPSV23 (PNEUMOVAX) [facility] Pneumococcal 2018-08-31 Completed [facility] f Polysaccharide, 00:00:00 [facility] PPSV23 (PNEUMOVAX) [facility] Pneumococcal 2018-08-31 Completed [facility] f Polysaccharide, 00:00:00 [facility] PPSV23 (PNEUMOVAX) [facility] Pneumococcal 2018-08-31 Completed [facility] f Polysaccharide, 00:00:00 [facility] PPSV23 (PNEUMOVAX) [facility] Pneumococcal 2018-08-31 Completed [facility] f Polysaccharide, 00:00:00 [facility] PPSV23 (PNEUMOVAX) [facility] Pneumococcal 2018-08-31 Completed [facility] f Polysaccharide, 00:00:00 [facility] PPSV23 (PNEUMOVAX) [facility] Pneumococcal 2018-08-31 Completed [facility] f Polysaccharide, 00:00:00 [facility] PPSV23 (PNEUMOVAX) [facility] Pneumococcal 2018-08-31 Completed [facility] f Polysaccharide, 00:00:00 [facility] PPSV23 (PNEUMOVAX) [facility] Pneumococcal 2018-08-31 Completed [facility] f Polysaccharide, 00:00:00 [facility] PPSV23 (PNEUMOVAX) [facility] Pneumococcal 2018-08-31 Completed [facility] f Polysaccharide, 00:00:00 [facility] PPSV23 (PNEUMOVAX) [facility] Pneumococcal 2018-08-31 Completed [facility] f Polysaccharide, 00:00:00 [facility] PPSV23 (PNEUMOVAX) [facility] Pneumococcal 2018-08-31 Completed [facility] f Polysaccharide, 00:00:00 [facility] PPSV23 (PNEUMOVAX) [facility] Pneumococcal 2018-08-31 Completed [facility] f Polysaccharide, 00:00:00 [facility] PPSV23 (PNEUMOVAX) [facility] Pneumococcal 2018-08-31 Completed [facility] f Polysaccharide, 00:00:00 [facility] PPSV23 (PNEUMOVAX) [facility] Pneumococcal 2018-08-31 Completed [facility] f Polysaccharide, 00:00:00 [facility] PPSV23 (PNEUMOVAX) [facility] Pneumococcal 2018-08-31 Completed [facility] f Polysaccharide, 00:00:00 [facility] PPSV23 (PNEUMOVAX) [facility] Pneumococcal 2018-08-31 Completed [facility] o f Polysaccharide, 00:00:00 [facility] PPSV23 (PNEUMOVAX) Branch Pneumococcal 2018-08-31 Completed [facility] f Polysaccharide, 00:00:00 [facility] PPSV23 (PNEUMOVAX) [facility] Pneumococcal 2018-08-31 Completed [facility] o f Polysaccharide, 00:00:00 [facility] PPSV23 (PNEUMOVAX) [facility] Pneumococcal 2018-08-31 Completed [facility] o f Polysaccharide, 00:00:00 [facility] PPSV23 (PNEUMOVAX) [facility] Pneumococcal 2018-08-31 Completed [facility] f Polysaccharide, 00:00:00 [facility] PPSV23 (PNEUMOVAX) [facility] Pneumococcal 2018-08-31 Completed [facility] f Polysaccharide, 00:00:00 [facility] PPSV23 (PNEUMOVAX) [facility] Pneumococcal 2018-08-31 Completed [facility] o f Polysaccharide, 00:00:00 [facility] PPSV23 (PNEUMOVAX) Branch Pneumococcal 2018-08-31 Completed [facility] f Polysaccharide, 00:00:00 [facility] PPSV23 (PNEUMOVAX) Branch Pneumococcal 2018-08-31 Completed [facility] f Polysaccharide, 00:00:00 [facility] PPSV23 (PNEUMOVAX) Branch Pneumococcal 2018-08-31 Completed [facility] f Polysaccharide, 00:00:00 [facility] PPSV23 (PNEUMOVAX) Branch Pneumococcal 2018-08-31 Completed [facility] f Polysaccharide, 00:00:00 [facility] PPSV23 (PNEUMOVAX) [facility] Pneumococcal 2018-08-31 Completed [facility] o f Polysaccharide, 00:00:00 [facility] PPSV23 (PNEUMOVAX) Branch Pneumococcal 2018-08-31 Completed [facility] o f Polysaccharide, 00:00:00 [facility] PPSV23 (PNEUMOVAX) Branch Pneumococcal 2018-08-31 Completed [facility] o f Polysaccharide, 00:00:00 [facility] PPSV23 (PNEUMOVAX) Branch Pneumococcal 2018-08-31 Completed [facility] o f Polysaccharide, 00:00:00 [facility] PPSV23 (PNEUMOVAX) Branch Pneumococcal 2018-08-31 Completed [facility] o f Polysaccharide, 00:00:00 [facility] PPSV23 (PNEUMOVAX) Branch Pneumococcal 2018-08-31 Completed [facility] o f Polysaccharide, 00:00:00 [facility] PPSV23 (PNEUMOVAX) Branch Pneumococcal 2018-08-31 Completed [facility] o f Polysaccharide, 00:00:00 [facility] PPSV23 (PNEUMOVAX) Branch Influenza Virus 2018-01-08 Completed [facility] Vaccine Quad .5 mL 00:00:00 [facility] Influenza Virus 2018-01-08 Completed [facility] Vaccine Quad .5 mL 00:00:00 [facility] Influenza Virus 2018-01-08 Completed [facility] Vaccine Quad .5 mL 00:00:00 [facility] Influenza Virus 2018-01-08 Completed [facility] Vaccine Quad .5 mL 00:00:00 [facility] Influenza Virus 2018-01-08 Completed [facility] Vaccine Quad .5 mL 00:00:00 [facility] Influenza Virus 2018-01-08 Completed [facility] Vaccine Quad .5 mL 00:00:00 [facility] Influenza Virus 2018-01-08 Completed [facility] Vaccine Quad .5 mL 00:00:00 [facility] Influenza Virus 2018-01-08 Completed [facility] Vaccine Quad .5 mL 00:00:00 [facility] Influenza Virus 2018-01-08 Completed [facility] Vaccine Quad .5 mL 00:00:00 [facility] Influenza Virus 2018-01-08 Completed [facility] Vaccine Quad .5 mL 00:00:00 [facility] Influenza Virus 2018-01-08 Completed [facility] Vaccine Quad .5 mL 00:00:00 [facility] Influenza Virus 2018-01-08 Completed [facility] Vaccine Quad .5 mL 00:00:00 [facility] Influenza Virus 2018-01-08 Completed [facility] Vaccine Quad .5 mL 00:00:00 [facility] Influenza Virus 2018-01-08 Completed [facility] Vaccine Quad .5 mL 00:00:00 [facility] Influenza Virus 2018-01-08 Completed [facility] Vaccine Quad .5 mL 00:00:00 [facility] Influenza Virus 2018-01-08 Completed [facility] Vaccine Quad .5 mL 00:00:00 [facility] Influenza Virus 2018-01-08 Completed [facility] Vaccine Quad .5 mL 00:00:00 [facility] Influenza Virus 2018-01-08 Completed [facility] Vaccine Quad .5 mL 00:00:00 [facility] Influenza Virus 2018-01-08 Completed [facility] Vaccine Quad .5 mL 00:00:00 [facility] Influenza Virus 2018-01-08 Completed [facility] Vaccine Quad .5 mL 00:00:00 [facility] Influenza Virus 2018-01-08 Completed [facility] Vaccine Quad .5 mL 00:00:00 [facility] Influenza Virus 2018-01-08 Completed [facility] Vaccine Quad .5 mL 00:00:00 [facility] Influenza Virus 2018-01-08 Completed [facility] Vaccine Quad .5 mL 00:00:00 [facility] Influenza Virus 2018-01-08 Completed [facility] Vaccine Quad .5 mL 00:00:00 [facility] Influenza Virus 2018-01-08 Completed [facility] Vaccine Quad .5 mL 00:00:00 [facility] Influenza Virus 2018-01-08 Completed [facility] Vaccine Quad .5 mL 00:00:00 [facility] Influenza Virus 2018-01-08 Completed [facility] Vaccine Quad .5 mL 00:00:00 [facility] Influenza Virus 2018-01-08 Completed [facility] Vaccine Quad .5 mL 00:00:00 [facility] Influenza Virus 2018-01-08 Completed [facility] Vaccine Quad .5 mL 00:00:00 [facility] Influenza Virus 2018-01-08 Completed [facility] Vaccine Quad .5 mL 00:00:00 [facility] Influenza Virus 2018-01-08 Completed [facility] Vaccine Quad .5 mL 00:00:00 [facility] Influenza Virus 2018-01-08 Completed [facility] Vaccine Quad .5 mL 00:00:00 [facility] Influenza Virus 2018-01-08 Completed [facility] Vaccine Quad .5 mL 00:00:00 [facility] Influenza Virus 2018-01-08 Completed [facility] Vaccine Quad .5 mL 00:00:00 [facility] Influenza Virus 2018-01-08 Completed [facility] Vaccine Quad .5 mL 00:00:00 [facility] Influenza Virus 2018-01-08 Completed [facility] Vaccine Quad .5 mL 00:00:00 [facility] Influenza Virus 2018-01-08 Completed [facility] Vaccine Quad .5 mL 00:00:00 [facility] Influenza Virus 2018-01-08 Completed [facility] Vaccine Quad .5 mL 00:00:00 [facility] Td 1999-02-28 Completed [facility] of 00:00:00 [facility] Td 1999-02-28 Completed [facility] of 00:00:00 [facility] Td 1999-02-28 Completed [facility] 00:00:00 [facility] Td 1999-02-28 Completed [facility] 00:00:00 [facility] Td 1999-02-28 Completed [facility] 00:00:00 [facility] Td 1999-02-28 Completed [facility] 00:00:00 [facility] Td 1999-02-28 Completed [facility] 00:00:00 [facility] Td 1999-02-28 Completed [facility] 00:00:00 [facility] Td 1999-02-28 Completed [facility] 00:00:00 [facility] Td 1999-02-28 Completed [facility] 00:00:00 [facility] Td 1999-02-28 Completed [facility] 00:00:00 [facility] Td 1999-02-28 Completed [facility] 00:00:00 [facility] Td 1999-02-28 Completed [facility] 00:00:00 [facility] Td 1999-02-28 Completed [facility] 00:00:00 [facility] Td 1999-02-28 Completed [facility] 00:00:00 [facility] Td 1999-02-28 Completed [facility] 00[facility]00:00 [facility] Td 1999-02-28 Completed [facility] 00:00:00 [facility] Td 1999-02-28 Completed [facility] 00:00:00 [facility] Td 1999-02-28 Completed [facility] 00:00:00 [facility] TD, NOS 1999-02-28 Completed [facility] 00:00:00 [facility] TD, NOS 1999-02-28 Completed [facility] 00:00:00 [facility] TD, NOS 1999-02-28 Completed [facility] 00:00:00 [facility] TD, NOS 1999-02-28 Completed [facility] 00:00:00 [facility] TD, NOS 1999-02-28 Completed [facility] 00:00:00 [facility] TD, NOS 1999-02-28 Completed [facility] 00:00:00 [facility] TD, NOS 1999-02-28 Completed [facility] 00:00:00 [facility] TD, NOS 1999-02-28 Completed [facility] 00:00:00 [facility] TD, NOS 1999-02-28 Completed [facility] 00:00:00 [facility] TD, NOS 1999-02-28 Completed [facility] 00:00:00 [facility] TD, NOS 1999-02-28 Completed [facility] 00:00:00 [facility] TD, NOS 1999-02-28 Completed [facility] 00:00:00 [facility] TD, NOS 1999-02-28 Completed [facility] 00:00:00 [facility] TD, NOS 1999-02-28 Completed [facility] 00:00:00 [facility] TD, NOS 1999-02-28 Completed [facility] 00:00:00 [facility] TD, NOS 1999-02-28 Completed [facility] 00:00:00 [facility] TD, NOS 1999-02-28 Completed [facility] 00:00:00 [facility] TD, NOS 1999-02-28 Completed [facility] 00:00:00 [facility] TD, NOS 1999-02-28 Completed [facility] 00:00:00 [facility] Vital Signs Vital Name Observation Time Observation Value Comments Source Systolic blood 2022-09-04 16:56:00 128 mm[Hg] Univer sity of pressure [facility] Diastolic blood 2022-09-04 16:56:00 72 mm[Hg] Unive rsity of pressure [facility] Heart rate 2022-09-04 16:56:00 52 /min [facility] Body temperature 2022-09-04 16:56:00 36.5 Stephanie [facility] Res[facility] rate 2022-09-04 16:56:00 18 /min [facility] Oxygen saturation in 2022-09-04 16:56:00 96 /min [facility] Arterial blood by [facility] Pulse oximetry Branch Body weight 2022-09-03 08:52:00 73.437 kg [facility] BMI 2022-09-03 08:52:00 25.36 kg/m2 [facility] Body height 2022-09-02 01:39:00 170.2 cm [facility] Systolic blood 2022-07-29 03:00:00 139 mm[Hg] Univer sity of pressure [facility] Diastolic blood 2022-07-29 03:00:00 99 mm[Hg] Unive rsity of pressure [facility] Heart rate 2022-07-29 03:00:00 64 /min [facility] Respiratory rate 2022-07-29 03:00:00 18 /min [facility] Oxygen saturation in 2022-07-29 03:00:00 92 /min [facility] of Arterial blood by [employer] Pulse oximetry Branch Body temperature 2022-07-28 22:43:00 37 Stephanie [facility] Body height 2022-07-28 22:43:00 170.2 cm [facility] Body weight 2022-07-28 22:43:00 65.772 kg [facility] BMI 2022-07-28 22:43:00 22.71 kg/m2 [facility] Systolic blood 2022-06-09 17:17:00 150 mm[Hg] Univer sity of pressure [facility] Diastolic blood 2022-06-09 17:17:00 90 mm[Hg] Unive rsity of pressure [facility] Heart rate 2022-06-09 17:16:00 53 /min [facility] Respiratory rate 2022-06-09 17:16:00 18 /min [facility] Body height 2022-06-09 17:16:00 170.2 cm [facility] Body weight 2022-06-09 17:16:00 63.05 kg [facility] BMI 2022-06-09 17:16:00 21.77 kg/m2 [facility] Oxygen saturation in 2022-06-09 17:16:00 97 /min University of Arterial blood by [email or web address] veronica Pulse oximetry Branch Systolic blood 2022-06-01 20:04:00 135 mm[Hg] Univer sity of pressure [facility] Diastolic blood 2022-06-01 20:04:00 76 mm[Hg] Unive rsity of pressure [facility] Heart rate 2022-06-01 20:04:00 51 /min [facility] Body temperature 2022-06-01 20:04:00 35.78 Stephanie [facility] Respiratory rate 2022-06-01 20:04:00 18 /min Univ [facility] Oxygen saturation in 2022-06-01 20:04:00 95 /min [facility] Arterial blood by [place] [employer] veronica Pulse oximetry Branch Body weight 2022-06-01 09:13:00 63.458 kg [facility] BMI 2022-06-01 09:13:00 21.91 kg/m2 [facility] Body height 2022-05-28 00:39:00 170.2 cm [facility] Systolic blood 2022-05-14 18:37:00 134 mm[Hg] Univer sity of pressure [facility] Diastolic blood 2022-05-14 18:37:00 89 mm[Hg] Unive rsity of pressure [facility] Heart rate 2022-05-14 18:37:00 56 /min [facility] Body temperature 2022-05-14 18:37:00 37 Stephanie [facility] Respiratory rate 2022-05-14 18:37:00 18 /min [facility] Body weight 2022-05-14 18:37:00 67.132 kg [facility] BMI 2022-05-14 18:37:00 23.18 kg/m2 [facility] Oxygen saturation in 2022-05-14 18:37:00 96 /min [facility] of Arterial blood by [facility] Pulse oximetry Branch Systolic blood 2022-03-11 21:04:14 137 mm[Hg] Univer sity of pressure [facility] Diastolic blood 2022-03-11 21:04:14 82 mm[Hg] Unive rsity of pressure [facility] Heart rate 2022-03-11 21:04:14 63 /min [facility] Respiratory rate 2022-03-11 21:04:14 27 /min Univ [facility] Oxygen saturation in 2022-03-11 21:04:14 100 /min [facility] Arterial blood by [place] [employer] [facility] Pulse oximetry Branch Body temperature 2022-03-11 17:25:00 37.11 Stephanie [facility] Body weight 2022-03-11 17:25:00 58.968 kg [facility] BMI 2022-03-11 17:25:00 20.36 kg/m2 [facility] Heart rate 2022-02-19 21:22:00 60 /min [facility] Respiratory rate 2022-02-19 21:22:00 18 /min [facility] Oxygen saturation in 2022-02-19 21:22:00 99 /min [facility] Arterial blood by [place] [employer] [facility] Pulse oximetry Branch Systolic blood 2022-02-19 17:49:00 113 mm[Hg] Univer sity of pressure [facility] Diastolic blood 2022-02-19 17:49:00 56 mm[Hg] Unive rsity of pressure [facility] Body temperature 2022-02-19 17:49:00 36.17 Stephanie [facility] Body weight 2022-02-19 09:38:00 59.467 kg [facility] BMI 2022-02-19 09:38:00 20.53 kg/m2 [facility] Body height 2022-02-17 04:20:00 170.2 cm [facility] Systolic blood 2022-01-27 17:16:00 131 mm[Hg] Univer sity of pressure [facility] Diastolic blood 2022-01-27 17:16:00 74 mm[Hg] Unive rsity of pressure [facility] Heart rate 2022-01-27 17:16:00 47 /min [facility] Respiratory rate 2022-01-27 17:16:00 18 /min [facility] Body weight 2022-01-27 17:16:00 58.06 kg [facility] BMI 2022-01-27 17:16:00 20.05 kg/m2 [facility] Oxygen saturation in 2022-01-27 17:16:00 98 /min [facility] of Arterial blood by [facility] Pulse oximetry Branch Systolic blood 2022-01-05 19:28:00 99 mm[Hg] [facility] Diastolic blood 2022-01-05 19:28:00 63 mm[Hg] [facility] Heart rate 2022-01-05 19:28:00 43 [facility] 2022-01-05 19:26:00 36.11 Stephanie [facility] Respiratory rate 2022-01-05 19:26:00 18 /[facility] Body height 2022-01-05 19:26:00 [facility] 2022-01-05 19:26:00 [facility] 2022-01-05 19:26:00 20.05 kg[facility]m2 [facility] Systolic blood 2021-12-15 16:12:00 119 mm[Hg] Univer sity of pressure [facility] Diastolic blood 2021-12-15 16:12:00 77 mm[Hg] Unive rsity of pressure [facility] Heart rate 2021-12-15 16:12:00 66 /min [facility] [place] [facility] [place] Body temperature 2021-12-15 16:12:00 36.5 Stephanie [facility] Respiratory rate 2021-12-15 16:12:00 18 /min [facility] Body height 2021-12-15 16:12:00 170.2 cm [facility] [place] Body weight 2021-12-15 16:12:00 58.65 kg [facility] BMI 2021-12-15 16:12:00 20.25 kg/m2 [facility] Systolic blood 2021-11-16 19:09:00 102 mm[Hg] Univer sity of pressure [facility] Diastolic blood 2021-11-16 19:09:00 59 mm[Hg] Unive rsity of pressure [facility] Heart rate 2021-11-16 19:09:00 47 /min [facility]i [facility] of [facility] Body temperature 2021-11-16 19:09:00 36.22 Stephanie Univ ersity of [facility] Respiratory rate 2021-11-16 19:09:00 18 /min Univ [facility] Oxygen saturation in 2021-11-16 19:09:00 92 /min [facility] of Arterial blood by [facility] Pulse oximetry [place] Body weight 2021-11-16 08:56:00 61.961 kg [facility] BMI 2021-11-16 08:56:00 21.39 kg/m2 [facility] Body height 2021-11-14 20:16:00 170.2 cm [facility] Systolic blood 2021-07-31 18:39:00 133 mm[Hg] Univer sity of pressure [facility] Diastolic blood 2021-07-31 18:39:00 88 mm[Hg] Unive rsity of [facility] Heart rate 2021-07-31 18:39:00 80 /min [facility] Body temperature 2021-07-31 18:39:00 36.22 Stephanie [facility] Respiratory rate 2021-07-31 18:39:00 18 /min [facility] Body weight 2021-07-31 18:39:00 62.279 kg [facility] BMI 2021-07-31 18:39:00 21.50 kg/m2 [facility] Oxygen saturation in 2021-07-31 18:39:00 94 /min [facility] Arterial blood by [facility] Pulse oximetry [place] Procedures Procedure Date / Time Performing Clinician Source Performed BASIC METABOLIC PANEL 2022-09-04 10:12:00 Miguelito Frias [facility] (NA, K, CL, CO2, GLUCOSE, Medica l Branch BUN, CREATININE, CA) CBC WITH DIFF 2022-09-04 10:12:00 Miguelito Frias [facility] N-TERMINAL PRO-BNP 2022-09-04 10:12:00 Miguelito Frias [facility] BASIC METABOLIC PANEL 2022-09-03 08:59:00 Miguelito Frias [facility] (NA, K, CL, CO2, GLUCOSE, Medica l Branch BUN, CREATININE, CA) CBC WITH DIFF 2022-09-03 08:59:00 Miguelito Frias [facility] N-TERMINAL PRO-BNP 2022-09-03 08:59:00 Miguelito Frias [facility] TRANSTHORACIC ECHO (TTE) 2022-09-02 14:40:00 Sally Castro [facility] URINALYSIS 2022-09-01 23:09:00 Stoney Cody [facility] URINE DRUG (IMMUNOASSAY) 2022-09-01 23:09:00 Stoney Cody [facility] SCREEN W/O REFLEX XR CHEST 2 VW 2022-09-01 21:20:22 Stoney Cody [facility] HB ECG ROUTINE & RHYTHM 2022-09-01 21:04:[address] [facility] TROPONIN I 2022-09-01 20:52:00 Stoney Cody [facility] COMP. METABOLIC PANEL 2022-09-01 20:52:00 Stoney Cody [facility] ([id number]) [facility] CBC WITH DIFF 2022-09-01 20:52:00 Stoney Cody [facility] N-TERMINAL PRO-BNP 2022-09-01 20:52:00 Stoney Cody [facility] CONSENT/REFUSAL FOR 2022-09-01 19:59:49 Doctor Unassigned, [facility] DIAGNOSIS AND TREATMENT [facility] CT ABDOMEN PELVIS W 2022-07-29 01:31:00 Wilner Torres [facility] CONTRAST [facility] LIPASE 2022-07-29 00:21:00 Wilner Torres [facility] COMP. METABOLIC PANEL 2022-07-29 00:21:00 Wilner Torres [facility] ([id number]) [facility] URINE DRUG (IMMUNOASSAY) 2022-07-29 00:21:00 Wilner Torres [facility] SCREEN CBC WITH DIFF 2022-07-29 00:21:00 Wilner Torres [facility] URINALYSIS 2022-07-29 00:21:00 Wilner Torres [facility] CONSENT/REFUSAL FOR 2022-07-28 23:55:06 Doctor Kirk [facility] DIAGNOSIS AND TREATMENT [facility] [place] CONSENT/REFUSAL FOR 2022-07-28 22:28:02 Doctor Kirk [facility] DIAGNOSIS AND TREATMENT [facility] [place] AUTHORIZATION FOR RELEASE 2022-06-14 05:01:00 Doctor Kirk, [facility] Name Medical [place] BASIC METABOLIC PANEL 2022-06-01 09:58:00 Miguelito Frias [facility] (NA, K, CL, CO2, GLUCOSE, Medica l Branch BUN, CREATININE, CA) CBC WITH DIFF 2022-06-01 09:58:00 Miguelito Frias [facility] BASIC METABOLIC PANEL 2022-05-31 09:01:00 Pearl Trinidad [facility] (NA, K, CL, CO2, GLUCOSE, Medica l Branch BUN, CREATININE, CA) CBC WITH DIFF 2022-05-31 09:01:00 Pearl Trinidad [facility] N-TERMINAL PRO-BNP 2022-05-31 09:01:00 Pearl Trinidad [facility] BASIC METABOLIC PANEL 2022-05-29 16:12:00 Pearl Trinidad [facility] (NA, K, CL, CO2, GLUCOSE, Medica l Branch BUN, CREATININE, CA) CBC WITH DIFF 2022-05-29 09:18:00 Pearl Trinidad [facility] N-TERMINAL PRO-BNP 2022-05-29 09:18:00 Pearl Trinidad [facility] XR SHOULDER 2+ VW LEFT 2022-05-28 11:04:00 Anuj [facility] MAGNESIUM 2022-05-28 09:22:00 Anuj [facility] FERRITIN SERUM 2022-05-28 09:22:00 Anuj [facility] TRANSFERRIN 2022-05-28 09:22:00 [facility] 2022-05-28 09:22:00 Anuj [facility] (NA, K, CL, CO2, GLUCOSE, Medica l Branch BUN, CREATININE, CA) IRON PANEL 2022-05-28 09:22:00 [facility] CBC WITH DIFF 2022-05-28 09:22:00 [facility] XR CHEST 1 VW 2022-05-27 21:20:00 Nikki Rodríguez [facility] URINE DRUG (IMMUNOASSAY) 2022-05-27 21:01:00 Sally Castro [facility] SCREEN URINALYSIS 2022-05-27 21:01:00 Nikki Rodríguez [facility] MAGNESIUM 2022-05-27 20:39:00 Nikki Rodríguez [facility] TROPONIN I 2022-05-27 20:39:00 Nikki Rodríguez [facility] COMP. METABOLIC PANEL 2022-05-27 20:39:00 Nikki Rodríguez [facility] ([id number]) [facility] CBC WITH DIFF 2022-05-27 20:39:00 Nikki Rodríguez [facility] N-TERMINAL PRO-BNP 2022-05-27 20:39:[address]uez [facility] HB ECG ROUTINE & RHYTHM 2022-05-27 20:32:46 Nikki Rodríguez [facility] CONSENT/REFUSAL FOR 2022-05-27 20:16:28 Doctor Unassmonica, [facility] DIAGNOSIS AND TREATMENT [facility] [place] [facility] ABDOMEN PELVIS W 2022-05-27 20:14:00 Toni Aguirre [facility] CONTRAST [facility] HB CREATININE SERUM/BLOOD 2022-05-27 19:57:00 Toni Aguirre [facility] FOR IMAGING Medical Branch REFERRAL- 2022-05-03 06:01:00 Doctor Kirk, [facility] REQUEST/RESPONSE [place] [facility] CRITICAL CARE 2022-03-11 20:22:32 Andrae Peñaloza [facility] CT HEAD WO CONTRAST 2022-03-11 18:52:22 Andrae Peñaloza [facility] URINALYSIS 2022-03-11 18:01:00 Jh [facility] URINE DRUG (IMMUNOASSAY) 2022-03-11 18:01:00 Andrae Peñaloza [facility] SCREEN W/O REFLEX CREATINE KINASE 2022-03-11 17:50:00 Jh [facility] MAGNESIUM 2022-03-11 17:50:00 Jh Andrae [facility] FREE T4 2022-03-11 17:50:00 Jh [facility] THYROID STIMULATING 2022-03-11 17:50:00 Jh Andrae [facility] HORMONE [facility] COMP. METABOLIC PANEL 2022-03-11 17:50:00 Andrae Peñaloza [facility] ([id number]) Medical Branch ETHANOL 2022-03-11 17:50:00 Jh [facility] CBC WITH DIFF 2022-03-11 17:50:00 Jh [facility] XR CHEST 2 VW 2022-02-19 16:14:49 Mignon [facility] BASIC METABOLIC PANEL 2022-02-19 09:26:00 Pearl Trin[facility] [place] (NA, K, CL, CO2, GLUCOSE, Medica l Branch BUN, CREATININE, CA) CBC WITH DIFF 2022-02-19 09:26:00 Amos Pearl [facility] BASIC METABOLIC PANEL 2022-02-18 11:08:00 Pearl Trinidad [facility] [place] (NA, K, CL, CO2, GLUCOSE, Medica [facility] Branch BUN, CREATININE, CA) CBC WITH DIFF 2022-02-18 11:08:00 Pearl Trinidad [facility] PNEUMOCOCCAL ANTIGEN 2022-02-18 03:04:00 Dede Crow [facility] SPUTUM CULTURE 2022-02-18 03:04:00 Dede Crow [facility] BLOOD CULTURE SCREEN 2022-02-18 02:58:00 Dede Crow [facility] RESPIRATORY PANEL BY PCR 2022-02-18 02:58:00 Dede Crow [facility] CT THORAX W CONTRAST 2022-02-17 17:34:16 Pearl Trinidad [facility] TROPONIN I 2022-02-17 10:02:00 Dede Crow [facility] BASIC METABOLIC PANEL 2022-02-17 10:02[facility], K, CL, CO2, GLUCOSE, Medica l Branch BUN, CREATININE, CA) CBC WITH DIFF 2022-02-17 10:02:00 [facility] N-TERMINAL PRO-BNP 2022-02-17 10:02:00 Dede Crow [facility] PROCALCITONIN 2022-02-17 10:02:00 [facility] XR CHEST 2 VW 2022-02-17 02:26:00 Maria Ines Suarez [facility] URINALYSIS 2022-02-17 02:01:00 Maria Ines Suarez [facility] LIPASE 2022-02-17 01:22:00 Maria Ines Suarez [facility] TROPONIN I 2022-02-17 01:22:00 Maria Ines Suarez [facility] COMP. METABOLIC PANEL 2022-02-17 01:22:00 Maria Ines Suarez [facility] ([id number]) [facility] CBC WITH DIFF 2022-02-17 01:22:00 Maria Ines Suarez [facility] N-TERMINAL PRO-BNP 2022-02-17 01:22:00 Maria Ines Suarez [facility] RAPID INFLUENZA A/B 2022-02-17 01:21:00 Maria Ines Suarez [facility] COVID-19 (ID NOW RAPID 2022-02-17 01:21:00 Maria Ines Suarez [facility] TESTING) Medical Branch LAB ONLY COVID 2022-02-17 01:21:00 Maria Ines Suarez [facility] INTERPRETATION Medical [place] CONSENT/REFUSAL FOR 2022-02-17 00:47:44 Doctor Unassigned, [facility] DIAGNOSIS AND TREATMENT [facility] REFERRAL- 2021-12-28 05:01:00 Doctor Unassigned, [facility] REQUEST/RESPONSE [facility] FLU VACC ([id number]), 6 2021-12-15 16:18:21 Charles Chavez [facility] MO-62 YRS, .5ML, IM, QUAD Medica [facility] Branch (FLUCELVAX) TRANSTHORACIC ECHO (TTE) 2021-11-16 13:27:00 Dede Crow [facility] COMPLETE [facility] BASIC METABOLIC PANEL 2021-11-16 10:53:00 Pearl Trinidad [facility] (NA, K, CL, CO2, GLUCOSE, Medica l Branch BUN, CREATININE, CA) CBC WITH DIFF 2021-11-16 10:53:00 Pearl Trinidad [facility] N-TERMINAL PRO-BNP 2021-11-16 10:53:00 Pearl Trinidad [facility] HB ECG ROUTINE & RHYTHM 2021-11-15 12:58:16 Pearl Trinidad [facility] STRIP [facility] N-TERMINAL PRO-BNP 2021-11-15 09:42:00 Pearl Trinidad [facility] PHOSPHORUS 2021-11-14 21:58:00 Pearl Trinidad [facility] LIPASE 2021-11-14 21:58:00 Velasquez Blackwood [facility] MAGNESIUM 2021-11-14 21:58:00 Jaison [facility] FERRITIN SERUM 2021-11-14 21:58:00 Pearl Trinidad Lissy [facility] TROPONIN I 2021-11-14 21:58:00 Velasquez Blackwood [facility] COMP. METABOLIC PANEL 2021-11-14 21:58:00 Velasquez Blackwood [facility] ([id number]) Medical Branch IRON PANEL 2021-11-14 21:58:00 Pearl Trinidad [facility] CBC WITH DIFF 2021-11-14 21:58:00 [facility] N-TERMINAL PRO-BNP 2021-11-14 21:58:00 Velasquez Blackwood [facility] RAPID INFLUENZA A/B 2021-11-14 21:03:00 Velasquez Blackwood [facility] COVID-19 (ID NOW RAPID 2021-11-14 21:03:00 Velasquez Blackwood [facility] TESTING) Medical Branch LAB ONLY COVID 2021-11-14 21:03:00 [facility] HB ECG ROUTINE & RHYTHM 2021-11-14 21:00:28 [facility] STRIP [facility] XR CHEST 2 VW 2021-11-14 20:38:38 Jaison [facility] CONSENT/REFUSAL FOR 2021-11-14 20:09:29 Doctor Unassigned, [facility] DIAGNOSIS AND TREATMENT [place] [facility] EXTERNAL PROVIDER RECORDS 2021-08-27 05:01:00 Doctor Unaopal, [facility] Name [facility] Plan of Care Planned Activity Planned Date Details Comments Source Future Scheduled Test 2008 00:00:00 Screening for [facility] malignant neoplasm of colon (procedure) [code = 219419751] Future Scheduled Test 2008 00:00:00 Screening for [facility] malignant neoplasm of colon (procedure) [code = 674483525] Future Scheduled Test 1998 00:00:00 Breast Cancer Scrn [facility] (Yearly) [code = Breast Cancer Scrn (Yearly)] Future Scheduled Test 1998 00:00:00 Breast Cancer Scrn [facility] (Yearly) [code = Breast Cancer Scrn (Yearly)] Future Scheduled Test 1988 00:00:00 Screening for [facility] malignant neoplasm of cervix (procedure) [code = 374349095] Future Scheduled Test 1988 00:00:00 Screening for [facility] malignant neoplasm of cervix (procedure) [code = 056082933] Future Scheduled Test 1988 00:00:00 Screening for [facility] malignant neoplasm of cervix (procedure) [code = 285420558] Future Scheduled Test 1988 00:00:00 Screening for [facility] malignant neoplasm of cervix (procedure) [code = [id number]] Future Scheduled Test 1959-01-12 00:00:00 COVID-19 Vaccine (#1) [facility] [code = COVID-19 Vaccine (#1)] Future Scheduled Test 1959-01-12 00:00:00 COVID-19 Vaccine (#1) [facility] [code = COVID-19 Vaccine (#1)] Encounters Start End Encounter Admission Attending Care Care Encounter Source Date/Time Date/Time Type Type Clinicians Facility Department ID 2022-01-05 Outpatient [facility] [id number] [place] 13:05:[id number] [facility] 2021-12-03 Outpatient [facility] [id number] [place] 09:30:[id number] [facility] 2021-11-30 Outpatient [facility] [id number] [place] 09:28:[id number] [facility] 2021-11-28 Outpatient [facility] [id number] [place] 14:54:[id number] [facility] 2020-12-30 Emergency [facility] [id number] Univers 07:04:11 ity [facility] 2020-12-29 Emergency [facility] [id number] Univers 06:15:08 ity of [facility] 2020-12-26 Emergency [facility] [id number] Univers 21:55:19 ity [facility] 2020-12-26 Emergency [facility] [id number] Univers 12:30:[facility] 2019-10-09 Inpatient SAVANNAH Castro, [facility] [id number] [facility] 13:00:00 Harsh Paz [facility] 2022-09-14 2022-09-14 Outpatient R KATHY, [facility] [id number] Univers 16:00:00 16:00:00 CHARLES ity [facility] 2022-09-06 2022-09-06 Transition AMAYA Olivia 1.2.840.114 [id number] Univers 00:00:00 00:00:00 of Care Chery MORELAND 350.1.13.10 i ty of [place] [id number] [address] 2022-09-01 2022-09-04 Inpatient X OPAL [facility] AMY [id number] Univers 15:15:00 15:05:00 SHERLY ity [facility] 2022-09-01 2022-09-04 Hospital Stoney Cody [facility] 1.2.840.114 [id number] Univers 15:15:00 15:05:00 Encounter Sally Castro 350.1.13.10 ity of [facility] 4.2.7.2.686 [facility] [id number] [facility] [address] 2022-08-04 2022-08-04 [facility] 1.2.840.114 [id number] Univers 00:00:00 00:00:00 Charles LOPEZ 350.1.13.10 i ty of [place] [id number] Co dical NAL [address] [place] [address] 2022-07-28 2022-07-[address] [facility] ERT [id number] Univers 17:45:00 23:31:00 [facility] 2022-07-28 2022-07-28 Emergency [facility] 1.2.160.023 [id number] Univers 17:45:00 23:31:00 Wilner LOPEZ 350.1.13.10 i ty of [place].2.7.2.[place] [id number] [facility] [address] 2022-06-16 2022-06-16 Outpatient R TONI AGUIRRE [facility] [id number] Univers 15:00:00 15:00:00 TONI AGUIRRE ity of [facility] 2022-06-14 2022-06-14 Orders Doctor AMBRIZ 1.2.840.114 [id number] Univers 00:00:00 00:00:00 Only Unassigned, MOHINI 350.1.13.10 ity of [place] [facility] 4.2.7.2.686 Rishabh as [phone] [facility] [address] 2022-06-09 2022-06-09 Outpatient R JOHANNE AGUIRRENicoleShirin [facility] [id number] Univers 12:00:00 12:43:37 JOHANNE AGUIRRENicoleShirin [facility] 2022-06-09 2022-06-09 Office Carla, [facility] 1.2.840.114 [id number] Univers 12:00:00 12:43:37 Visit Toni LOPEZ 350.1.13.10 ity [facility] [place].2.7.2.[place] [facility] [id number] Co dical [facility] 044 [facility] 2022-06-08 2022-06-08 Outpatient R CARLA, TONI [facility] [id number] Univers 14:30:00 14:30:00 JOHANNE AGUIRRENicoleShirin [facility] 2022-06-02 2022-06-02 Transition AMAYA Olivia 1.2.840.114 [id number] Univers 00:00:00 00:00:00 of Care Chery MORELAND 350.1.13.10 i ty of [place] [id number] [facility] [address] 2022-05-27 2022-06-01 Inpatient X MAT[facility]W [facility] [id number] Univers 15:23:00 15:44:00 SALLY itshazia [facility] 2022-05-27 2022-06-01 [facility] Nikki Rodríguez [facility] 1.2.84 0.114 [id number] Univers 15:23:00 15:44:00 Encounter Sally Castro 350.1.13.10 ity [facility] 4.2.7.2.[place] [id number] [facility] [address] 2022-05-27 2022-05-27 Outpatient R CARLA, TONI [facility] [id number] Univers 14:26:44 15:22:00 CARLADUDLEYAXELShirin [facility] 2022-05-27 2022-05-27 [facility] Carla [facility] 1.2.878.236 [id number] Univers 14:26:44 15:22:00 Encounter Toni LOPEZ 350.1.13.10 ity of [facility] 4.2.7.2.[place] [id number] [address] 2022-05-20 2022-05-20 Outpatient R TONI AGUIRRE [facility] [id number] Univers 00:00:00 00:00:00 TONI AGUIRRE [facility] 2022-05-17 2022-05-17 Telephone Carla [facility] 1.2.840.114 [id number] Univers 00:00:00 00:00:00 Toni LOPEZ 350.1.13.10 ity of [place] [id number] [address] 2022-05-14 2022-05-14 Outpatient R TONI AGUIRRE [facility] [id number] Univers 13:30:00 14:29:16 [facility]I [facility] 2022-05-14 2022-05-14 [facility] 1.2.840.114 [id number] Univers 13:30:00 14:29:16 Visit Toni LOPEZ 350.1.13.10 ity of [facility] 4.2.7.2.[place] [id number] [address] 2022-05-10 2022-05-10 Outpatient R TONI AGUIRRE [facility] [id number] Univers 10:30:00 10:30:00 TONI [facility]IRRE [facility] 2022-05-04 2022-05-04 [facility] 1.2.840.114 [id number] Univers 00:00:00 00:00:00 Charles LOPEZ 350.1.13.10 i ty of [facility] 4.2.7.2.[place] [id number] [address] 2022-05-03 2022-05-03 [facility]phone [facility] 1.2.840.114 [id number] Univers 00:00:00 00:00:00 Charles LOPEZ 350.1.13.10 i ty [place] 4.2.7.2.[place] [facility] [phone] Co dical [facility] 044 [facility] 2022-05-03 2022-05-03 Orders Doctor PB 1.2.840.114 [id number] Univers 00:00:00 00:00:00 Only Unassigned, MOHINI 350.1.13.10 [facility] 4.2.7.2.686 Rishabh as [id number] [facility] [address] 2022-04-21 2022-04-21 [facility] [id number] Univers 09:40:00 09:40:00 CHARLES shazia [facility] 2022-03-25 2022-03-25 [facility] [id number] Univers 10:00:00 10:00:00 REBECCA shazia [facility] 2022-03-25 2022-03-25 [facility] [id number] Univers 08:40:00 08:40:00 CHARLES [facility] 2022-03-11 2022-03-11 Emergency [facility] ERT [id number] Univers 11:24:00 16:05:00 ANDRAE [facility] 2022-03-11 2022-03-11 Emergency [facility] 1.2.346.675 [id number] Univers 11:24:00 16:05:00 Andrae LOPEZ 350.1.13.10 i ty [place] 4.2.7.2.[place] [id number] [facility] [address] 2022-02-24 2022-02-24 [facility] [id number] Univers 08:20:00 08:20:00 CHARLES shazia [facility] 2022-02-23 2022-02-23 Transition AMAYA Dowd 1.2.840.114 [id number] Univers 00:00:00 00:00:00 of Candace MORELAND 350.1.13.10 it y of [place] [id number] [facility] [address] 2022-02-16 2022-02-19 Inpatient X MIGNON [facility] [id number] Univers 19:00:00 16:02:00 DEDE audie [facility] 2022-02-16 2022-02-19 [facility] Maria Ines Suarez [facility] 1.2.8 40.114 [id number] Univers 19:00:00 16:02:00 Encounter Kerry Leslie JOHN 350.1.13.10 ity Dede Crow C[place] 4.2.7.2.686 [facility] [id number] [facility] [address] [place] 2022-01-27 2022-01-27 Outpatient R KATHY [facility] [id number] Univers 10:00:00 11:43:37 CHARLES bronson [facility] 2022-01-27 2022-01-27 Office Kathy [facility] 1.2.840.114 [id number] Univers 10:00:00 11:43:37 Visit Charles LOPEZ 350.1.13.10 i ty of [place] 4.2.7.2.686 [place] ERWIN[place] [id number] [address] 2022-01-26 2022-01-26 Outpatient BETO AVELAR [facility] [id number] Univers 10:40:00 10:40:00 BETO HERNANDEZ [facility] 2022-01-05 2022-01-05 Outpatient BETO AVELAR [facility] [id number] Univers 16:20:00 16:20:00 BETO HERNANDEZ [facility] 2022-01-05 2022-01-05 Office GONZALES Caraballo 6410 1.2.840.114 [id number] [place] 13:00:00 14:25:16 Visit Colleen VO 350.1.13.58 [facility] 9.2.7.2.686 [id number] 2022-01-04 2022-01-04 Outpatient ILYA [facility] [id number] [place] 09:00:00 09:00:00 [facility] 2021-12-28 2021-12-28 [facility]phone [facility] 1.2.840.114 [id number] Univers 00:00:00 00:00:00 Chrales LOPEZ 350.1.13.10 i ty of [facility] 4.2.7.2.[place] [phone] Co dical NAL [address] [place] [address] 2021-12-28 2021-12-28 Orders Doctor PB 1.2.840.114 [id number] Univers 00:00:00 00:00:00 Only Unassigned, MOHINI 350.1.13.10 ity of [place] [facility] 4.2.7.2.686 Rishabh as [id number] [address] 2021-12-16 2021-12-16 Telephone [facility] 1.2.840.114 [id number] Univers 00:00:00 00:00:00 [facility] 350.1.13.10 ity of [place] 4.2.7.2.686 Rishabh as STEFFANIE?BLEA [id number] [address] OFFICE [facility] 2021-12-15 2021-12-15 [facility] [id number] Univers 11:00:00 12:44:29 CHARLES bronson [facility] 2021-12-15 2021-12-15 Office [facility] 1.2.840.114 [id number] Univers 11:00:00 12:44:29 Visit Charles LOPEZ 350.1.13.10 i ty [place].2.7.2.[place] [id number] Co dical NAL [address] [place] [address] 2021-12-02 2021-12-02 Telephone [facility] 1.2.840.114 [id number] Univers 00:00:00 00:00:00 Charles LOPEZ 350.1.13.10 i ty of [facility] 4.2.7.2.[place] [phone] Co dical NAL 044 [facility] 2021-11-17 2021-11-17 Transition AMAYA Dowd 1.2.840.114 [id number] Univers 00:00:00 00:00:00 of Care Barb MORELAND 350.1.13.10 it y of [place] 4.2.7.2.[place] [id number] [facility] [address] 2021-11-14 2021-11-16 Outpatient X [facility] [id number] Univers 15:18:00 14:35:00 SALLY bronson [facility] 2021-11-14 2021-11-16 [facility] Velasquez Blackwood [facility] 1.2.840.1 14 [id number] Univers 15:18:00 14:35:00 Encounter Sally Castro 350.1.13.10 it[place]2.7.2.[place] [id number] [facility] [address] 2021-10-30 2021-10-30 Outpatient R KATHY [facility] [id number] Univers 10:40:00 10:40:00 CHARLES bronson [facility] 2021-08-27 2021-08-27 Orders Doctor PB 1..840.114 [id number] Univers 00:00:00 00:00:00 Only Unassigned, MOHINI 350.1.13.10 ity of [place] [facility] 4.2.7.2.686 Rishabh as [id number] [facility] [address] 2021-08-20 2021-08-20 [facility]phone [facility] 1.2.840.114 [id number] Univers 00:00:00 00:00:00 Charles LOPEZ 350.1.13.10 i ty [place] 4.2.7.2.[place] [phone] Co dical NAL [address] [place] [address] 2021-08-02 2021-08-02 Refill [facility] 1.2.840.114 [id number] Univers 00:00:00 00:00:00 Charles LOPEZ 350.1.13.10 i ty [place] 4.2.7.2.[place] [id number] [address] 2021-08-02 2021-08-02 [facility] 1.2.840.114 [id number] Univers 00:00:00 00:00:00 Siria LOPEZ 350.1.13.10 ity of [facility] 4.2.7.2.[place] [phone] [address] 2021-07-31 2021-07-31 Office [facility] 1.2.840.114 [id number] Univers 13:20:00 14:24:40 Visit Charles LOPEZ 350.1.13.10 i ty [place] 4.2.7.2.[place] [id number] [address] 2021-07-31 2021-07-31 Outpatient R [facility] [id number] Univers 13:20:00 14:24:40 [facility] 2021-07-31 2021-07-31 Outpatient R [facility] [id number] Univers 13:20:00 13:20:00 [facility] 2021-07-15 2021-07-15 Outpatient R [facility] [id number] Univers 15:00:00 15:00:00 [facility] 2021-07-06 2021-07-06 Telephone [facility] 1..840.114 9 [id number] Univers 00:00:00 00:00:00 Charles LOPEZ 350.1.13.10 i ty of [facility] 4.2.7.2.[place] [id number] [address] 2021-06-04 2021-06-04 Transition AMAYA Dowd 1.2.840.114 [id number] Univers 00:00:00 00:00:00 of Candace MORELAND 350.1.13.10 it y of [place].2.[place] [id number] [address] 2021-06-01 2021-06-03 Outpatient X [facility] [id number] Univers 18:20:00 15:10:00 SALLY bronson [facility] 2021-06-01 2021-06-03 [facility] Tremayne Delgado [facility] 1.2.8 40.114 [id number] Univers 18:20:00 15:10:00 Encounter Adenike Morton 350.1.13.10 ity of [place] Sally [place] 4.2.7.2.686 [facility] [id number] [facility] [address] [place] 2021-05-28 2021-05-28 Outpatient R [facility] [id number] Univers 13:00:00 13:00:00 CHARLES bronson [facility] 2021-05-28 2021-05-28 Outpatient R [facility] [id number] Univers 13:00:00 13:00:00 CHARLES bronson [facility] 2021-05-21 2021-05-21 [facility] 1.2.840.114 [id number] Univers 00:00:00 00:00:00 Charles LOPEZ 350.1.13.10 i ty of [place] 4.2.7.2.686 [place] [facility] [phone] [facility] 044 [facility] 2021-05-11 2021-05-11 Outpatient R [facility] [id number] Univers 09:17:59 23:59:00 CHARLES bronson [facility] 2021-05-11 2021-05-11 [facility] 1.2.840.114 [id number] Univers 09:17:59 23:59:00 Encounter Charles LOPEZ 350.1.13.10 ity of [place] 4.2.7.2.686 [place] [id number] [facility] [address] 2021-05-11 2021-05-11 Orders Doctor AMBRIZ 1.2.840.114 [id number] Univers 00:00:00 00:00:00 Only Unassigned, MOHINI 350.1.13.10 ity of [place] [facility] 4.2.7.2.686 Rishabh as [id number] [address] 2021-05-08 2021-05-08 Outpatient R SHAVON CORTES [facility] [id number] Univers 10:00:00 10:00:00 SHAVON CORTES i ty of [facility] 2021-03-26 2021-03-26 Osvaldo Salinas [facility] 1.2.840.114 [id number] Univers 00:00:00 00:00:00 Management Rania HEALTH 350.1.13.10 ity of [place] 4.2.7.2.686 Rishabh as STEFFANIE?BLEA [phone] [address] MEDICAL OFFICE [facility] 2021-03-26 2021-03-26 Telephone Provider, [facility] 1.2.840.114 [id number] Univers 00:00:00 00:00:00 Ang Db HEALTH 350.1.13.10 it y of [facility] [place] 4.2.7.2.686 [place] STEFFANIE?BLEA [phone] [address] MEDICAL OFFICE [facility] 2021-03-25 2021-03-25 Telephone Provider, [facility] 1.2.840.114 [id number] Univers 00:00:00 00:00:00 Ang Db HEALTH 350.1.13.10 it y of [facility]gent [facility] [place] 4.2.7.2.686 [place] STEFFANIE?BLEA [id number] [address] OFFICE [facility] 2021-03-24 2021-03-24 Outpatient R [facility] [id number] Univers 15:23:49 23:59:00 MC floresy o f [facility] 2021-03-24 2021-03-[address] [facility] 1.2.367.128 [id number] Univers 15:23:49 23:59:00 Encounter Mc HEALTH 350.1.13.10 ity of [place] 4.2.7.2.686 Rishabh as STEFFANIE?BLEA [id number] [facility] [address] [place] MEDICAL OFFICE [facility] 2021-03-24 2021-03-[address] [facility] 1.2.840.114 [id number] Univers 15:20:00 15:28:44 Care Mc HEALTH 350.1.13.10 i ty [facility] 4.2.7.2.686 Rishabh as STEFFANIE?BLEA [id number] [address] MEDICAL OFFICE [facility] 2021-03-24 2021-03-24 [facility] [id number] Univers 15:23:49 15:23:49 MC ity o f [facility] 2021-03-24 2021-03-[address] [facility] 1.2.840.114 [id number] Univers 00:00:00 00:00:00 [facility] 350.1.13.10 i ty [facility] 4.2.7.2.686 Rishabh as STEFFANIE?BLEA [id number] [address] OFFICE [facility] 2021-02-26 2021-02-26 [facility] 1.2.840.114 [id number] Univers 00:00:00 00:00:00 Charles LOPEZ 350.1.13.10 i ty of [facility] 4.2.7.2.[place] [id number] [facility] 044 [facility] 2021-02-18 2021-02-18 Telephone [facility] 1.2.840.114 [id number] Univers 00:00:00 00:00:00 Charles LOPEZ 350.1.13.10 i ty of [place] 4.2.7.2.686 [place] [id number] [facility] NAL 044 [facility] 2020-12-17 2020-12-17 Transition Amaya Dowd 1.2.840.114 [id number] Univers 00:00:00 00:00:00 of Care Barb Moreland 350.1.13.10 it y of [place]2.7.2.[place] [id number] [address] 2020-12-12 2020-12-16 [facility] Gladys Pena [facility] 1.2.840.1 14 [id number] Univers 10:18:00 17:36:00 Encounter Sally Castro 350.1.13.10 ity of [place] 4[place]2.[place].2.686 [place] [id number] [address] 2020-12-12 2020-12-12 Outpatient [facility] [id number] Univers 10:20:00 10:20:00 CHARLES bronson [facility] [place] 2020-11-26 2020-11-26 Telephone [facility] 1.2.840.114 [id number] Univers 00:00:00 00:00:00 Charles Lopez 350.1.13.10 i ty [facility] 4.2.7.2.[place] [id number] [address] 2020-11-25 2020-11-25 [facility] 1.2.840.114 [id number] Univers 07:55:54 09:29:22 ne Visit Charles Lopez 350.1.13.10 ity [facility] 4.2.7.2.[place] [id number] [address] 2020-11-25 2020-11-25 Outpatient [facility] [id number] Univers 08:40:00 08:40:00 CHARLES audie [facility] [place] 2020-11-21 2020-11-21 [facility] 1.2.840.114 [id number] Univers 14:40:00 15:00:00 ne Visit Charles Lopez 350.1.13.10 ity [facility] 4.2.7.2.[place] [phone] [address] 2020-11-21 2020-11-21 Outpatient [facility] [id number] Univers 14:40:00 14:40:00 CHARLES audie [facility] [place] 2020-11-20 2020-11-20 [facility] 1.2.840.114 [id number] Univers 00:00:00 00:00:00 Siria Lopez 350.1.13.10 ity [facility] 4.2.7.2.[place] [phone] [address] 2020-10-06 2020-10-06 [facility] 1.2.840.114 [id number] Univers 00:00:00 00:00:00 Charles Lopez 350.1.13.10 i ty of [place] 4[place]2.[place].2.[place] [id number] [address] 2020-09-02 2020-09-02 Emergency Becky, K [facility] 1.2.840.114 [id number] Univers 11:02:00 12:35:00 Marie Lopez 350.1.13.10 i ty of [place] 4[place]2.[place].2.[place] [id number] [facility] [address] [place] 2020-09-02 2020-09-02 Orders Doctor PB 1.2.840.114 [id number] Univers 00:00:00 00:00:00 Only Unassigned, MOHINI 350.1.13.10 ity of [place] [facility] 4.2.7.2.686 Rishabh as [id number] [facility] [address] [place] 2020-08-08 2020-08-08 Orders Doctor PB 1.2.840.114 [id number] Univers 00:00:00 00:00:00 Only Unassigned, MOHINI 350.1.13.10 ity of [place] [facility] 4.2.7.2.686 Rishabh as [id number] [address] 2020-08-02 2020-08-02 [facility] 1.2.840.114 [id number] Univers 00:00:00 00:00:00 Charles Lopez 350.1.13.10 i ty of [place] 4.2.[place].2.[place] [phone] [address] 2020-06-05 2020-06-05 Outpatient R MARY [facility] [id number] Univers 12:30:00 12:30:00 MIGUEL ity of [facility] 2020-05-25 2020-05-25 Ref[facility]ha [facility] 1.2.840.114 [id number] Univers 00:00:00 00:00:00 Charles Lopez 350.1.13.10 i ty [facility] 4.2.7.2.686 [facility] [phone] Co dical [address] 2020-05-14 2020-05-14 Outpatient [facility] [id number] Univers 12:30:00 12:30:00 ity [facility] [place] 2020-04-02 2020-04-02 [facility] 1.2.840.114 [id number] Univers 09:20:00 23:59:00 Encounter Charles Lopez 350.1.13.10 ity [facility] 4.2.7.2.686 [facility] [id number] [facility] [address] 2020-04-02 2020-04-02 [facility] [id number] Univers 00:00:00 00:00:00 CHARLES bronson [facility] [place] 2020-04-02 2020-04-02 Orders Doctor PB 1.2.840.114 [id number] Univers 00:00:00 00:00:00 Only Unassigned, MOHINI [id number] ity of [place] [facility] 4.2.7.2.686 [facility] [id number] [facility] [address] 2020-03-12 2020-03-12 [facility] [id number] Univers 00:00:00 00:00:00 CHARLES shazai [facility] 2020-03-07 2020-03-07 Outpatient R [facility] [id number] Univers 15:20:00 15:20:00 CHARLES shazia [facility] 2020-02-27 2020-02-27 [id number] Univers 08:00:00 08:00:00 CHARLES bronson [facility] 2020-02-07 2020-02-07 Orders Doctor PB 1.2.840.114 [id number] Univers 00:00:00 00:00:00 Only UnassignedMOHINI [id number] ity of [place] [facility] [id number] Rishabh as [phone] [facility] [address] [place] 2020-02-01 2020-02-01 Telemedici [facility] 1.2.840.114 [id number] Univers 09:00:00 09:40:00 ne Visit Charles Lopez [id number] [id number] [id number] [address] 2020-02-01 2020-02-01 Outpatient R [facility] [id number] Univers 09:00:00 09:00:00 PETER ity of [facility] 2019-12-06 2019-12-06 Emergency [facility] [place] 1.2.840.114 [id number] Univers 15:03:00 18:31:00 Mihai Jose John [id number] i ty [id number] [phone] [place] [id number] [place] 2019-11-12 2019-11-12 Telephone [facility] 1.2.840.114 [id number] Univers 00:00:00 00:00:00 Charles Lopez [id number] i [id number] [phone] [address] 2019-11-09 2019-11-09 Orders Doctor PB 1.2.840.114 [id number] Univers 00:00:00 00:00:00 Only Unassigned, MOHINI [id number] ity of [facility] [id number] Rishabh as [phone] [address] 2019-10-22 2019-10-22 Telemedici [facility] 1.2.840.114 [id number] Univers 07:57:15 16:11:54 ne Visit Charles Lopez [id number] [id number] [phone] [address] 2019-10-22 2019-10-22 Outpatient R [facility] [facility] [id number] Univers 11:20:00 11:20:00 CHARLES ity of [facility] 2019-10-17 2019-10-17 [facility] 1.2.840[facility]114 [id number] Univers 00:00:00 00:00:00 Siria Lopez 350.1.13.10 [place] [phone] Co dical nal 044 [facility] 2019-10-15 2019-10-15 Telephone Lanza, [facility] 1.2.840.114 [id number] Univers 00:00:00 00:00:00 Siria Lopez 350.1.13.10 [place] [phone] Co dicmn nal 044 [facility] 2019-10-12 2019-10-12 Emergency Gladys Pena [facility] 1..840.114 [id number] Univers 10:12:00 13:58:00 Marie Lopez 350.1.13.10 i [place] [phone] [facility] [address] [place] 2019-10-12 2019-10-12 Orders Doctor PB 1.2.840.114 [id number] Univers 00:00:00 00:00:00 Only Unassigned, MOHINI 350.1.13.10 ity of [facility] 4.2.7.2.686 Rishabh as [phone] [facility] [address] 2019-09-10 2019-09-10 Outpatient Pepper, HCAWU SURG [id number] [facility] 07:30:00 07:30:[address] 2019-08-03 2019-08-03 [facility] 1.2.840.114 [id number] Univers 00:00:00 00:00:00 Siria Lopez 350.1.13.10 [place] of [place] [phone] Co dical nal 231 [facility] 2019-08-03 2019-08-[address] [facility] 1.2.840.114 [id number] 00:00:00 00:00:00 Siria Lopez 350.1.13.10 [place] 4.2.7.2.686 Professio [phone] [address] 2019-08-01 2019-08-01 Orders Doctor PB 1.2.840.114 [id number] Univers 00:00:00 00:00:00 Only Unassigned, MOHINI 350.1.13.10 ity of [facility] [facility] 4.2.7.2.686 Rishabh as [phone] [facility] [address] [place] 2019-08-01 2019-08-01 Orders Doctor PB 1.2.840.114 [id number] 00:00:00 00:00:00 Only Unassigned, MOHINI 350.1.13.10 [facility] 4.2.7.2.[phone] [facility] 2019-05-18 2019-05-18 [facility] [id number] Univers 09:00:00 09:00:00 CHARLES bronson [facility] 2019-04-19 2019-04-19 Office [facility] 1.2.840.114 [id number] Univers 09:05:50 10:51:43 Visit Charles Lopez 350.1.13.10 [place] [phone] Co dical [address] 2019-04-19 2019-04-19 Office [facility] 1.2.840.114 [id number] 09:05:50 10:51:43 Visit Charles Lopez 350.1.13.10 [place] 4.2.7.2.686 Professio [phone] [address] 2019-04-06 2019-04-06 Transition Amaya Torres 1.2.840.114 [id number] Univers 00:00:00 00:00:00 of Care Kit Moreland 350.1.13.10 ity of [place] [phone] [facility] [address] [place] 2019-04-02 2019-04-05 [facility] Gladys Pena [facility] 1.2.840.1 14 [id number] Univers 17:42:01 14:38:00 Encounter Adenike Morton 350.1.13.10 it[place] of [place] [phone] [address] 2019-02-23 2019-02-23 Outpatient R KATHY [facility] [id number] Univers 10:24:07 23:59:00 CHARLES shazia [facility] 2019-02-13 2019-02-13 Emergency X ARPITA, [facility] ERT [id number] Univers 12:18:43 15:07:00 CELY audie [facility] 2018-10-16 2018-10-16 Telephone Amaya Lanza 1.2.840.114 [id number] Univers 00:00:00 00:00:00 Siria Moreland 350.1.13.10 [place] of [place] [phone] [address] 2018-09-28 2018-09-28 Office ElliotChance [facility] 1.2.840.114 [id number] Univers 09:56:55 10:16:49 Visit Antonio John 350.1.13.10 i ty [place] [phone] Me dical nal 044 [facility] 2018-09-26 2018-09-26 [facility] 1.2.840.114 [id number] Univers 16:00:39 23:59:00 Encounter [facility] 350.1.13.10 ity of Surgical 4.2.7.2.686 Rishabh as Specialti [phone] Me dical es 809 [facility] 2018-09-26 2018-09-26 Office [facility] 1.2.840.114 [id number] Univers 15:41:42 16:08:43 Visit [facility] 350.1.13.10 it y of Surgical 4.2.7.2.686 Rishabh as Specialti [phone] Co dical es 198 [facility] Results Test Description Test Time Test Comments Results Result Comments Source N-TERMINAL PRO-BNP 2022-09-04 11:14:35 Test Item Value Reference Range Interpretation Comme nts NT-proBNP (test code = 6013945902) 6520 pg/mL <=125 H OTTO (test code = OTTO) Biotin has been reported to cause a negative bias, interpret results relative to patient's use of biotin. Lab Interpretation (test code = 97925-0) Abnormal [facility] METABOLIC PANEL (NA, K, CL, CO2, GLUCOSE, BUN, CREATININE, CA)2022-09-04 11:12:58 Test Item Value Reference Range Interpretation Comments NA (test code = 140 mmol/L 135-145 2974215239) K (test code = 3.6 mmol/L 3.5-5.0 1779727828) CL (test code = 99 mmol/L 98-108 6956713031) CO2 TOTAL (test code = 36 mmol/L 23-31 H 6926992682) AGAP (test code = 5 2-16 7886765598) BUN (test code = 20 mg/dL 7-23 3239042968) GLUCOSE (test code = 106 mg/dL 70-110 5258919074) CREATININE (test code = 1.04 mg/dL 0.50-1.04 2524089467) CALCIUM (test code = 8.2 mg/dL 8.6-10.6 L 9998429702) eGFR (test code = 53.3 mL/min/1.73m2 3036012697) OTTO (test code = OTTO) Association of Glomerular Filtration Rate (GFR) and Staging of Kidney Disease* + --+ --+ ------+| GFR (mL/min/1.73 m2) ?| With Kidney Damage ?| ?Without Kidney Damage+ --------+ --------+ +| ?>90 ?| ?Stage one ?| ? Normal ?+ ---+ ---+ -------+| ?60-89 ?| ?Stage two ?| ? Decreased GFR ? + --+ --+ ------+| ?30-59 ?| ?Stage three ?| ? Stage three ? + --+ --+ ------+| ?15-29 ?| ?Stage four ? | ? Stage four ?+ ---+ ---+ -------+| ?<15 (or dialysis) ? ?| ?Stage five ? | ? Stage five ?+ ---+ ---+ -------+ *Each stage assumes the associated GFR level has been in effect for at least three months. ?Stages 1 to 5, with or without kidney disease, indicate chronic kidney disease. Notes: Determination of stages one and two (with eGFR >59mL/min/1.73 m2) requires estimation of kidney damage for at least three months as defined by structural or functional abnormalities of the kidney, manifested by either:Pathological abnormalities or Markers of kidney damage (including abnormalities in the composition of the blood or urine or abnormalities in imaging tests). Lab Interpretation Abnormal (test code = 38518-2) [facility] WITH [id number] 11:02:36 Test Item Value Reference Range Interpretation Comments WBC (test code = 5.91 See_Comment [Automated 6690-2) message] The sy stem which generated this result transmitted reference range : 4.30 - 11.10 10*3/?L. The reference range was not used to interpret this result as normal/abnormal . RBC (test code = 3.92 See_Comment L [Automated 789-8) message] The sy stem which generated this result transmitted reference range : 3.93 - 5.25 10*6/?L. The reference range was not used to interpret this result as normal/abnormal . HGB (test code = 9.5 g/dL 11.6-15.0 L 718-7) HCT (test code = 32.1 % 35.7-45.2 L 4544-3) MCV (test code = 81.9 fL 80.6-95.5 787-2) MCH (test code = 24.2 pg 25.9-32.8 L 785-6) MCHC (test code = 29.6 g/dL 31.6-35.1 L 786-4) RDW-SD (test code = 58.7 fL 39.0-49.9 H 53182-3) RDW-CV (test code = 19.9 % 12.0-15.5 H 788-0) PLT (test code = 178 See_Comment [Automated 777-3) message] The sy stem which generated this result transmitted reference range : 166 - 358 10*3/ ?L. The reference r howie was not used to interpret this result as normal/abnormal . MPV (test code = 9.4 fL 9.5-12.9 L 72109-9) NRBC/100 WBC (test 0.0 See_Comment [Automat ed code = 1210263830) message] The system which generated this result transmitted reference range : 0.0 - 10.0 /100 WBCs. The refer ence range was not u sed to interpret th is result as normal/abnormal . NRBC x10^3 (test code See_Comment [Auto mated = 0084114189) message] The s ystem which generated this result transmitted reference range : 10*3/?L. The reference range was not used to interpret this result as normal/abnormal . GRAN MAT (NEUT) % 59.9 % (test code = 770-8) IMM GRAN % (test code 0.30 % = 8274903660) LYMPH % (test code = 22.0 % 736-9) MONO % (test code = 13.4 % 5905-5) EOS % (test code = 4.1 % 713-8) BASO % (test code = 0.3 % 706-2) GRAN MAT x10^3(ANC) 3.54 10*3/uL 1.88-7.09 (test code = 1377294883) IMM GRAN x10^3 (test 0.00-0.06 code = 3315574916) LYMPH x10^3 (test code 1.30 10*3/uL 1.32-3.29 L = 731-0) MONO x10^3 (test code 0.79 10*3/uL 0.33-0.92 = 742-7) EOS x10^3 (test code = 0.24 10*3/uL 0.03-0.39 711-2) BASO x10^3 (test code 0.01-0.07 = 704-7) Lab Interpretation Abnormal (test code = 07517-4) [facility] WITH [id number] 09:37:20 Test Item Value Reference Range Interpretation Comments WBC (test code = 5.88 See_Comment [Automated 6690-2) message] The sy stem which generated this result transmitted reference range : 4.30 - 11.10 10*3/?L. The reference range was not used to interpret this result as normal/abnormal . RBC (test code = 3.98 See_Comment [Automated 789-8) message] The sy stem which generated this result transmitted reference range : 3.93 - 5.25 10*6/?L. The reference range was not used to interpret this result as normal/abnormal . HGB (test code = 9.7 g/dL 11.6-15.0 L 718-7) HCT (test code = 32.3 % 35.7-45.2 L 4544-3) MCV (test code = 81.2 fL 80.6-95.5 787-2) MCH (test code = 24.4 pg 25.9-32.8 L 785-6) MCHC (test code = 30.0 g/dL 31.6-35.1 L 786-4) RDW-SD (test code = 57.8 fL 39.0-49.9 H 29599-4) RDW-CV (test code = 19.6 % 12.0-15.5 H 788-0) PLT (test code = 200 See_Comment [Automated 777-3) message] The sy stem which generated this result transmitted reference range : 166 - 358 10*3/ ?L. The reference r howie was not used to interpret this result as normal/abnormal . MPV (test code = 9.5 fL 9.5-12.9 12321-2) NRBC/100 WBC (test 0.0 See_Comment [Automat ed code = 4047361272) message] The system which generated this result transmitted reference range : 0.0 - 10.0 /100 WBCs. The refer ence range was not u sed to interpret th is result as normal/abnormal . NRBC x10^3 (test code See_Comment [Auto mated = 3871084738) message] The s ystem which generated this result transmitted reference range : 10*3/?L. The reference range was not used to interpret this result as normal/abnormal . GRAN MAT (NEUT) % 56.8 % (test code = 770-8) IMM GRAN % (test code 0.20 % = 6867871396) LYMPH % (test code = 21.4 % 736-9) MONO % (test code = 15.1 % 5905-5) EOS % (test code = 6.0 % 713-8) BASO % (test code = 0.5 % 706-2) GRAN MAT x10^3(ANC) 3.34 10*3/uL 1.88-7.09 (test code = 7420611471) IMM GRAN x10^3 (test 0.00-0.06 code = 2555854883) LYMPH x10^3 (test code 1.26 10*3/uL 1.32-3.29 L = 731-0) MONO x10^3 (test code 0.89 10*3/uL 0.33-0.92 = 742-7) EOS x10^3 (test code = 0.35 10*3/uL 0.03-0.39 711-2) BASO x10^3 (test code 0.03 10*3/uL 0.01-0.07 = 704-7) Lab Interpretation Abnormal (test code = 67847-8) [facility]. METABOLIC PANEL ([id number])2022-07-29 00:52:46 Test Item Value Reference Range Interpretation Comments NA (test code = 138 mmol/L 135-145 9157204055) K (test code = 5.8 mmol/L 3.5-5.0 H 8118981130) CL (test code = 106 mmol/L 98-108 8785583701) CO2 TOTAL (test code = 20 mmol/L 23-31 L 7665999836) AGAP (test code = 12 2-16 7031697257) BUN (test code = 21 mg/dL 7-23 8218154116) GLUCOSE (test code = 87 mg/dL 70-110 8940344719) CREATININE (test code = 0.99 mg/dL 0.50-1.04 7308139418) TOTAL BILI (test code = 1.3 mg/dL 0.1-1.1 H 1048432707) CALCIUM (test code = 9.3 mg/dL 8.6-10.6 3713806394) T PROTEIN (test code = 8.2 g/dL 6.3-8.2 2754612756) ALBUMIN (test code = 4.2 g/dL 3.5-5.0 8856244610) ALK PHOS (test code = 103 U/L 34-122 2082423011) ALTv (test code = 26 U/L 5-35 2-6) AST(SGOT) (test code = 43 U/L 13-40 H 8258944755) eGFR (test code = 56.5 mL/min/1.73m2 9795189258) OTTO (test code = OTTO) Association of Glomerular Filtration Rate (GFR) and Staging of Kidney Disease* + --+ --+ ------+| GFR (mL/min/1.73 m2) ?| With Kidney Damage ?| ?Without Kidney Damage+ --------+ --------+ +| ?>90 ?| ?Stage one ?| ? Normal ?+ ---+ ---+ -------+| ?60-89 ?| ?Stage two ?| ? Decreased GFR ? + --+ --+ ------+| ?30-59 ?| ?Stage three ?| ? Stage three ? + --+ --+ ------+| ?15-29 ?| ?Stage four ? | ? Stage four ?+ ---+ ---+ -------+| ?<15 (or dialysis) ? ?| ?Stage five ? | ? Stage five ?+ ---+ ---+ -------+ *Each stage assumes the associated GFR level has been in effect for at least three months. ?Stages 1 to 5, with or without kidney disease, indicate chronic kidney disease. Notes: Determination of stages one and two (with eGFR >59mL/min/1.73 m2) requires estimation of kidney damage for at least three months as defined by structural or functional abnormalities of the kidney, manifested by either:Pathological abnormalities or Markers of kidney damage (including abnormalities in the composition of the blood or urine or abnormalities in imaging tests). Lab Interpretation Abnormal (test code = 87377-4) [facility] 00[facility]52[facility]26 Test Item Value Reference Range Interpretation Comments LIPASE (test code = 0528242737) 70 U/L 0-220 Lab Interpretation (test code = Normal 81863-3) [facility] WITH [id number] 00:39:04 Test Item Value Reference Range Interpretation Comments WBC (test code = 6.26 See_Comment [Automated 6690-2) message] The sy stem which generated this result transmitted reference range : 4.30 - 11.10 10*3/?L. The reference range was not used to interpret this result as normal/abnormal . RBC (test code = 4.72 See_Comment [Automated 789-8) message] The sy stem which generated this result transmitted reference range : 3.93 - 5.25 10*6/?L. The reference range was not used to interpret this result as normal/abnormal . HGB (test code = 11.5 g/dL 11.6-15.0 L 718-7) HCT (test code = 38.6 % 35.7-45.2 4544-3) MCV (test code = 81.8 fL 80.6-95.5 787-2) MCH (test code = 24.4 pg 25.9-32.8 L 785-6) MCHC (test code = 29.8 g/dL 31.6-35.1 L 786-4) RDW-SD (test code = 58.8 fL 39.0-49.9 H 76736-1) RDW-CV (test code = 20.3 % 12.0-15.5 H 788-0) PLT (test code = 224 See_Comment [Automated 777-3) message] The sy stem which generated this result transmitted reference range : 166 - 358 10*3/ ?L. The reference r howie was not used to interpret this result as normal/abnormal . MPV (test code = 9.3 fL 9.5-12.9 L 49410-5) NRBC/100 WBC (test 0.0 See_Comment [Automat ed code = 7756072944) message] The system which generated this result transmitted reference range : 0.0 - 10.0 /100 WBCs. The refer ence range was not u sed to interpret th is result as normal/abnormal . NRBC x10^3 (test code See_Comment [Auto mated = 7770840232) message] The s ystem which generated this result transmitted reference range : 10*3/?L. The reference range was not used to interpret this result as normal/abnormal . GRAN MAT (NEUT) % 60.6 % (test code = 770-8) IMM GRAN % (test code 0.20 % = 8928686628) LYMPH % (test code = 24.1 % 736-9) MONO % (test code = 8.6 % 5905-5) EOS % (test code = 5.9 % 713-8) BASO % (test code = 0.6 % 706-2) GRAN MAT x10^3(ANC) 3.79 10*3/uL 1.88-7.09 (test code = 0236158587) IMM GRAN x10^3 (test 0.00-0.06 code = 2909245864) LYMPH x10^3 (test code 1.51 10*3/uL 1.32-3.29 = 731-0) MONO x10^3 (test code 0.54 10*3/uL 0.33-0.92 = 742-7) EOS x10^3 (test code = 0.37 10*3/uL 0.03-0.39 711-2) BASO x10^3 (test code 0.04 10*3/uL 0.01-0.07 = 704-7) Lab Interpretation Abnormal (test code = 24341-9) [facility] [id number] 03:07:53 Test Item Value Reference Range Interpretation Comments POCT Creatinine (test code = 1.2 mg/dL 0.5-1.1 H 7419004688) Lab Interpretation (test code = Abnormal 99846-0) [facility] [id number] 21:35:48 Test Item Value Reference Range Interpretation Comments TROPONIN I (test code = 0.026 ng/mL <=0.034 0264123115) OTTO (test code = OTTO) Reference (Normal) Range (defined by the 99th percentile reference limit): <= 0.034 ng/mL Note: Cardiac troponin begins to rise 3-4 hours after the onset of ischemia. Repeat in 4-6 hours if the sample was drawn within 3-4 hours of the onset of the symptom and found normal. Diagnosis of myocardial injury is made with acute changes in cTn concentrations with at least one serial sample above the 99th percentile upper reference limit (URL), taken together with the patient's clinical presentation. Biotin has been reported to cause a negative bias, interpret results relative to patient's use of biotin. Lab Interpretation Normal (test code = 01809-3) [facility] [id number] 21:32:45 Test Item Value Reference Range Interpretation Comments NT-proBNP (test code = 7400 pg/mL <=125 H 3032567184) OTTO (test code = OTTO) Biotin has been reported to cause a negative bias, interpret results relative to patient's use of biotin. Lab Interpretation (test Abnormal code = 72965-9) [facility]2023-03-30 21:24:01 Test Item Value Reference Range Interpretation Comments MAGNESIUM (test code = 0677340960) 1.4 mg/dL 1.7-2.4 L Lab Interpretation (test code = Abnormal 55400-5) [facility] METABOLIC PANEL ([id number])2022-05-27 21:23:41 Test Item Value Reference Range Interpretation Comments NA (test code = 136 mmol/L 135-145 7748247435) K (test code = 4.0 mmol/L 3.5-5.0 5666666371) CL (test code = 104 mmol/L 98-108 7747212448) CO2 TOTAL (test code = 21 mmol/L 23-31 L 7382812930) AGAP (test code = 11 2-16 8265019581) BUN (test code = 22 mg/dL 7-23 0116832973) GLUCOSE (test code = 103 mg/dL 70-110 5421569604) CREATININE (test code = 1.06 mg/dL 0.50-1.04 H 3029756037) TOTAL BILI (test code = 1.0 mg/dL 0.1-1.6 0515746355) CALCIUM (test code = 8.8 mg/dL 8.6-10.6 7347420731) T PROTEIN (test code = 6.9 g/dL 6.3-8.2 7842799843) ALBUMIN (test code = 3.4 g/dL 3.5-5.0 L 1661690964) ALK PHOS (test code = 109 U/L 34-122 2101477702) ALTv (test code = 23 U/L 5-35 1742-6) AST(SGOT) (test code = 31 U/L 13-40 9026861258) eGFR (test code = 52.4 mL/min/1.73m2 7395971948) OTTO (test code = OTTO) Association of Glomerular Filtration Rate (GFR) and Staging of Kidney Disease* + --+ --+ ------+| GFR (mL/min/1.73 m2) ?| With Kidney Damage ?| ?Without Kidney Damage+ --------+ --------+ +| ?>90 ?| ?Stage one ?| ? Normal ?+ ---+ ---+ -------+| ?60-89 ?| ?Stage two ?| ? Decreased GFR ? + --+ --+ ------+| ?30-59 ?| ?Stage three ?| ? Stage three ? + --+ --+ ------+| ?15-29 ?| ?Stage four ? | ? Stage four ?+ ---+ ---+ -------+| ?<15 (or dialysis) ? ?| ?Stage five ? | ? Stage five ?+ ---+ ---+ -------+ *Each stage assumes the associated GFR level has been in effect for at least three months. ?Stages 1 to 5, with or without kidney disease, indicate chronic kidney disease. Notes: Determination of stages one and two (with eGFR >59mL/min/1.73 m2) requires estimation of kidney damage for at least three months as defined by structural or functional abnormalities of the kidney, manifested by either:Pathological abnormalities or Markers of kidney damage (including abnormalities in the composition of the blood or urine or abnormalities in imaging tests). Lab Interpretation Abnormal (test code = 16649-2) [facility] WITH [id number] 21:11:00 Test Item Value Reference Range Interpretation Comments WBC (test code = 6.51 See_Comment [Automated 6495-2) message] The sy stem which generated this result transmitted reference range : 4.30 - 11.10 10*3/?L. The reference range was not used to interpret this result as normal/abnormal . RBC (test code = 4.26 See_Comment [Automated 043-7) message] The sy stem which generated this result transmitted reference range : 3.93 - 5.25 10*6/?L. The reference range was not used to interpret this result as normal/abnormal . HGB (test code = 10.8 g/dL 11.6-15.0 L 718-7) HCT (test code = 35.1 % 35.7-45.2 L 4544-3) MCV (test code = 82.4 fL 80.6-95.5 787-2) MCH (test code = 25.4 pg 25.9-32.8 L 785-6) MCHC (test code = 30.8 g/dL 31.6-35.1 L 786-4) RDW-SD (test code = 53.5 fL 39.0-49.9 H 87746-4) RDW-CV (test code = 18.6 % 12.0-15.5 H 788-0) PLT (test code = 235 See_Comment [Automated 777-3) message] The sy stem which generated this result transmitted reference range : 166 - 358 10*3/ ?L. The reference r howie was not used to interpret this result as normal/abnormal . MPV (test code = 9.3 fL 9.5-12.9 L 23120-1) NRBC/100 WBC (test 0.9 See_Comment [Automat ed code = 6582986153) message] The system which generated this result transmitted reference range : 0.0 - 10.0 /100 WBCs. The refer ence range was not u sed to interpret th is result as normal/abnormal . NRBC x10^3 (test code 0.06 See_Comment [Auto mated = 4710209778) message] The s ystem which generated this result transmitted reference range : 10*3/?L. The reference range was not used to interpret this result as normal/abnormal . GRAN MAT (NEUT) % 68.7 % (test code = 770-8) IMM GRAN % (test code 0.50 % = 4035620854) LYMPH % (test code = 16.0 % 736-9) MONO % (test code = 9.4 % 5905-5) EOS % (test code = 4.8 % 713-8) BASO % (test code = 0.6 % 706-2) GRAN MAT x10^3(ANC) 4.48 10*3/uL 1.88-7.09 (test code = 2682237562) IMM GRAN x10^3 (test 0.03 10*3/uL 0.00-0.06 code = 1355803627) LYMPH x10^3 (test code 1.04 10*3/uL 1.32-3.29 L = 731-0) MONO x10^3 (test code 0.61 10*3/uL 0.33-0.92 = 742-7) EOS x10^3 (test code = 0.31 10*3/uL 0.03-0.39 711-2) BASO x10^3 (test code 0.04 10*3/uL 0.01-0.07 = 704-7) Lab Interpretation Abnormal (test code = 96753-9) [facility] METABOLIC PANEL (NA, K, CL, CO2, GLUCOSE, BUN, CREATININE, CA)2022-02-19 10:56:47 Test Item Value Reference Range Interpretation Comments NA (test code = 136 mmol/L 135-145 3895624168) K (test code = 3.3 mmol/L 3.5-5.0 L 4425030623) CL (test code = 99 mmol/L 98-108 6481792969) CO2 TOTAL (test code = 30 mmol/L 23-31 8221338192) AGAP (test code = 2-16 6867844184) BUN (test code = 23 mg/dL 7-23 2024778204) GLUCOSE (test code = 130 mg/dL 70-110 H 9084948119) CREATININE (test code = 1.23 mg/dL 0.50-1.04 H 7036152253) CALCIUM (test code = 8.9 mg/dL 8.6-10.6 6704637946) eGFR (test code = mL/min/1.73m2 4351493143) OTTO (test code = OTTO) Association of Glomerular Filtration Rate (GFR) and Staging of Kidney Disease* + --+ --+ ------+| GFR (mL/min/1.73 m2) ?| With Kidney Damage ?| ?Without Kidney Damage+ --------+ --------+ +| ?>90 ?| ?Stage one ?| ? Normal ?+ ---+ ---+ -------+| ?60-89 ?| ?Stage two ?| ? Decreased GFR ? + --+ --+ ------+| ?30-59 ?| ?Stage three ?| ? Stage three ? + --+ --+ ------+| ?15-29 ?| ?Stage four ? | ? Stage four ?+ ---+ ---+ -------+| ?<15 (or dialysis) ? ?| ?Stage five ? | ? Stage five ?+ ---+ ---+ -------+ *Each stage assumes the associated GFR level has been in effect for at least three months. ?Stages 1 to 5, with or without kidney disease, indicate chronic kidney disease. Notes: Determination of stages one and two (with eGFR >59mL/min/1.73 m2) requires estimation of kidney damage for at least three months as defined by structural or functional abnormalities of the kidney, manifested by either:Pathological abnormalities or Markers of kidney damage (including abnormalities in the composition of the blood or urine or abnormalities in imaging tests). Lab Interpretation Abnormal (test code = 17375-8) [facility] WITH [id number] 10:19:43 Test Item Value Reference Range Interpretation Comments WBC (test code = See_Comment H [Automated 6690-2) message] The system which generated this result transmit emma reference range : 4.30 - 11.10 10*3/?L. The reference range was not used to interpret this result as normal/abnormal . RBC (test code = See_Comment L [Automated 789-8) message] The system which generated this result transmit emma reference range : 3.93 - 5.25 10*6/?L. The reference range was not used to interpret this result as normal/abnormal . HGB (test code = 10.3 g/dL 11.6-15.0 L 718-7) HCT (test code = 32.5 % 35.7-45.2 L 4544-3) MCV (test code = 84.9 fL 80.6-95.5 787-2) MCH (test code = 26.9 pg 25.9-32.8 785-6) MCHC (test code = 31.7 g/dL 31.6-35.1 786-4) RDW-SD (test code = 50.7 fL 39.0-49.9 H 12141-2) RDW-CV (test code = 16.3 % 12.0-15.5 H 788-0) PLT (test code = See_Comment [Automated 777-3) message] The system which generated this result transmit emma reference range : 166 - 358 10*3/ ?L. The reference range was not u sed to interpret th is result as normal/abnormal . MPV (test code = 10.1 fL 9.5-12.9 55306-8) NRBC/100 WBC (test See_Comment [Automat ed code = 3521526903) message] The system which generated this result transmit emma reference range : 0.0 - 10.0 /100 WBCs. The reference range was not used to interpret this result as normal/abnormal . NRBC x10^3 (test code See_Comment [Auto mated = 0885228745) message] The system which generated this result transmit emma reference range : 10*3/?L. The reference range was not used to interpret this result as normal/abnormal . GRAN MAT (NEUT) % 89.0 % (test code = 770-8) IMM GRAN % (test code 0.90 % = 2632850524) LYMPH % (test code = 2.8 % 736-9) MONO % (test code = 7.2 % 5905-5) EOS % (test code = 0.0 % 713-8) BASO % (test code = 0.1 % 706-2) GRAN MAT x10^3(ANC) 14.49 10*3/uL 1.88-7.09 H (test code = 2408126353) IMM GRAN x10^3 (test 0.14 10*3/uL 0.00-0.06 H code = 7755238932) LYMPH x10^3 (test code 0.46 10*3/uL 1.32-3.29 L = 731-0) MONO x10^3 (test code 1.17 10*3/uL 0.33-0.92 H = 742-7) EOS x10^3 (test code = 0.03-0.39 L 711-2) BASO x10^3 (test code 0.01-0.07 = 704-7) Lab Interpretation Abnormal (test code = 20344-2) [facility] WITH [id number] 12:15:43 Test Item Value Reference Range Interpretation Comments WBC (test code = See_Comment H [Automated 6690-2) message] The system which generated this result transmit emma reference range : 4.30 - 11.10 10*3/?L. The reference range was not used to interpret this result as normal/abnormal . RBC (test code = See_Comment L [Automated 789-8) message] The system which generated this result transmit emma reference range : 3.93 - 5.25 10*6/?L. The reference range was not used to interpret this result as normal/abnormal . HGB (test code = 10.7 g/dL 11.6-15.0 L 718-7) HCT (test code = 33.1 % 35.7-45.2 L 4544-3) MCV (test code = 84.4 fL 80.6-95.5 787-2) MCH (test code = 27.3 pg 25.9-32.8 785-6) MCHC (test code = 32.3 g/dL 31.6-35.1 786-4) RDW-SD (test code = 50.4 fL 39.0-49.9 H 40125-0) RDW-CV (test code = 16.3 % 12.0-15.5 H 788-0) PLT (test code = See_Comment L [Automated 777-3) message] The system which generated this result transmit emma reference range : 166 - 358 10*3/ ?L. The reference range was not u sed to interpret th is result as normal/abnormal . MPV (test code = 9.7 fL 9.5-12.9 12388-6) NRBC/100 WBC (test See_Comment [Automat ed code = 8118066687) message] The system which generated this result transmit emma reference range : 0.0 - 10.0 /100 WBCs. The reference range was not used to interpret this result as normal/abnormal . NRBC x10^3 (test code See_Comment [Auto mated = 5870656631) message] The system which generated this result transmit emma reference range : 10*3/?L. The reference range was not used to interpret this result as normal/abnormal . GRAN MAT (NEUT) % 91.5 % (test code = 770-8) IMM GRAN % (test code 0.50 % = 3962076368) LYMPH % (test code = 3.5 % 736-9) MONO % (test code = 4.4 % 5905-5) EOS % (test code = 0.0 % 713-8) BASO % (test code = 0.1 % 706-2) GRAN MAT x10^3(ANC) 15.86 10*3/uL 1.88-7.09 H (test code = 9126218885) IMM GRAN x10^3 (test 0.09 10*3/uL 0.00-0.06 H code = 6033964815) LYMPH x10^3 (test code 0.60 10*3/uL 1.32-3.29 L = 731-0) MONO x10^3 (test code 0.76 10*3/uL 0.33-0.92 = 742-7) EOS x10^3 (test code = 0.03-0.39 L 711-2) BASO x10^3 (test code 0.01-0.07 = 704-7) Lab Interpretation Abnormal (test code = 12319-6) [facility] METABOLIC PANEL (NA, K, CL, CO2, GLUCOSE, BUN, CREATININE, CA)2022-02-18 11:31:39 Test Item Value Reference Range Interpretation Comments NA (test code = 138 mmol/L 135-145 1328790077) K (test code = 3.5 mmol/L 3.5-5.0 7582993260) CL (test code = 100 mmol/L 98-108 5255422531) CO2 TOTAL (test code = 31 mmol/L 23-31 5188589133) AGAP (test code = 2-16 8234679254) BUN (test code = 19 mg/dL 7-23 7629581544) GLUCOSE (test code = 145 mg/dL 70-110 H 1143668423) CREATININE (test code = 1.09 mg/dL 0.50-1.04 H 2380827034) CALCIUM (test code = 8.9 mg/dL 8.6-10.6 0021313840) eGFR (test code = mL/min/1.73m2 0883741042) OTTO (test code = OTTO) Association of Glomerular Filtration Rate (GFR) and Staging of Kidney Disease* + --+ --+ ------+| GFR (mL/min/1.73 m2) ?| With Kidney Damage ?| ?Without Kidney Damage+ --------+ --------+ +| ?>90 ?| ?Stage one ?| ? Normal ?+ ---+ ---+ -------+| ?60-89 ?| ?Stage two ?| ? Decreased GFR ? + --+ --+ ------+| ?30-59 ?| ?Stage three ?| ? Stage three ? + --+ --+ ------+| ?15-29 ?| ?Stage four ? | ? Stage four ?+ ---+ ---+ -------+| ?<15 (or dialysis) ? ?| ?Stage five ? | ? Stage five ?+ ---+ ---+ -------+ *Each stage assumes the associated GFR level has been in effect for at least three months. ?Stages 1 to 5, with or without kidney disease, indicate chronic kidney disease. Notes: Determination of stages one and two (with eGFR >59mL/min/1.73 m2) requires estimation of kidney damage for at least three months as defined by structural or functional abnormalities of the kidney, manifested by either:Pathological abnormalities or Markers of kidney damage (including abnormalities in the composition of the blood or urine or abnormalities in imaging tests). Lab Interpretation Abnormal (test code = 67057-9) [facility] 17:27:24 Test Item Value Reference Interpretation Comments Range Procalcitonin (test 0.06 ng/mL See_Comment [Automa emma code = 2934940837) message] The system which generated this result transmitted reference range: <=0.07. The reference range was not used to interpret this result as normal/abnormal . OTTO (test code = INTERPRETATION OF OTTO) PROCALCITONIN RESULTS IN ADULTS >= 18 YEARS OF AGE Initiation and discontinuation of antibiotics on patients with suspected or confirmed Lower Respiratory Tract Infection in Adults >= 18 years of age. + +------ + ----+ +|Procalcit onin |Interpretation ?|Antibiotic ? ? |Considerations ? |ng/mL ? | ?|recommendation | ? + +------ + ----+ +| <0.1 ? | Bacterial ? ? ?| Strongly ? ? ?| ? | ?| infection very | discouraged ? | Overruling: ? | ?| unlikely ? ? ? | ? | ? Clinically unstable ? ? ? + +------ + ----+ ? High risk for adverse ? ? | <0.25 ?| Bacterial ? ? ?| Discouraged ? | ? outcome ? | ?| infection ? ? ?| ? | ? SEE IMPORTANT NOTE ?| ?| unlikely ? ? ? | ? | ? + +------ + ----+ +| >=0.25 ? ? ? | Bacterial ? ? ?| Encouraged ? ?| ? | ?| infection ? ? ?| ? | ? | ?| likely ? | ? | Consider treatment failure ?+ +----- + -----+ if levels does not decrease | >0.5 ? | Bacterial ? ? ?| Strongly ? ? ?| appropriately ? | ?| infection very | encouraged ? ?| ? | ?| likely ? | ? | ? + +------ + ----+ + Discontinuation of antibiotics in high-acuity patients with suspected or confirmed sepsis in Adults >= 18 years of age. + +------ + ----+ +|Procalcit onin |Interpretation ?|Antibiotic ? ? |Considerations ? |ng/mL ? | ?|recommendation | ? + +------ + ----+ +| <0.25 ?| Bacterial ? ? ?| Strongly ? ? ?| ? | ?| infection very | discouraged ? | Overruling: ? | ?| unlikely ? ? ? | ? | ? Clinically unstable ? ? ? + +------ + ----+ ? High risk for adverse ? ? | <0.5 or drop | Bacterial ? ? ?| Discouraged ? | ? outcome ? | >80% from ? ?| infection ? ? ?| ? | ? SEE IMPORTANT NOTE ?| highest PCT ?| unlikely ? ? ? | ? | ? | level ?| ?| ? | ? + +------ + ----+ +| >=0.5 ?| Bacterial ? ? ?| Encouraged ? ?| ? | ?| infection ? ? ?| ? | ? | ?| likely ? | ? | Consider treatment failure ?+ +----- + -----+ if levels does not decrease | >1.0 ? | Bacterial ? ? ?| Strongly ? ? ?| appropriately ? | ?| infection very | encouraged ? ?| ? | ?| likely ? | ? | ? + +------ + ----+ + Percentage of drop of Procalcitonin calculation for Discontinuation of antibiotics in high-acuity patients with suspected or confirmed sepsis in Adults >= 18 years of age. ? Procalcitonin highest{}-Procalcitoni n current{}Delta Procalcitonin = ___ x100% ? Procalcitonin current {} IMPORTANT NOTE: Procalcitonin may be elevated without bacterial infection by physiologic stress related to trauma, de jesus, chronic dialysis, metastatic cancer, surgery in the past seven days, malaria, some fungal infections, and some forms of vasculitis. The interpretation algorithm may not apply to patients with immunosuppression (equivalent of >10 mg of prednisone daily), HIV with CD4 cell count < 350 cells/mm3, active malignancy on systemic chemotherapy, solid organ transplant or hematopoietic stem cell transplantation, or hospital acquired pneumonia. Additionally, some clinical trials of procalcitonin have excluded patients with shock requiring vasopressor use, acute respiratory failure requiring mechanical ventilation, or those with known lung abscess/empyema. For further information please refer to:[email or web address] Lab Interpretation Normal (test code = 80554-9) [facility] [id number] 15:10:53 Test Item Value Reference Interpretation Comments Range TROPONIN I (test 0.032 ng/mL See_Comment [Automated code = 4088112667) message] The system which generated this result transmitted reference range : <=0.034. The reference range was not used to interpret this result as normal/abnormal . OTTO (test code = Reference (Normal) OTTO) Range (defined by the 99th percentile reference limit): <= 0.034 ng/mL Note: Cardiac troponin begins to rise 3-4 hours after the onset of ischemia. Repeat in 4-6 hours if the sample was drawn within 3-4 hours of the onset of the symptom and found normal. Diagnosis of myocardial injury is made with acute changes in cTn concentrations with at least one serial sample above the 99th percentile upper reference limit (URL), taken together with the patient's clinical presentation. Biotin has been reported to cause a negative bias, interpret results relative to patient's use of biotin. Lab Interpretation Normal (test code = 89974-4) [facility] [id number] 15:07:31 Test Item Value Reference Range Interpretation Comments NT-proBNP (test code 4390 pg/mL See_Comment H [Autom ated = 4997163378) message] The system which generated this result transmitted reference range : <=125. The reference range was not used to interpret this result as normal/abnormal . OTTO (test code = OTTO) Biotin has been reported to cause a negative bias, interpret results relative to patient's use of biotin. Lab Interpretation Abnormal (test code = 92216-3) [facility] with [id number] 10:57:14 Test Item Value Reference Range Interpretation Comments WBC (test code = See_Comment H [Automated 6690-2) message] The system which generated this result transmit emma reference range : 4.30 - 11.10 10*3/?L. The reference range was not used to interpret this result as normal/abnormal . RBC (test code = See_Comment [Automated 789-8) message] The system which generated this result transmit emma reference range : 3.93 - 5.25 10*6/?L. The reference range was not used to interpret this result as normal/abnormal . HGB (test code = 11.2 g/dL 11.6-15.0 L 718-7) HCT (test code = 35.4 % 35.7-45.2 L 4544-3) MCV (test code = 85.7 fL 80.6-95.5 787-2) MCH (test code = 27.1 pg 25.9-32.8 785-6) MCHC (test code = 31.6 g/dL 31.6-35.1 786-4) RDW-SD (test code = 49.8 fL 39.0-49.9 29277-1) RDW-CV (test code = 16.2 % 12.0-15.5 H 788-0) PLT (test code = See_Comment [Automated 777-3) message] The system which generated this result transmit emma reference range : 166 - 358 10*3/ ?L. The reference range was not u sed to interpret th is result as normal/abnormal . MPV (test code = 10.0 fL 9.5-12.9 95410-1) NRBC/100 WBC (test See_Comment [Automat ed code = 3759253772) message] The system which generated this result transmit emma reference range : 0.0 - 10.0 /100 WBCs. The reference range was not used to interpret this result as normal/abnormal . NRBC x10^3 (test code See_Comment [Auto mated = 5206025414) message] The system which generated this result transmit emma reference range : 10*3/?L. The reference range was not used to interpret this result as normal/abnormal . GRAN MAT (NEUT) % 93.6 % (test code = 770-8) IMM GRAN % (test code 0.40 % = 3920136059) LYMPH % (test code = 3.8 % 736-9) MONO % (test code = 1.9 % 5905-5) EOS % (test code = 0.0 % 713-8) BASO % (test code = 0.3 % 706-2) GRAN MAT x10^3(ANC) 10.71 10*3/uL 1.88-7.09 H (test code = 9485535935) IMM GRAN x10^3 (test 0.05 10*3/uL 0.00-0.06 code = 2651149382) LYMPH x10^3 (test code 0.43 10*3/uL 1.32-3.29 L = 731-0) MONO x10^3 (test code 0.22 10*3/uL 0.33-0.92 L = 742-7) EOS x10^3 (test code = 0.03-0.39 L 711-2) BASO x10^3 (test code 0.03 10*3/uL 0.01-0.07 = 704-7) Lab Interpretation Abnormal (test code = 00006-6) [facility] Metabolic Panel (NA, K, CL, CO2, GLUCOSE, BUN, CREATININE, CA)2022-02-17 10:53:12 Test Item Value Reference Range Interpretation Comments NA (test code = 138 mmol/L 135-145 0857661429) K (test code = 3.5 mmol/L 3.5-5.0 5356213124) CL (test code = 103 mmol/L 98-108 0198720059) CO2 TOTAL (test code = 25 mmol/L 23-31 2659986209) AGAP (test code = 2-16 3124899487) BUN (test code = 18 mg/dL 7-23 2493451080) GLUCOSE (test code = 140 mg/dL 70-110 H 2109315134) CREATININE (test code = 1.23 mg/dL 0.50-1.04 H 6365073953) CALCIUM (test code = 9.0 mg/dL 8.6-10.6 7785559084) eGFR (test code = mL/min/1.73m2 9368762790) OTTO (test code = OTTO) Association of Glomerular Filtration Rate (GFR) and Staging of Kidney Disease* + --+ --+ ------+| GFR (mL/min/1.73 m2) ?| With Kidney Damage ?| ?Without Kidney Damage+ --------+ --------+ +| ?>90 ?| ?Stage one ?| ? Normal ?+ ---+ ---+ -------+| ?60-89 ?| ?Stage two ?| ? Decreased GFR ? + --+ --+ ------+| ?30-59 ?| ?Stage three ?| ? Stage three ? + --+ --+ ------+| ?15-29 ?| ?Stage four ? | ? Stage four ?+ ---+ ---+ -------+| ?<15 (or dialysis) ? ?| ?Stage five ? | ? Stage five ?+ ---+ ---+ -------+ *Each stage assumes the associated GFR level has been in effect for at least three months. ?Stages 1 to 5, with or without kidney disease, indicate chronic kidney disease. Notes: Determination of stages one and two (with eGFR >59mL/min/1.73 m2) requires estimation of kidney damage for at least three months as defined by structural or functional abnormalities of the kidney, manifested by either:Pathological abnormalities or Markers of kidney damage (including abnormalities in the composition of the blood or urine or abnormalities in imaging tests). Lab Interpretation Abnormal (test code = 35755-5) [facility] [id number] 02:00:35 Test Item Value Reference Interpretation Comments Range TROPONIN I (test 0.039 ng/mL See_Comment H [Automated code = 7597072134) message] The system which generated this result transmitted reference range : <=0.034. The reference range was not used to interpret this result as normal/abnormal . OTTO (test code = Reference (Normal) OTTO) Range (defined by the 99th percentile reference limit): <= 0.034 ng/mL Note: Cardiac troponin begins to rise 3-4 hours after the onset of ischemia. Repeat in 4-6 hours if the sample was drawn within 3-4 hours of the onset of the symptom and found normal. Diagnosis of myocardial injury is made with acute changes in cTn concentrations with at least one serial sample above the 99th percentile upper reference limit (URL), taken together with the patient's clinical presentation. Biotin has been reported to cause a negative bias, interpret results relative to patient's use of biotin. Lab Interpretation Abnormal (test code = 87830-8) [facility] [id number] 01:57:33 Test Item Value Reference Range Interpretation Comments NT-proBNP (test code 5680 pg/mL See_Comment H [Autom ated = 9544238486) message] The system which generated this result transmitted reference range : <=125. The reference range was not used to interpret this result as normal/abnormal . OTTO (test code = OTTO) Biotin has been reported to cause a negative bias, interpret results relative to patient's use of biotin. Lab Interpretation Abnormal (test code = 76419-7) [facility] WITH [id number] 01:51:00 Test Item Value Reference Range Interpretation Comments WBC (test code = See_Comment H [Automated 2590-2) message] The sy stem which generated this result transmitted reference range : 4.30 - 11.10 10*3/?L. The reference range was not used to interpret this result as normal/abnormal . RBC (test code = See_Comment [Automated 789-8) message] The sy stem which generated this result transmitted reference range : 3.93 - 5.25 10*6/?L. The reference range was not used to interpret this result as normal/abnormal . HGB (test code = 11.8 g/dL 11.6-15.0 718-7) HCT (test code = 37.7 % 35.7-45.2 4544-3) MCV (test code = 85.7 fL 80.6-95.5 787-2) MCH (test code = 26.8 pg 25.9-32.8 785-6) MCHC (test code = 31.3 g/dL 31.6-35.1 L 786-4) RDW-SD (test code = 50.4 fL 39.0-49.9 H 37811-8) RDW-CV (test code = 16.0 % 12.0-15.5 H 788-0) PLT (test code = See_Comment [Automated 777-3) message] The sy stem which generated this result transmitted reference range : 166 - 358 10*3/ ?L. The reference r howie was not used to interpret this result as normal/abnormal . MPV (test code = 10.1 fL 9.5-12.9 82832-2) NRBC/100 WBC (test See_Comment [Automat ed code = 9483468355) message] The system which generated this result transmitted reference range : 0.0 - 10.0 /100 WBCs. The refer ence range was not u sed to interpret th is result as normal/abnormal . NRBC x10^3 (test code See_Comment [Auto mated = 5187269375) message] The s ystem which generated this result transmitted reference range : 10*3/?L. The reference range was not used to interpret this result as normal/abnormal . GRAN MAT (NEUT) % 81.3 % (test code = 770-8) IMM GRAN % (test code 0.50 % = 9317647368) LYMPH % (test code = 7.0 % 736-9) MONO % (test code = 8.2 % 5905-5) EOS % (test code = 2.8 % 713-8) BASO % (test code = 0.2 % 706-2) GRAN MAT x10^3(ANC) 9.70 10*3/uL 1.88-7.09 H (test code = 8639769714) IMM GRAN x10^3 (test 0.06 10*3/uL 0.00-0.06 code = 0704161921) LYMPH x10^3 (test code 0.84 10*3/uL 1.32-3.29 L = 731-0) MONO x10^3 (test code 0.98 10*3/uL 0.33-0.92 H = 742-7) EOS x10^3 (test code = 0.33 10*3/uL 0.03-0.39 711-2) BASO x10^3 (test code 0.01-0.07 = 704-7) Lab Interpretation Abnormal (test code = 02063-0) [facility]OL[facility] ([id number])2022-02-17 01:49:17 Test Item Value Reference Range Interpretation Comments NA (test code = 139 mmol/L 135-145 3960421346) K (test code = 4.0 mmol/L 3.5-5.0 8051226489) CL (test code = 103 mmol/L 98-108 7201508365) CO2 TOTAL (test code = 28 mmol/L 23-31 0699713166) AGAP (test code = 2-16 5030330279) BUN (test code = 20 mg/dL 7-23 3439758113) GLUCOSE (test code = 102 mg/dL 70-110 3141923446) CREATININE (test code = 1.12 mg/dL 0.50-1.04 H 0415401418) TOTAL BILI (test code = 0.7 mg/dL 0.1-1.3 4001596976) CALCIUM (test code = 9.1 mg/dL 8.6-10.6 9731200587) T PROTEIN (test code = 7.5 g/dL 6.3-8.2 9661447186) ALBUMIN (test code = 4.1 g/dL 3.5-5.0 0527321023) ALK PHOS (test code = 91 U/L 34-122 0897068077) ALTv (test code = 30 U/L 5-35 2-6) AST(SGOT) (test code = 33 U/L 13-40 2513143806) eGFR (test code = mL/min/1.73m2 0659615117) OTTO (test code = OTTO) Association of Glomerular Filtration Rate (GFR) and Staging of Kidney Disease* + --+ --+ ------+| GFR (mL/min/1.73 m2) ?| With Kidney Damage ?| ?Without Kidney Damage+ --------+ --------+ +| ?>90 ?| ?Stage one ?| ? Normal ?+ ---+ ---+ -------+| ?60-89 ?| ?Stage two ?| ? Decreased GFR ? + --+ --+ ------+| ?30-59 ?| ?Stage three ?| ? Stage three ? + --+ --+ ------+| ?15-29 ?| ?Stage four ? | ? Stage four ?+ ---+ ---+ -------+| ?<15 (or dialysis) ? ?| ?Stage five ? | ? Stage five ?+ ---+ ---+ -------+ *Each stage assumes the associated GFR level has been in effect for at least three months. ?Stages 1 to 5, with or without kidney disease, indicate chronic kidney disease. Notes: Determination of stages one and two (with eGFR >59mL/min/1.73 m2) requires estimation of kidney damage for at least three months as defined by structural or functional abnormalities of the kidney, manifested by either:Pathological abnormalities or Markers of kidney damage (including abnormalities in the composition of the blood or urine or abnormalities in imaging tests). Lab Interpretation Abnormal (test code = 12072-5) [facility] 01:48:37 Test Item Value Reference Range Interpretation Comments LIPASE (test code = 7952847639) 24 U/L 0-220 Lab Interpretation (test code = Normal 22151-4) [facility]an[facility] (TTE)2021-11-16 17:59:36 Test Item Value Reference Range Interpretation Comments Height (test code = in 9652686549) Weight (test code = lbs 3624937159) Systolic BP (test code = mmHg 4698707712) Diastolic BP (test code mmHg = 1672446349) Heart Rate (test code = bpm 7675150122) BSA (test code = 1.71 m2 8097057157) Ao root annulus (test 2.9 cm code = 8640639752) Ao root diam (test code 2.90 cm = 3583238307) Aortic root (test code = 2.9 cm 6537568287) LVOT diameter (test code 1.80 cm = 9538916631) LVOT area (test code = 2.50 cm2 7275053567) LVIDD (test code = 4.20 cm 0758145967) Left Ventricular End 80.5 mL Diastolic Volume by Teichholz Method (test code = 2310553) IVS (test code = 1.44 cm 3690569817) Interventricular Septum 1.44 cm Diastolic Thickness by 2D (test code = 0795888) LVPWD (test code = 1.44 cm 5454348663) PW (test code = 1.44 cm 0.6-1.6 8680464026) EF(Teich) (test code = 60.40 % 4218384420) LVIDS (test code = 2.90 cm 4449644910) Left Ventricular End 31.9 mL Systolic Volume by Teichholz Method (test code = 7418071) FS (test code = 32 % 3087829132) EF - 2D (test code = 60.40 % 63891761) LA size (test code = 5.8 cm 6164447505) TR Peak Anjelica (test code = 313.9 cm/s 5489543905) Triscuspid Valve mmHg Regurgitation Peak Gradient (test code = 6640458866) Pulmonic Regurgitant End 168.2 cm/s Max Velocity (test code = 0400161976) LAV(MOD-sp4) (test code 316.00 mL = 4367983320) E wave decelartion time 0.24 s (test code = 6764012342) MV stenosis pressure 1/2 72.9 ms time (test code = 7702422633) MV Peak E Anjelica (test code 85.3 cm/s = 4671949400) MV Peak A Anjelica (test code 24.5 cm/s = 6498539246) E/A ratio (test code = ratio 4108331174) MR max PG (test code = 69.70 mm[Hg] 7929369404) MR max anjelica (test code = 417.10 cm/s 6359503935) Mr max anjelica (test code = 417.1 m/s 7013004762) MV Prop V (test code = 33.80 cm/s 9918515780) MV E/e' septal (test 8.3 cm/s code = 4301435733) Tapse (test code = 1.06 cm 3775952090) LVOT stroke volume (test 59.50 cm3 code = 8124332684) LVOT peak anjelica (test code 134.0 cm/s = 4926781619) LVOT mn grad (test code mmHg = 3636828673) AV LVOT peak gradient mmHg (test code = 1468960435) LVOT peak VTI (test code 23.4 cm = 9358656356) LV V1 mean (test code = 80.20 cm/s 4505686800) Aortic valve mean 109.8 cm/s velocity (test code = 0968128187) Ao peak anjelica (test code = 163.3 cm/s 6943753443) Ao VTI (test code = 30.0 cm 4578896497) AV area by cont VTI 2.0 cm2 (test code = 6630822404) AV area peak anjelica (test 2.1 cm2 code = 3736364846) Ao max PG (test code = 10.70 mm[Hg] 6391511041) AV peak gradient (test mmHg code = 6614001567) AV valve area (test code 1.98 cm2 = 3004457947) AV mean gradient (test mmHg code = 6652796791) Radiology Study observation (narrative) (test code = 84535-4) OTTO (test code = OTTO) ?Left?Ventricle: Left ventricle size is normal. Moderately increased wall thickness. Normal wall motion. ?Pulmonic?Valve: Pulmonic valve is normal in structure and function. ?Mitral?Valve: Mitral valve structure is normal. Mildly thickened leaflets. ?Tricuspid?Valve: Tricuspid valve structure is normal. Moderate transvalvular regurgitation. Right ventricular systolic pressure is 50-55 mmHg. ?RA pressure is 0-5 mmHg. Left VentricleLeft ventricle size is normal. Moderately increased wall thickness. Normal wall motion. Normal systolic function with a visually estimated EF of 60 - 65%. There is pseudonormal diastolic dysfunction.Right VentricleRight ventricle is mildly dilated. Normal systolic function.Left AtriumLeft atrium is severely dilated.Right AtriumRight atrium is moderately dilated.Mitral ValveMitral valve structure is normal. Mildly thickened leaflets. Mild to moderate transvalvular regurgitation.Tricusp id ValveTricuspid valve structure is normal. Moderate transvalvular regurgitation. Right ventricular systolic pressure is 50-55 mmHg. RA pressure is 0-5 mmHg.Aortic ValveAortic valve structure is normal. No transvalvular regurgitation.Pulmoni c ValvePulmonic valve is normal in structure and function. Mild transvalvular regurgitation.Ascendi ng AortaAorta is normal in size.PericardiumThe pericardium is normal. No pericardial effusion.Study DetailsStudy quality was adequate. A complete echocardiogram was performed using 2D, color flow Doppler and spectral Doppler. [facility] [id number] 12:08:33 Test Item Value Reference Range Interpretation Comments NT-proBNP (test code 2960 pg/mL See_Comment H [Autom ated = [id number]) message] The system which generated this result transmitted reference range : <=125. The reference range was not used to interpret this result as normal/abnormal . OTTO (test code = OTTO) Biotin has been reported to cause a negative bias, interpret results relative to patient's use of biotin. Lab Interpretation Abnormal (test code = 79135-1) [facility] (NA, K, CL, CO2, GLUCOSE, BUN, CREATININE, CA)2021-11-16 12:03:32 Test Item Value Reference Range Interpretation Comments NA (test code = 136 mmol/L 135-145 7673176102) K (test code = 3.1 mmol/L 3.5-5 L 0945382229) CL (test code = 102 mmol/L 98-108 0656461957) CO2 TOTAL (test code = 30 mmol/L 23-31 5474290140) AGAP (test code = 2-16 2151542397) BUN (test code = 15 mg/dL 7-23 3625465981) GLUCOSE (test code = 92 mg/dL 70-110 4039638909) CREATININE (test code = 1.01 mg/dL 0.5-1.04 9805864205) CALCIUM (test code = 8.4 mg/dL 8.6-10.6 L 5949736228) eGFR (test code = mL/min/1.73m2 7850259333) OTTO (test code = OTTO) Association of Glomerular Filtration Rate (GFR) and Staging of Kidney Disease* + --+ --+ ------+| GFR (mL/min/1.73 m2) ?| With Kidney Damage ?| ?Without Kidney Damage+ --------+ --------+ +| ?>90 ?| ?Stage one ?| ? Normal ?+ ---+ ---+ -------+| ?60-89 ?| ?Stage two ?| ? Decreased GFR ? + --+ --+ ------+| ?30-59 ?| ?Stage three ?| ? Stage three ? + --+ --+ ------+| ?15-29 ?| ?Stage four ? | ? Stage four ?+ ---+ ---+ -------+| ?<15 (or dialysis) ? ?| ?Stage five ? | ? Stage five ?+ ---+ ---+ -------+ *Each stage assumes the associated GFR level has been in effect for at least three months. ?Stages 1 to 5, with or without kidney disease, indicate chronic kidney disease. Notes: Determination of stages one and two (with eGFR >59mL/min/1.73 m2) requires estimation of kidney damage for at least three months as defined by structural or functional abnormalities of the kidney, manifested by either:Pathological abnormalities or Markers of kidney damage (including abnormalities in the composition of the blood or urine or abnormalities in imaging tests). Lab Interpretation Abnormal (test code = 89121-3) [facility] WITH [id number] 11:29:08 Test Item Value Reference Range Interpretation Comments WBC (test code = See_Comment [Automated 6690-2) message] The sy stem which generated this result transmitted reference range : 4.30 - 11.10 10*3/?L. The reference range was not used to interpret this result as normal/abnormal . RBC (test code = See_Comment L [Automated 789-8) message] The sy stem which generated this result transmitted reference range : 3.93 - 5.25 10*6/?L. The reference range was not used to interpret this result as normal/abnormal . HGB (test code = 9.5 g/dL 11.6-15 L 718-7) HCT (test code = 29.8 % 35.7-45.2 L 4544-3) MCV (test code = 83.9 fL 80.6-95.5 787-2) MCH (test code = 26.8 pg 25.9-32.8 785-6) MCHC (test code = 31.9 g/dL 31.6-35.1 786-4) RDW-SD (test code = 49.6 fL 39-49.9 32946-5) RDW-CV (test code = 16.2 % 12-15.5 H 788-0) PLT (test code = See_Comment [Automated 777-3) message] The sy stem which generated this result transmitted reference range : 166 - 358 10*3/ ?L. The reference r howie was not used to interpret this result as normal/abnormal . MPV (test code = 10.5 fL 9.5-12.9 05589-0) NRBC/100 WBC (test See_Comment [Automat ed code = 4941188903) message] The system which generated this result transmitted reference range : 0.0 - 10.0 /100 WBCs. The refer ence range was not u sed to interpret th is result as normal/abnormal . NRBC x10^3 (test code See_Comment [Auto mated = 1536557342) message] The s ystem which generated this result transmitted reference range : 10*3/?L. The reference range was not used to interpret this result as normal/abnormal . GRAN MAT (NEUT) % 67.5 % (test code = 770-8) IMM GRAN % (test code 0.50 % = 2475677557) LYMPH % (test code = 15.1 % 736-9) MONO % (test code = 13.5 % 5905-5) EOS % (test code = 3.0 % 713-8) BASO % (test code = 0.4 % 706-2) GRAN MAT x10^3(ANC) 5.33 10*3/uL 1.88-7.09 (test code = 1580464637) IMM GRAN x10^3 (test 0.04 10*3/uL 0-0.06 code = 3592569724) LYMPH x10^3 (test code 1.19 10*3/uL 1.32-3.29 L = 731-0) MONO x10^3 (test code 1.07 10*3/uL 0.33-0.92 H = 742-7) EOS x10^3 (test code = 0.24 10*3/uL 0.03-0.39 711-2) BASO x10^3 (test code 0.03 10*3/uL 0.01-0.07 = 704-7) Lab Interpretation Abnormal (test code = 97838-0) [facility] [id number] 11:16:40 Test Item Value Reference Range Interpretation Comments NT-proBNP (test code 3280 pg/mL See_Comment H [Autom ated = 7959702976) message] The system which generated this result transmitted reference range : <=125. The reference range was not used to interpret this result as normal/abnormal . OTTO (test code = OTTO) Biotin has been reported to cause a negative bias, interpret results relative to patient's use of biotin. Lab Interpretation Abnormal (test code = 62720-6) [facility] IrvingFERRITIN [id number] 01:18:49 Test Item Value Reference Range Interpretation Comments FERRITIN (test code = 34.0 ng/mL 11-264 0386862536) OTTO (test code = OTTO) Biotin has been reported to cause a negative bias, interpret results relative to patient's use of biotin. Lab Interpretation (test Normal code = 84494-3) [facility] Irving[facility]ON [id number] 00:49:43 Test Item Value Reference Range Interpretation Comments IRON (test code = 0629470615) 42 ug/dL 50-160 L TIBC (test code = 8045227694) 487 ug/dL 250-410 H % FE SAT (test code = 5534740522) 9 % 20-50 L Lab Interpretation (test code = Abnormal 37079-6) [facility]OSPH[facility]2022-09-18 00:41:05 Test Item Value Reference Range Interpretation Comments PHOSPHORUS (test code = 3905590834) 2.9 mg/dL 2.5-5 Lab Interpretation (test code = Normal 93701-3) [facility] IrvingTROPONIN [id number] 22:33:18 Test Item Value Reference Interpretation Comments Range TROPONIN I (test 0.023 ng/mL See_Comment [Automated code = 9273711036) message] The system which generated this result transmitted reference range : <=0.034. The reference range was not used to interpret this result as normal/abnormal . OTTO (test code = Reference (Normal) OTTO) Range (defined by the 99th percentile reference limit): <= 0.034 ng/mL Note: Cardiac troponin begins to rise 3-4 hours after the onset of ischemia. Repeat in 4-6 hours if the sample was drawn within 3-4 hours of the onset of the symptom and found normal. Diagnosis of myocardial injury is made with acute changes in cTn concentrations with at least one serial sample above the 99th percentile upper reference limit (URL), taken together with the patient's clinical presentation. Biotin has been reported to cause a negative bias, interpret results relative to patient's use of biotin. Lab Interpretation Normal (test code = 39208-4) [facility] [id number] 22:29:57 Test Item Value Reference Range Interpretation Comments NT-proBNP (test code 3650 pg/mL See_Comment H [Autom ated = 9188282074) message] The system which generated this result transmitted reference range : <=125. The reference range was not used to interpret this result as normal/abnormal . OTTO (test code = OTTO) Biotin has been reported to cause a negative bias, interpret results relative to patient's use of biotin. Lab Interpretation Abnormal (test code = 81846-5) [facility] Irving[facility] METABOLIC PAN[facility] (50306)2021-11-14 22:21:21 Test Item Value Reference Range Interpretation Comments NA (test code = 137 mmol/L 135-145 5434857815) K (test code = 4.0 mmol/L 3.5-5 8750790697) CL (test code = 103 mmol/L 98-108 9609104279) CO2 TOTAL (test code 25 mmol/L 23-31 = 9471305470) AGAP (test code = 2-16 3236561245) BUN (test code = 16 mg/dL 7-23 8746673818) GLUCOSE (test code = 92 mg/dL 70-110 1986304267) CREATININE (test code 0.96 mg/dL 0.5-1.04 = 3236458362) TOTAL BILI (test code 0.6 mg/dL 0.1-1.1 = 4324792863) CALCIUM (test code = 9.1 mg/dL 8.6-10.6 3240697655) T PROTEIN (test code 7.0 g/dL 6.3-8.2 = 5714315089) ALBUMIN (test code = 4.1 g/dL 3.5-5 2312228468) ALK PHOS (test code = 107 U/L 34-122 5756962895) ALTv (test code = 28 U/L 5-35 1742-6) AST(SGOT) (test code 33 U/L 13-40 = 6492480276) eGFR (test code = mL/min/1.73m2 8307536785) OTTO (test code = OTTO) Association of Glomerular Filtration Rate (GFR) and Staging of Kidney Disease* + + +- +| GFR (mL/min/1.73 m2) ?| With Kidney Damage ?| ?Without Kidney Damage+ ------+ ----+ ------+| ?>90 ?| ?Stage one ?| ? Normal ?+ -+ + -+| ?60-89 ?| ?Stage two ?| ? Decreased GFR ? + + +- +| ?30-59 ?| ?Stage three ?| ? Stage three ? + + +- +| ?15-29 ?| ?Stage four ? | ? Stage four ?+ -+ + -+| ?<15 (or dialysis) ? ?| ?Stage five ? | ? Stage five ?+ -+ + -+ *Each stage assumes the associated GFR level has been in effect for at least three months. ?Stages 1 to 5, with or without kidney disease, indicate chronic kidney disease. Notes: Determination of stages one and two (with eGFR >59mL/min/1.73 m2) requires estimation of kidney damage for at least three months as defined by structural or functional abnormalities of the kidney, manifested by either:Pathological abnormalities or Markers of kidney damage (including abnormalities in the composition of the blood or urine or abnormalities in imaging tests). [facility]2022-09-17 22:21:21 Test Item Value Reference Range Interpretation Comments MAGNESIUM (test code = 9175933956) 1.5 mg/dL 1.7-2.4 L Lab Interpretation (test code = Abnormal 57825-7) [facility] WITH [id number] 22:21:01 Test Item Value Reference Range Interpretation Comments WBC (test code = See_Comment [Automated 6690-2) message] The sy stem which generated this result transmitted reference range : 4.30 - 11.10 10*3/?L. The reference range was not used to interpret this result as normal/abnormal . RBC (test code = See_Comment [Automated 809-8) message] The sy stem which generated this result transmitted reference range : 3.93 - 5.25 10*6/?L. The reference range was not used to interpret this result as normal/abnormal . HGB (test code = 11.2 g/dL 11.6-15 L 718-7) HCT (test code = 35.5 % 35.7-45.2 L 4544-3) MCV (test code = 84.3 fL 80.6-95.5 787-2) MCH (test code = 26.6 pg 25.9-32.8 785-6) MCHC (test code = 31.5 g/dL 31.6-35.1 L 786-4) RDW-SD (test code = 49.5 fL 39-49.9 31218-1) RDW-CV (test code = 16.2 % 12-15.5 H 788-0) PLT (test code = See_Comment L [Automated 777-3) message] The sy stem which generated this result transmitted reference range : 166 - 358 10*3/ ?L. The reference r howie was not used to interpret this result as normal/abnormal . MPV (test code = 10.7 fL 9.5-12.9 51832-9) NRBC/100 WBC (test See_Comment [Automat ed code = 4345694488) message] The system which generated this result transmitted reference range : 0.0 - 10.0 /100 WBCs. The refer ence range was not u sed to interpret th is result as normal/abnormal . NRBC x10^3 (test code See_Comment [Auto mated = 7822896725) message] The s ystem which generated this result transmitted reference range : 10*3/?L. The reference range was not used to interpret this result as normal/abnormal . GRAN MAT (NEUT) % 78.0 % (test code = 770-8) IMM GRAN % (test code 0.50 % = 4439937998) LYMPH % (test code = 8.6 % 736-9) MONO % (test code = 11.3 % 5905-5) EOS % (test code = 1.3 % 713-8) BASO % (test code = 0.3 % 706-2) GRAN MAT x10^3(ANC) 7.22 10*3/uL 1.88-7.09 H (test code = 9797467138) IMM GRAN x10^3 (test 0.05 10*3/uL 0-0.06 code = 9041657354) LYMPH x10^3 (test code 0.80 10*3/uL 1.32-3.29 L = 731-0) MONO x10^3 (test code 1.05 10*3/uL 0.33-0.92 H = 742-7) EOS x10^3 (test code = 0.12 10*3/uL 0.03-0.39 711-2) BASO x10^3 (test code 0.03 10*3/uL 0.01-0.07 = 704-7) Lab Interpretation Abnormal (test code = 12143-9) [facility] 22:21:01 Test Item Value Reference Range Interpretation Comments LIPASE (test code = 8513515604) 90 U/L 0-220 Lab Interpretation (test code = Normal 28686-1) [facility]OL[facility] [id number] 07:58:00 Test Item Value Reference Range Interpretation Comments SODIUM (test code = 134 MMOL/L 137-145 L NA) POTASSIUM (test code = 3.8 MMOL/L 3.5-5.1 N K) CHLORIDE (test code = 103 MMOL/L 98-107 N CL) CARBON DIOXIDE (test 25 MMOL/L 22-30 N code = CO2) GLUCOSE (test code = 106 MG/DL 74-106 N GLU) BLOOD UREA NITROGEN 15 MG/DL 7-17 N (test code = BUN) GLOMERULAR FILTRATION > 60 Report ing units: RATE (test code = GFR) ml/mi n/1.73 m2 (Modified MDRD Formula)Referen ce Range: > or = 6 0 ml/min/1.73 m2 CREATININE (test code 0.80 MG/DL 0.52-1.04 N = CREAT) CALCIUM (test code = 8.7 MG/DL 8.4-10.2 N CA) [id number] 07:58:00 Test Item Value Reference Range Interpretation Comments MAGNESIUM (test code = MAG) 1.5 MG/DL 1.6-2.3 L BASIC METABOLIC [id number] 07:55:00 Test Item Value Reference Range Interpretation Comments SODIUM (test code = NA) 134 MMOL/L 137-145 L POTASSIUM (test code = K) 3.8 MMOL/L 3.5-5.1 N CHLORIDE (test code = CL) 103 MMOL/L 98-107 N CARBON DIOXIDE (test code = CO2) MMOL/L 22-30 GLUCOSE (test code = GLU) MG/DL 74-106 BLOOD UREA NITROGEN (test code = MG/DL 7-17 BUN) GLOMERULAR FILTRATION RATE (test code = GFR) CREATININE (test code = CREAT) MG/DL 0.52-1.04 CALCIUM (test code = CA) MG/DL 8.7-9.7 [id number] 07:55:00 Test Item Value Reference Range Interpretation Comments MAGNESIUM (test code = MAG) MG/DL 1.6-2.3 CBC W/AUTO [id number] 06:55:00 Test Item Value Reference Range Interpretation Comments WHITE BLOOD CELL (test code = 5.3 K/MM3 3.8-9.8 N WBC) RED BLOOD CELL (test code = 3.40 M/MM3 3.58-4.97 L RBC) HEMOGLOBIN (test code = HGB) 9.9 G/DL 11.2-14.9 L HEMATOCRIT (test code = HCT) 32.2 % 33.2-43.5 L MEAN CELL VOLUME (test code = 95 fL 80.7-99.1 N MCV) MEAN CELL HGB (test code = MCH) 29.1 pg 27.0-34.1 N MEAN CELL HGB CONCETRATION 30.7 % 32.2-35.7 L (test code = MCHC) RED CELL DISTRIBUTION WIDTH 13.5 % 12.1-15.2 N (test code = RDW) PLATELET COUNT (test code = 134 K/MM3 129-368 PLT) MEAN PLATELET VOLUME (test code 9.7 fl 7.4-10.4 N = MPV) NEUTROPHIL % (test code = NT%) 63.9 % 43-75 N IMMATURE GRANULOCYTE % (test 0.4 % 0.0-2.0 N code = IG%) LYMPHOCYTE % (test code = LY%) 21.1 % 14-44 N MONOCYTE % (test code = MO%) 11.7 % 4-13 N EOSINOPHIL % (test code = EO%) 2.5 % 0-6 N BASOPHIL % (test code = BA%) 0.4 % 0-2 N NUCLEATED RBC % (test code = 0.0 % 0-1.0 N NRBC%) NEUTROPHIL # (test code = NT#) 3.39 K/mm3 2.0-7.6 N IMMATURE GRANULOCYTE # (test 0.02 x10 3/uL 0-0.03 N code = IG#) LYMPHOCYTE # (test code = LY#) 1.12 K/mm3 1.0-3.8 N MONOCYTE # (test code = MO#) 0.62 K/mm3 0.1-0.8 N EOSINOPHIL # (test code = EO#) 0.13 K/mm3 0.0-0.2 N BASOPHIL # (test code = BA#) 0.02 K/mm3 0.0-0.2 N NUCLEATED RBC # (test code = 0.00 K/mm3 0.0-0.1 N NRBC#) GLUCOSE BEDSIDE [id number] 20:34:00 Test Item Value Reference Range Interpretation Comments GLUCOSE BEDSIDE TESTING (test code = 85 MG/DL 60-99 N GLUBED) BASIC METABOLIC [id number] 12:33:00 Test Item Value Reference Range Interpretation Comments SODIUM (test code = 140 MMOL/L 137-145 N NA) POTASSIUM (test code = 3.5 MMOL/L 3.5-5.1 N K) CHLORIDE (test code = 103 MMOL/L 98-107 N CL) CARBON DIOXIDE (test 29 MMOL/L 22-30 N code = CO2) GLUCOSE (test code = 94 MG/DL 74-106 N GLU) BLOOD UREA NITROGEN 20 MG/DL 7-17 H (test code = BUN) GLOMERULAR FILTRATION > 60 Report ing units: RATE (test code = GFR) ml/mi n/1.73 m2 (Modified MDRD Formula)Referen ce Range: > or = 6 0 ml/min/1.73 m2 CREATININE (test code 0.90 MG/DL 0.52-1.04 N = CREAT) CALCIUM (test code = 9.0 MG/DL 8.4-10.2 N CA) [id number] 12:33:00 Test Item Value Reference Range Interpretation Comments MAGNESIUM (test code = MAG) 1.5 MG/DL 1.6-2.3 L BASIC METABOLIC [id number] 12:32:00 Test Item Value Reference Range Interpretation Comments SODIUM (test code = 140 MMOL/L 137-145 N NA) POTASSIUM (test code = 3.5 MMOL/L 3.5-5.1 N K) CHLORIDE (test code = 103 MMOL/L 98-107 N CL) CARBON DIOXIDE (test MMOL/L 22-30 code = CO2) GLUCOSE (test code = MG/DL 74-106 GLU) BLOOD UREA NITROGEN MG/DL 7-17 (test code = BUN) GLOMERULAR FILTRATION > 60 Report ing units: RATE (test code = GFR) ml/mi n/1.73 m2 (Modified MDRD Formula)Referen ce Range: > or = 6 0 ml/min/1.73 m2 CREATININE (test code 0.90 MG/DL 0.52-1.04 N = CREAT) CALCIUM (test code = MG/DL 8.7-9.7 CA) [id number] 12:32:00 Test Item Value Reference Range Interpretation Comments MAGNESIUM (test code = MAG) MG/DL 1.6-2.3 PROTHROMBIN [id number] 12:30:00 Test Item Value Reference Range Interpretation Comments PROTHROMBIN TIME 13.0 SECONDS 9.4-12.5 H PATIENT (test code = PTP) INTERNATIONAL NORMAL 1.2 The INR is to be RATIO (test code = used only for INR) monitoring oral anticoagulantth erap y. INDICATION INR VALUE ---- ---- ---- -------1. Prophylaxis, de ep venous thrombos is, including high risk surgery. 2.0 - 3.0 2. Prophylaxis, deep venous thrombosis, hip surgery, treatm ent for deep venous thrombosis or pulmonary prevention of systemic emboli sm in patients wit h valvular heart disease, atrial fibrillation, tissue heart va lve, or acute myocar dial infarction. 2.0 - 3.0 3. Automatic Hemmer al prosthesis hear t valves, recurre nt systemic emboli sm. 3.0 - 4.5 PTT [id number] 12:30:00 Test Item Value Reference Range Interpretation Comments PTT ACTIVATED (test code = APTT) 28.3 SECONDS 25.1-36.5 N BASIC METABOLIC [id number] 12:30:00 Test Item Value Reference Range Interpretation Comments SODIUM (test code = NA) 140 MMOL/L 137-145 N POTASSIUM (test code = K) 3.5 MMOL/L 3.5-5.1 N CHLORIDE (test code = CL) 103 MMOL/L 98-107 N CARBON DIOXIDE (test code = CO2) MMOL/L 22-30 GLUCOSE (test code = GLU) MG/DL 74-106 BLOOD UREA NITROGEN (test code = MG/DL 7-17 BUN) GLOMERULAR FILTRATION RATE (test code = GFR) CREATININE (test code = CREAT) MG/DL 0.52-1.04 CALCIUM (test code = CA) MG/DL 8.7-9.7 [id number] 12:30:00 Test Item Value Reference Range Interpretation Comments MAGNESIUM (test code = MAG) MG/DL 1.6-2.3 BASIC METABOLIC [id number] 12:29:00 Test Item Value Reference Range Interpretation Comments SODIUM (test code = NA) MMOL/L 137-145 POTASSIUM (test code = K) MMOL/L 3.5-5.1 CHLORIDE (test code = CL) 103 MMOL/L 98-107 N CARBON DIOXIDE (test code = CO2) MMOL/L 22-30 GLUCOSE (test code = GLU) MG/DL 74-106 BLOOD UREA NITROGEN (test code = MG/DL 7-17 BUN) GLOMERULAR FILTRATION RATE (test code = GFR) CREATININE (test code = CREAT) MG/DL 0.52-1.04 CALCIUM (test code = CA) MG/DL 8.7-9.7 [id number] 12:29:00 Test Item Value Reference Range Interpretation Comments MAGNESIUM (test code = MAG) MG/DL 1.6-2.3 CBC W/AUTO [id number] 12:12:00 Test Item Value Reference Range Interpretation Comments WHITE BLOOD CELL (test code = 4.9 K/MM3 3.8-9.8 N WBC) RED BLOOD CELL (test code = 4.19 M/MM3 3.58-4.97 N RBC) HEMOGLOBIN (test code = HGB) 12.1 G/DL 11.2-14.9 N HEMATOCRIT (test code = HCT) 39.3 % 33.2-43.5 N MEAN CELL VOLUME (test code = 94 fL 80.7-99.1 N MCV) MEAN CELL HGB (test code = MCH) 28.9 pg 27.0-34.1 N MEAN CELL HGB CONCETRATION 30.8 % 32.2-35.7 L (test code = MCHC) RED CELL DISTRIBUTION WIDTH 13.4 % 12.1-15.2 N (test code = RDW) PLATELET COUNT (test code = 168 K/MM3 129-368 N PLT) MEAN PLATELET VOLUME (test code 9.5 fl 7.4-10.4 N = MPV) NEUTROPHIL % (test code = NT%) 63.3 % 43-75 N IMMATURE GRANULOCYTE % (test 0.2 % 0.0-2.0 N code = IG%) LYMPHOCYTE % (test code = LY%) 20.1 % 14-44 N MONOCYTE % (test code = MO%) 11.9 % 4-13 N EOSINOPHIL % (test code = EO%) 3.9 % 0-6 N BASOPHIL % (test code = BA%) 0.6 % 0-2 N NUCLEATED RBC % (test code = 0.0 % 0-1.0 N NRBC%) NEUTROPHIL # (test code = NT#) 3.09 K/mm3 2.0-7.6 N IMMATURE GRANULOCYTE # (test 0.01 x10 3/uL 0-0.03 N code = IG#) LYMPHOCYTE # (test code = LY#) 0.98 K/mm3 1.0-3.8 L MONOCYTE # (test code = MO#) 0.58 K/mm3 0.1-0.8 N EOSINOPHIL # (test code = EO#) 0.19 K/mm3 0.0-0.2 N BASOPHIL # (test code = BA#) 0.03 K/mm3 0.0-0.2 N NUCLEATED RBC # (test code = 0.00 K/mm3 0.0-0.1 N NRBC#) Novel Coronavirus 2018 [id number] 00:06:00 Test Item Value Reference Interpretation Comments Range Novel Not Detected Not Detected Testing was per formed using Coronavirus 2019 the [employer] SARS-CoV-2 Inhouse (test assay.This johnathan t was developed code = and its perform ance COVNONPUI) characteristics determined by [facility]. This test has not be enFDA cleared or approved. Th is test has been authorized byFDA under an Emergency Us e Authorization ( EUA). This testis only aut horized for the duration of time the declarationthat circumstances exist justifyin g the authorization o fthe emergency use of in vitro diagnostic tests fordetect ion of SARS-CoV-2 viru s and/or diagnosis of COVID-19infecti on under section 564(b)( 1) of the Act, 21 U.S.C.360bbb -3(b)(1), unless the auth orization is terminated orre voked sooner. When diagnostic testing is negative, thepo ssibility of a false negative result should be consideredin the context of a patient's recent exposures and t hepresence of clinical signs and symptoms consistent with COVID-19. An individual with out symptoms of COVID-19 and who is not shedding SARS-C oV-2 virus would expect to have anegative (not detected) result in this assay.Performed At: [facility] [address] [id number] Farhat Carlton MD Ph:[phone] Notes Date/Time Note Provider Source 2019-10-10 06:54:00-00:00 [facility] ([facility]) Cardiology Progress Note REPORT#:[id number] REPORT STATUS: Signed DATE:10/10/19 TIME: 653 PATIENT: ROLDAN DEAN UNIT #: [id number] ROOM/BED: [address] : 56 AGE: 59 SEX: F ATTEND: Michi Castro MD ADM AUTHOR: Harsh Castro MD * ALL edits or amendments must be made on the [employer]/computer document * Subjective Chief Complaint: Atrial arrhythmia Patient reports: No: chest pain, palpitations, shortness of breat h. Objective General VS/I O: 24 hour I O ending at 0700: 10/09 0700 10/08 1900 Intake Total 800.00 Output Total 450 Balance 350.00 Intake, IV 600.00 Intake, Oral 200 Number Voids 2 Output, Urine 450 Patient 63.503 kg Weight Vital Signs: Date Time Temp Pulse Resp B/P B/P Pulse O2 O2 F low FiO2 Mean Ox Delivery Rate 10/09 0443 98.8 58 18 111/72 85.1 94 10/09 0158 Nasal 2.114679 28 cannula 10/08 2350 98.1 60 18 124/77 92.9 100 10/09 2019 58 18 100 10/08 2016 97.7 60 135/82 99.6 100 Patient Weight Weight (lb): 140 Weight (oz): Weight (kg): 63.603380 Medications: Active Meds + DC'd Last 24 Hrs Amiodarone HCl 200 MG DAILY PO Diltiazem HCl 240 MG DAILY PO Furosemide 40 MG DAILY PO Atorvastatin Calcium 5 MG BEDTIME PO Enoxaparin Sodium 40 MG Q12HR SUBQ Levetiracetam 250 MG BID PO Ondansetron HCl 0 .STK-MED ONE .ROUTE (DC) Sodium Chloride 1,000 ML ONCE ONE IV (DC) Meperidine HCl 0 .STK-MED ONE .ROUTE (DC) Ondansetron HCl 0 .STK-MED ONE .ROUTE (DC) Etomidate 0 .STK-MED ONE .ROUTE (DC) Fentanyl Citrate 0 .STK-MED ONE .ROUTE (DC) Midazolam HCl 0 .STK-MED ONE .ROUTE (DC) Sodium Chloride 1,000 ML .STK-MED ONE IV (DC) Midazolam HCl 0 .STK-MED ONE .ROUTE (DC) Fentanyl Citrate 0 .STK-MED ONE .ROUTE (DC) Midazolam HCl 0 .STK-MED ONE .ROUTE (DC) Benzocaine 0 .STK-MED ONE .ROUTE (DC) Lidocaine HCl 0 .STK-MED ONE .ROUTE (DC) Lidocaine HCl 0 .STK-MED ONE .ROUTE (DC) Magnesium Sulfate 50 ML ONCE ONE IV (DC) Magnesium Sulfate 50 ML .STK-MED ONE IV (DC) Heparin Sodium/Sodium Chloride 500 ML .STK-MED O NE IV (DC) Lidocaine 0 .STK-MED ONE .ROUTE (DC) Sodium Chloride 4,000 ML .STK-MED ONE IV (DC) Heparin Sodium 0 .STK-MED ONE .ROUTE (DC) Sodium Chloride 1,000 ML Q13H IV (DC) Physical Exam General appearance: alert, awake, oriented Head/Eyes: atraumatic, normocephalic ENT: moist mucosal membranes Neck: no JVD Cardiovascular: CV assessment: regular rate and rhythm Respiratory: clear to auscultation, no distress Lower extremity: LE assessment: no edema Musculoskeletal: full range of motion Neuro/PREFITTER: alert, oriented X 3, CN II-XII intact Skin: dry, intact Wound/incision: Location: Bilateral groin Site condition: dressing clean dry Psychiatry: normal affect, normal judgment/insig ht, normal mood Results Findings/Data: Laboratory Tests 10/08 1204 Chemistry Sodium (137 - 145 MMOL/L) 140 Potassium (3.5 - 5.1 MMOL/L) 3.5 Chloride (98 - 107 MMOL/L) 103 Carbon Dioxide (22 - 30 MMOL/L) 29 BUN (7 - 17 MG/DL) 20 H Creatinine (0.52 - 1.04 MG/DL) 0.90 Glomerular Filtr Rate > 60 Glucose (74 - 106 MG/DL) 94 POC Glucose (60 - 99 MG/DL) 85 Calcium (8.4 - 10.2 MG/DL) 9.0 Magnesium (1.6 - 2.3 MG/DL) 1.5 L Laboratory Tests 10/08 1204 Coagulation INR 1.2 APTT (25.1 - 36.5 SECONDS) 28.3 PT Patient/Control Mix (9.4 - 12.5 SECONDS) 13. 0 H Laboratory Tests 10/09 10/08 0638 1204 Hematology WBC (3.8 - 9.8 K/MM3) 5.3 4.9 RBC (3.58 - 4.97 M/MM3) 3.40 L 4.19 Hgb (11.2 - 14.9 G/DL) 9.9 L 12.1 Hct (33.2 - 43.5 %) 32.2 L 39.3 MCV (80.7 - 99.1 fL) 95 94 MCH (27.0 - 34.1 pg) 29.1 28.9 MCHC (32.2 - 35.7 %) 30.7 L 30.8 L RDW (12.1 - 15.2 %) 13.5 13.4 Plt Count (129 - 368 K/MM3) 134 168 MPV (7.4 - 10.4 fl) 9.7 9.5 Neut % (Auto) (43 - 75 %) 63.9 63.3 Lymph % (Auto) (14 - 44 %) 21.1 20.1 Charlton % (Auto) (4 - 13 %) 11.7 11.9 Eos % (Auto) (0 - 6 %) 2.5 3.9 Baso % (Auto) (0 - 2 %) 0.4 0.6 Neut # (Auto) (2.0 - 7.6 K/mm3) 3.39 3.09 Lymph # (Auto) (1.0 - 3.8 K/mm3) 1.12 0.98 L Charlton # (Auto) (0.1 - 0.8 K/mm3) 0.62 0.58 Eos # (Auto) (0.0 - 0.2 K/mm3) 0.13 0.19 Baso # (Auto) (0.0 - 0.2 K/mm3) 0.02 0.03 Immature Gran % (0.0 - 2.0 %) 0.4 0.2 Nucleated RBC % (0 - 1.0 %) 0.0 0.0 Nucleated RBCs # (Man) (0.0 - 0.1 K/mm3) 0.00 0 .00 Laboratory Tests 10/08 1204 Chemistry Magnesium (1.6 - 2.3 MG/DL) 1.5 L Laboratory Tests 10/08 1204 Coagulation APTT (25.1 - 36.5 SECONDS) 28.3 Diagnosis, Assessment Plan Free Text DxA P Notes Free Text DxA P Notes: IMP: ATACH - multiple RA and LA AFL - s/p RFA PLAN: d/c home Continue medical rx. If continued arrhythmia, will discuss PVI. at 0521 [facility] #:[id number] END OF REPORT 2019-10-09 19:49:00-00:00 [id number] [place] [address] PATIENT NAME: ROLDAN DEAN ADMIT DATE: 10/09/19 ACCOUNT NO: [id number] ROOM NO: Z.364 AGE: 59 REPORT TYPE: ELECTROCARDIOGRAM SEX: F ADMITTING PHYSICIAN:Harsh Castro MD ATTENDING PHYSICIAN:Harsh Castro MD Order: [id number] Test Reason : Atrial Tachycardia Test Date/Time Stamp: TueOct 09 2019 19:49:02 Blood Pressure : / mmHG Vent. Rate : 065 BPM Atrial Rate : 065 BPM P-R Int : 238 ms QRS Dur : 104 ms QT Int : 484 ms P-R-T Axes : 034 064 236 degre es QTc Int : 503 ms Sinus rhythm with 1st degree AV block Possible Left atrial enlargement Left ventricular hypertrophy with repolarization abnormality Cannot rule out Inferior infarct , age undetermi gerald Abnormal ECG When compared with ECG of 09-OCT-2019 11:54, Sinus rhythm has replaced Atrial flutter Minimal criteria for Inferior infarct are now pr esent ST no longer depressed in Inferior leads Confirmed by BLAINE ABDI ([id number]) on 10/10/2019 7:06:05 AM Referred By: Harsh Castro Confirmed by:BLAINE ESPARZA at 0706 PATIENT NAME: ROLDAN DEAN 84 2019-10-09 18:54:00-00:00 [id number] [place] [address] PATIENT NAME: ROLDAN DEAN ADMIT DATE: 10/09/19 ACCOUNT NO: [id number] ROOM NO: Z.364 AGE: 59 REPORT TYPE: OPERATIVE REPORT SEX: F ADMITTING PHYSICIAN:Harsh Castro MD ATTENDING PHYSICIAN:Harsh Castro MD OPERATION DATE: 10/09/2019 PROCEDURES: 1. Comprehensive electrophysiology evaluation wi th atrial ablation. 2. Diagnostic electrophysiology study with attem pted induction. 3. Left atrial recordings. 4. Three-dimensional interatrial mapping. 5. Intracardiac echocardiography. PREPROCEDURE DIAGNOSES: 1. History of atrial flutter, status post ablati on at [facility] in [place], [place]. 2. Coronary artery disease, status post percutan eous transluminal coronary angioplasty and stent. POSTPROCEDURE DIAGNOSES: 1. History of atrial flutter, status post ablati on at [facility] in [place], [place]. 2. Coronary artery disease, status post percutan eous transluminal coronary angioplasty and stent. 3. Atrial tachycardia. ADDITIONAL DIAGNOSES: 1. Incomplete cavotricuspid isthmus ablation soha e. 2. Multiple atrial tachycardias from the right a nd left atrium. OPTOELECTRONIC TECHNICIAN: Dr. Harsh Castro MARKETING COMMUNICATIONS COORDINATOR: None. ANESTHESIA: Local anesthesia with 1% lidocaine with moderate and deep sedation. PROCEDURE DETAILS: After informed consent was ob tained explaining to the patient the risks, benefits, and alternatives, t he patient was brought to the cardiac catheterization lab in the fasting posta bsorptive state. She was prepped and draped in sterile fashion. Local ane sthesia was applied over both femoral veins with 1% lidocaine. Access to the v eins was obtained using modified Seldinger technique with a micr opuncture kit and ultrasound guidance. A locking 8-Japanese and standard 8-Japanese sheaths were placed in the right femoral vein. A standard 8, 6, and 9-Japanese zuniga ths were placed in the left femoral vein. All sheaths were aspirated and flu shed and connected to heparinized saline infusion. A Decapolar deflectable catheter was advanced via PATIENT NAME: ROLDAN DEAN 84 the locking 8-Japanese sheath and placed in the co ronary sinus. Left atrial recordings were made. A Cournand cathete r was advanced via 6-Japanese sheath and placed in the right ventricle. A Imelda corry ter was advanced via the 9-Japanese sheath and placed in the right atrial a ppendage. The deflectable quadripolar catheter was advanced via th e standard 8-Japanese sheath on the left and placed in the HIS positi on. A DuoDeca isthmus catheter was advanced via the standard 8-Japanese sheath on the right and placed around the cavotricuspid isthmus. The isthmus catheter activation sequenc e was not consistent with typical counterclockwise or clockwise atrial flu tter isthmus dependent atrial flutter. The isthmus catheter was remove d and a PentaRay catheter was advanced via the standard 8-Japanese sheath on the right an d right atrial voltage and activation map was created. The cycle length was variable, however. The voltage map revealed breakthrough in the cavotri cuspid isthmus line. Intracardiac echocardiography catheter was then exchanged for the high right atrial catheter, which was advanced via the 9-Fr ench sheath into the right atrium. Imaging and mapping of the cavotricuspid isthmus was performed with intracardiac echocardiography. The left atrial a ppendage was also imaged to verify no intracardiac thrombus. A large pouch o n the cavotricuspid isthmus across the previous ablation line was no emma. An Agilis sheath was then prepped and exchanged for the standard 8-Japanese sheath on the right over the wire. The sheath was aspirated and flushed and con nected to heparinized saline infusion. A ThermoCoPer Vices STSF SmartTouch ablation catheter w as then advanced via the deflectable Agilis sheath into the right atrium. Multiple RF applications were made across the cavotricuspid isthmus. Due to di fficulty, a breakthrough was noted through the area of the pouch and the cavo tricuspid isthmus noted by intracardiac echocardiography. A lateral ablatio n line was then created distally to proximally to circumvent the cavotri cuspid isthmus pouch. This length in the tachycardia cycle length, but did not terminate. Additional voltage mapping was performed. There were multip le scarred areas on the posterior wall as well as the nanci terminalis. Pacing on the upper lateral left atrial wall down to the lower, lateral wall was performed with high output. No phrenic nerve capture wa s noted except in the very low lateral right atrium. After confirmation of no phrenic nerve stimulat ion, multiple RF applications were made and a gap, which contained a fragment and low voltage electrograms. Prior to ablation, pacing was attempted initiall y near the nanci terminalis. Findings were inconsistent with the variable cyc le length. The ablation line was completed from the superior vena cava down t o a scar along the mid nanci terminalis. Ablation was terminated prior to ramila noni the area of the phrenic stimulation. Attention was then turned to a smal l gap with fractionated electrograms in the upper posterior wall. Pacing for phrenic nerve capture there revealed no phrenic nerve stimulation. Ent rainment was performed at the upper posterior wall gap. Multiple RF ap plications were made to close the gap. There was again a cycle length changed and varia ble cycle lengths were noted with earliest activation in the left atr ium. Given the left atrial tachycardia with the continued tachycard ia, the decision was made to cardiovert the patient and terminated the procedure. After the cardiove rsion sinus rhythm returned with intermittent premature atrial beats from th e left atrium. At this time, bidirectional block was verified across the cavo tricuspid isthmus utilizing differential pacing. At the end of the procedure , all catheters were removed. The sheaths were aspirated a nd flushed. The sheaths were removed and hemostasis achieved with local pressure. The patien t tolerated the procedure well with no complications. CONCLUSIONS: PATIENT NAME: ROLDAN DEAN 84 1. Baseline rhythm, atrial tachycardia with a va riable cycle lengths. 2. There was a presenting gap in the cavotricusp id isthmus line. Successful cavotricuspid isthmus ablation. 3. Upper posterior right atrial tachycardia abla emma. 4. Continued atrial tachycardia with intermitten t left atrial tachycardia. 5. Successful cardioversion. 6. No complications. PLAN: We will treat the patient medicall y at this time and if recurrent atrial arrhythmia, we will plan to bring the patient ba for a pulmonary vein isolation and further mapping if needed. Dictated By: Harsh Castro MD WT: OP:JARON/ANNA/NTS Conf#: [id number]/DID#: [id number] cc: Blaine Abdi MD Authenticated by Harsh Castro MD On 10/15/19 06:12:26 AM at 0612 PATIENT NAME: ROLDAN DEAN 84 2019-10-09 11:54:00-00:00 [place] [address] PATIENT NAME: ROLDAN DEAN ADMIT DATE: 10/09/19 ACCOUNT NO: [id number] ROOM NO: [facility] AGE: 59 REPORT TYPE: ELECTROCARDIOGRAM SEX: F ADMITTING PHYSICIAN:Harsh Castro MD ATTENDING PHYSICIAN:Harsh Castro MD Order: [id number] Test Reason : PREOP Test Date/Time Stamp: TueOct 09 2019 11:54:57 Blood Pressure : / mmHG Vent. Rate : 075 BPM Atrial Rate : 075 BPM P-R Int : 000 ms QRS Dur : 100 ms QT Int : 426 ms P-R-T Axes : 000 080 260 degree s QTc Int : 475 ms Atrial flutter Voltage criteria for left ventricular hypertroph y Marked ST abnormality, possible inferior subendo cardial injury Abnormal ECG No previous ECGs available Confirmed by BLAINE ABDI ([id number]) on 10/10/2019 7:05:53 AM Referred By: Harsh Castro Confirmed by:BLAINE ESPARZA at 0705 PATIENT NAME: ROLDAN DEAN 84"
[2022-09-18 15:42] LABS: Urine Bacteria None Seen /HPF (<20); Urine Bilirubin NEGATIVE (Negative); Urine Blood Negative (Negative); Urine Clarity Extremely Turbid (Clear); Urine Color Yellow (Yellow); Urine Glucose NEGATIVE (Negative); Urine Mucus 1+ /HPF (None Seen); Urine Protein 2+ (Negative); Urine Urobilinogen 2+ (Normal); Urine pH 5.5 (5.0-7.0)
--- NOTE | 2022-09-18 16:37 | RAD REPORT ---
EXAM DESCRIPTION: Young Single View09/18/2022 4:18 pm CLINICAL HISTORY: Shortness of breath COMPARISON: none FINDINGS: The lungs appear clear of acute infiltrate. The cardiac silhouette is prominent which cou ld all be marked cardiomegaly or combination of cardiomegaly and pericardial effusion
[2022-09-18 17:28] LABS: Absolute Lymphocytes (CBC) 1.2 K/uL (0.7-4.9); Hematocrit 35.6 % (36.0-45.0); Lymphocytes % 20.2 % (15.3-44.8); MCV 81.3 fL (80-100); MPV 7.5 fL (7.6-11.3); RBC Red Blood Cell Count 4.38 M/uL (3.86-4.86)
[2022-09-18 17:39] LABS: Protime INR 1.67
[2022-09-18 18:04] LABS: Albumin 3.1 g/dL (3.4-5.0); Bilirubin Direct 0.4 mg/dL (0-0.2); Bilirubin Indirect, Calculated 0.4 mg/dL (0.2-0.8); Bilirubin Total 0.8 mg/dL (0.2-1.0); Magnesium 1.7 mg/dL (1.6-2.4); Potassium 3.6 mEq/L (3.5-5.1); Protein, Total 7.6 g/dL (6.4-8.2)
--- NOTE | 2022-09-18 19:30 | RAD REPORT ---
EXAM DESCRIPTION: CT - Chest For Pe Angio - 09/18/2022 7:19 pm CLINICAL HISTORY: Shortness of breath COMPARISON: None. TECHNIQUE: Dynamically enhanced axial 3 mm thick images of the chest were obtained during administra tion of 100 mL Isovue 370 IV contrast. Coronal and oblique reconstruction images were generated and r eviewed. Exam utilizes a protocol for optimal evaluation of pulmonary arterial tree. Maximum intensity projections 3D imaging was utilized All CT scans are performed using dose optimization technique as appropriate and may include automated exposure control or mA/KV adjustment according to patient size. FINDINGS: A pulmonary embolus is not seen. A thoracic aortic aneurysm is not noted. A pleural effusion is not seen. A pericardial effusion is not seen. Mild bilateral pulmonary opacities. Small bilateral pleural effusions. Small pericardial effusion Marked cardiomegaly Distended IVC and hepatic veins IMPRESSION: Negative for a pulmonary embolism. Mild CHF
--- NOTE | 2022-09-18 19:36 | ER ---
Nurse's Notes [facility] Name: Malka Dean Age: 62 yrs Sex: Female : 1960 Arrival Date: 09/18/2022 Time: 12:47 Bed 15 Private MD: Diagnosis: Acute on chronic combined systolic (congestive) and diastolic (congestive) heart failure Presentation: 09/18 13:05 Chief complaint: SOB and bilateral leg swelling x 3-4 days. Coronavirus screen: At this hb time, the client does not indicate any symptoms associated with coronavirus-19. Ebola Screen: No symptoms or risks identified at this time. Initial Sepsis Screen: Does the patient meet any 2 criteria? No. Patient's initial sepsis screen is negative. Does the patient have a suspected source of infection? No. Patient's initial sepsis screen is negative. Risk Assessment: Do you want to hurt yourself or someone else? Patient reports no desire to harm self or others. Onset of symptoms was September 14, 2022. 13:05 Method Of Arrival: Wheelchair hb 13:05 Acuity: BERTHA 3 hb Triage Assessment: 21:41 Respiratory: Onset: The symptoms/episode began/occurred gradually, the patient has sg5 moderate shortness of breath. Historical: - Allergies: 13:07 No Known Allergies; hb - PMHx: 13:07 CHF; HTN; Seizure; hb - PSHx: 13:07 Appendectomy; Knee - Right; hb - Immunization history:: Adult Immunizations up to date. - Social history:: Smoking status: Patient denies any tobacco usage or history of. Screenin:13 [facility] ED Fall Risk Assessment (Adult) History of falling in the last 3 months, ld1 including since admission No falls in past 3 months (0 pts). Abuse screen: Denies threats or abuse. Denies injuries from another. Nutritional screening: No deficits noted. Tuberculosis screening: No symptoms or risk factors identified. Assessment: 16:13 General: Appears in no apparent distress. comfortable, Behavior is calm, cooperative, ld1 appropriate for age. Pain: Denies pain. Neuro: Level of Consciousness is awake, alert, obeys commands, Oriented to person, place, time, situation. Cardiovascular: Capillary refill < 3 seconds Patient's skin is warm and dry. Rhythm is sinus rhythm. Respiratory: Reports shortness of breath Airway is patent Respiratory effort is even, unlabored, Breath sounds are clear bilaterally. GI: Abdomen is round non-distended. : No signs and/or symptoms were reported regarding the genitourinary system. EENT: No signs and/or symptoms were reported regarding the EENT system. Derm: No signs and/or symptoms reported regarding the dermatologic system. Musculoskeletal: No signs and/or symptoms reported regarding the musculoskeletal system. 17:15 Reassessment: Patient appears in no apparent distress at this time. No changes from ld1 previously documented assessment. Patient and/or family updated on plan of care and expected duration. Pain level reassessed. 18:50 Reassessment: Patient appears in no apparent distress at this time. No changes from ld1 previously documented assessment. Patient and/or family updated on plan of care and expected duration. Pain level reassessed. Patient is alert, oriented x 3, equal unlabored respirations, skin warm/dry/pink. Vital Signs: 13:05 BP 138 / 87; Pulse 88; Resp 20; Temp 97.83; Pulse Ox 96% on R/A; Weight 70.76 kg; hb Height 5 ft. 7 in. ; Pain 8/10; 16:13 BP 162 / 91; Pulse 59; Resp 18; Pulse Ox 92% on R/A; ld1 17:24 BP 153 / 98; Pulse 61; Resp 18; Pulse Ox 100% on R/A; ld1 18:50 BP 151 / 93; Pulse 64; Resp 23; Pulse Ox 91% on R/A; ld1 19:59 BP 152 / 97; Pulse 82; Resp 23; Pulse Ox 92% on R/A; ld1 21:15 BP 163 / 98; Pulse 70; Resp 18; Pulse Ox 94% on R/A; sg5 13:05 Body Mass Index 24.43 (70.76 kg, 170.18 cm) hb 13:05 Pain Scale: Adult hb ED Course: 12:48 Patient arrived in ED. ts1 13:07 Triage completed. hb 13:07 Arm band placed on. hb 14:53 Walker Lamas PA is PHCP. jmm 14:53 Genet White is Attending Physician. jmm 15:19 [place] Brunner, RN is Primary Nurse. ld1 15:29 Urinalysis w/ reflexes Sent. ld1 16:13 Patient has correct armband on for positive identification. Placed in gown. Bed in low ld1 position. Call light in reach. Side rails up X2. gambling monitor on. Pulse ox on. NIBP on. Door closed. Noise minimized. Warm blanket given. 16:13 No provider procedures requiring assistance completed. ld1 16:20 XRAY Chest (1 view) In Process Unspecified. EDMS 16:51 Missed attempt(s): 20 gauge in right antecubital area. 22 gauge in left antecubital zm area. 17:14 Inserted saline lock: 20 gauge in right forearm, using aseptic technique. Blood ld1 collected. 18:06 Notified ED physician of a critical lab result(s). Troponin 262. hb 19:21 CT Chest For PE Angio In Process Unspecified. EDMS 19:21 CT Abd/Pelvis - IV Contrast Only In Process Unspecified. EDMS 19:35 Jurgen Tellez MD is Hospitalizing Provider. m 19:43 Nacho Franco MD is Hospitalizing Provider. la1 21:41 Patient admitted, IV remains in place. sg5 21:42 Provided Education on: need for admit, medication, treatment plan. sg5 Administered Medications: 19:51 Drug: Furosemide IVP 20 mg Route: IVP; Site: right forearm; ld1 21:09 Drug: Aspirin PO Chewable Tablet 324 mg Route: PO; sg5 21:09 Drug: Furosemide IVP 40 mg Route: IVP; Site: right forearm; sg5 Medication: 21:42 VIS not applicable for this client. sg5 Outcome: 19:36 Decision to Hospitalize by Provider. [facility] 21:41 Admitted to Med/surg accompanied by tech, via stretcher, room 409. sg5 21:41 Condition: good 21:41 Instructed on the need for admit. 21:42 Patient left the ED. sg5 Signatures: Dispatcher [employer] EDMS Walker Lamas PA PA jmm Attema, Lee, EXERCISE SPECIALIST-C EXERCISE SPECIALIST-Cla1 Luisa Whitney RN RN [place] Brunner RN RN ld1 Rose Delgado Stephanie, RN RN sg5 Pearl Ibarra PAS PAS ts1
--- NOTE | 2022-09-18 19:36 | EDPHYS ---
Physician Documentation [facility] Name: Malka Dean Age: 62 yrs Sex: Female : 1960 Arrival Date: 09/18/2022 Time: 12:47 Bed 15 Private MD: ED Physician Genet White HPI: 09/18 14:54 This 62 yrs old Unknown Female presents to ER via Wheelchair with complaints of jmm Shortness Of Breath. 14:54 The patient has shortness of breath at rest. Onset: The symptoms/episode began/occurred jmm gradually, 3 day(s) ago. The patient's shortness of breath has no apparent modifying factors. Associated signs and symptoms: Pertinent positives:. This is a 62/f with a history of chf that presents to the ED with complaints of shortness of breath, leg swelling. Patient had cardiology increase lasix with no relief. . Historical: - Allergies: 13:07 No Known Allergies; hb - PMHx: 13:07 CHF; HTN; Seizure; hb - PSHx: 13:07 Appendectomy; Knee - Right; hb - Immunization history:: Adult Immunizations up to date. - Social history:: Smoking status: Patient denies any tobacco usage or history of. ROS: 14:54 Constitutional: Negative for fever, chills, and weight loss, Cardiovascular: Negative jmm for chest pain, palpitations, and edema. 14:54 Respiratory: Positive for shortness of breath. 14:54 All other systems are negative. Exam: 14:54 Constitutional: This is a well developed, well nourished patient who is awake, alert, jmm and in no acute distress. Head/Face: atraumatic. Eyes: EOMI, no conjunctival erythema appreciated ENT: Moist Mucus Membranes Neck: Trachea midline, Supple Chest/axilla: Normal chest wall appearance and motion. Cardiovascular: Regular rate and rhythm. No edema appreciated Respiratory: Normal respirations, no respiratory distress appreciated Abdomen/GI: Non distended Back: Normal ROM Skin: General appearance color normal 14:54 Musculoskeletal/extremity: bilateral edema noted. 14:54 Skin: Appearance: Color: normal in color. 14:54 Neuro: Orientation: appropriate for stated age, Mentation: is normal, Memory: is normal. 14:54 Psych: Behavior/mood is pleasant, cooperative. Vital Signs: 13:05 BP 138 / 87; Pulse 88; Resp 20; Temp 97.83; Pulse Ox 96% on R/A; Weight 70.76 kg; hb Height 5 ft. 7 in. ; Pain 8/10; 16:13 BP 162 / 91; Pulse 59; Resp 18; Pulse Ox 92% on R/A; ld1 17:24 BP 153 / 98; Pulse 61; Resp 18; Pulse Ox 100% on R/A; ld1 18:50 BP 151 / 93; Pulse 64; Resp 23; Pulse Ox 91% on R/A; ld1 19:59 BP 152 / 97; Pulse 82; Resp 23; Pulse Ox 92% on R/A; ld1 21:15 BP 163 / 98; Pulse 70; Resp 18; Pulse Ox 94% on R/A; sg5 13:05 Body Mass Index 24.43 (70.76 kg, 170.18 cm) hb 13:05 Pain Scale: Adult hb MDM: 14:54 Patient medically screened. [facility] 19:35 Differential diagnosis: CHF exacerbation, Chronic Obstructive Pulmonary Disease. Data leo reviewed: vital signs, nurses notes. Counseling: I had a detailed discussion with the patient and/or guardian regarding: the historical points, exam findings, and any diagnostic results supporting the discharge/admit diagnosis, radiology results, the need for further work-up and treatment in the hospital. 09/18 15:13 Order name: Basic Metabolic Panel; Complete Time: 18:11 [facility] 09/18 15:13 Order name: CBC with Diff [facility] 09/18 15:13 Order name: LFT's; Complete Time: 18:11 [facility] 09/18 15:13 Order name: Magnesium; Complete Time: 18:11 [facility] 09/18 15:13 Order name: NT PRO-BNP; Complete Time: 18:11 [facility] 09/18 15:13 Order name: PT-INR; Complete Time: 17:51 [facility] 09/18 15:13 Order name: Troponin HS; Complete Time: 18:11 [facility] 09/18 15:13 Order name: Urinalysis w/ reflexes; Complete Time: 16:25 [facility] 09/18 20:42 Order name: CBC Smear Scan [facility] 09/18 15:13 Order name: XRAY Chest (1 view); Complete Time: 16:39 [facility] 09/18 18:15 Order name: CT Chest For PE Angio; Complete Time: 19:32 [facility] 09/18 18:16 Order name: CT Abd/Pelvis - IV Contrast Only; Complete Time: 19:43 [facility] 09/18 15:13 Order name: EKG; Complete Time: 15:14 [facility] 09/18 15:13 Order name: Cardiac monitoring; Complete Time: 15:29 [facility] 09/18 15:13 Order name: EKG - Nurse/Tech; Complete Time: 15:29 [facility] 09/18 15:13 Order name: IV Saline Lock; Complete Time: 17:14 [facility] 09/18 15:13 Order name: Labs collected and sent; Complete Time: 17:14 [facility] 09/18 15:13 Order name: O2 Per Protocol; Complete Time: 15:20 [facility] 09/18 15:13 Order name: O2 Sat Monitoring; Complete Time: 15:20 [facility] Administered Medications: 19:51 Drug: Furosemide IVP 20 mg Route: IVP; Site: right forearm; ld1 21:09 Drug: Aspirin PO Chewable Tablet 324 mg Route: PO; sg5 21:09 Drug: Furosemide IVP 40 mg Route: IVP; Site: right forearm; sg5 Disposition Summary: 09/18/22 19:36 Hospitalization Ordered Hospitalization Status: Observation [facility] Location: Telemetry/MedSurg (observation) [facility] Condition: Stable [facility] Problem: new jmm Symptoms: are unchanged [facility] Bed/Room Type: Standard [facility] Provider: Nacho Franco(09/18/22 19:43) la1 Room Assignment: [facility](09/18/22 20:09) Diagnosis - Acute on chronic combined systolic (congestive) and diastolic (congestive) heart [facility] failure Forms: - Medication Reconciliation Form jmm - SBAR form [facility] Signatures: Dispatcher [employer] EDWalker Galvan PA PA [facility] Dominic Felder, DRYER OPERATOR-C DRYER OPERATOR-Cla1 Minda Roland, RN RN cg Luisa Whitney RN RAMIRO [place] Brunner RN RN ld1 Nayeli Isabel RN RN sg5 Corrections: (The following items were deleted from the chart) 19:43 19:36 Jurgen Tellez [facility] la1 20:05 19:36 [facility] cg 20:09 20:[address] [place] [address]
--- NOTE | 2022-09-18 19:39 | RAD REPORT ---
EXAM DESCRIPTION: CT - Abdomen Pelvis W Contrast - 09/18/2022 7:20 pm CLINICAL HISTORY: Abdominal pain COMPARISON: none. TECHNIQUE: Computed axial tomography of the abdomen pelvis was obtained. 100 cc Isovue-300 was admin istered intravenously. Oral contrast was not requested which limits evaluation of bowel and appendix All CT scans are performed using dose optimization technique as appropriate and may include automated exposure control or mA/KV adjustment according to patient size. FINDINGS: Hepatic cyst. Spleen, pancreas, adrenals and kidneys unremarkable No evidence of diverticulitis. No adnexal mass. Gallstones. Gallbladder wall thickening Small amount of ascites. Diffuse edema within the subcutaneous tissues. Mild anterior subluxation L4 on L5 IMPRESSION: Cholelithiasis Gallbladder wall thickening probably secondary to hypoalbuminemia. Cholecystitis can also have this a ppearance and should be correlated clinically
[2022-09-18] MEDS ORDERED: FUROSEMIDE 20 MG/ 2ML VIAL ONE (19:57)
[2022-09-18] MEDS ORDERED: FUROSEMIDE 40 MG/4 ML VIAL ONE (20:07)
--- NOTE | 2022-09-18 20:37 | P.HP ---
Certification for Inpatient Patient admitted to: Inpatient With expected LOS: >2 Midnights Patient will require the following post-hospital care: None Practitioner: I am a practitioner with admitting privileges, knowledge of patient current condition, hospital course, and medical plan of care. Services: Services provided to patient in accordance with Admission requirements found in Title 42 Section 412.3 of the Code of Federal Regulations <Dominic Felder Caroline Morales - Last Filed: 09/18/22 20:33> Patient History Date of Service: 09/18/22 Reason for admission: NSTEMI, CHF History of Present Illness: 62-year-old female with history of congestive heart failure, seizure disorder, hypertension, CAD with previous stents presents to the emergency department with chief complaint of lower extremity edema and shortness of breath. She reports that she was admitted at [facility] approximately 2 weeks ago where she stayed for 3 days, at that time they increased her Lasix from 40 mg twice daily to 80 mg twice daily. She is unsure of her other home medications. She was evaluated here in the emergency department her labs are significant for BNP 9249 high-sensitivity troponin 262.0 creatinine 1.09 GFR 57 hemoglobin 10.4 hematocrit 35.6 chest x-ray shows mild CHF, patient with 2+ pitting edema bilateral lower extremities. ED wishes to admit for NSTEMI, CHF exacerbation. - Past Medical/Surgical History -: CHFunknown EF -: Seizure disorder -: Hypertension -: Appendectomy Psychosocial/ Personal History: Patient lives at home with her sisters - Family History Family History: Reviewed- Non-Contributory - Social History Smoking Status: Never smoker Alcohol use: No CD- Drugs: No Caffeine use: Yes Place of Residence: Home <Dominic Felder - Last Filed: 09/18/22 20:33> Date of Service: 09/19/22 <Nacho Franco - Last Filed: 09/19/22 08:45> Allergies No Known Allergies Allergy (Verified 09/18/22 20:31) Review of Systems 10-point ROS is otherwise unremarkable Respiratory: Shortness of Breath Cardiovascular: Edema <Dominic Felder - Last Filed: 09/18/22 20:33> Physical Examination - Physical Exam General: Alert, In no apparent distress, Oriented x3 HEENT: Atraumatic, PERRLA, Mucous membr. moist/pink, EOMI, Sclerae nonicteric Neck: Supple, 2+ carotid pulse no bruit, No LAD, Without JVD or thyroid abnormality Respiratory: Clear to auscultation bilaterally, Normal air movement Cardiovascular: Regular rate/rhythm, Normal S1 S2, Edema (2+ pitting edema bilateral lower extremities) Capillary refill: <2 Seconds Gastrointestinal: Normal bowel sounds, No tenderness Musculoskeletal: No tenderness Integumentary: No rashes Neurological: Normal speech, Normal strength at 5/5 x4 extr, Normal tone, Normal affect - Studies Laboratory Data (last 24 hrs) 09/18/22 17:13: PT 18.4 H, INR 1.67 09/18/22 17:13: WBC 5.80, Hgb 10.4 L, Hct 35.6 L, Plt Count 260 09/18/22 17:13: Sodium 141, Potassium 3.6, BUN 20 H, Creatinine 1.09 H, Glucose 99, Magnesium 1.7, Total Bilirubin 0.8, AST 17, ALT 19, Alkaline Phosphatase 127 H <Dominic Felder - Last Filed: 09/18/22 20:33> - Studies Laboratory Data (last 24 hrs) 09/18/22 17:13: PT 18.4 H, INR 1.67 09/18/22 17:13: WBC 5.80, Hgb 10.4 L, Hct 35.6 L, Plt Count 260 09/18/22 17:13: Sodium 141, Potassium 3.6, BUN 20 H, Creatinine 1.09 H, Glucose 99, Magnesium 1.7, Total Bilirubin 0.8, AST 17, ALT 19, Alkaline Phosphatase 127 H <Nacho Franco - Last Filed: 09/19/22 08:45> Assessment and Plan - Plan Assessment: NSTEMI Acute on chronic CHFunknown EF Hypertension Seizure disorder Plan: NSTEMI Acute on chronic CHFunknown EF Suspect demand ischemia, patient recently Lasix increased from 40 mg twice daily to 80 mg twice daily, continue with IV Lasix 40 mg 3 times daily, cardiology consult. We will attempt to obtain records from recent hospitalization at [facility] including echocardiogram as we do not know her ejection fraction. She denies any chest pain she does have significant lower extremity edema. Appreciate further input from cardiology. We will also try troponins. Hypertension Continue home medication once verified. Seizure disorder Continue Keppra 5 mg twice daily. DVT PPX: Lovenox Code status: Full Discharge Plan: Home Plan to discharge in: 72 Hours - Advance Directives Does patient have a Living Will: No Does patient have a Durable POA for Healthcare: No - Code Status/Comfort Care Code Status Assessed: Yes (Full code) Critical Care: No Time Spent Managing Pts Care (In Minutes): 55 <Dominic Felder - Last Filed: 09/18/22 20:33> Physician Review Additional Text: Ms. Dean was initially to be admitted to my service. However, she has been transferred to Dr. Tatum's service this morning. I have not personally seen or evaluated Ms. Dean. I have reviewed the H&P by Dominic Felder NP. Please refer to Dr. Tatum's notes for further details regarding her care. Nacho Franco M.D. <Nacho Franco - Last Filed: 09/19/22 08:45>
[2022-09-18 20:41] LABS: Platelet Estimate ADEQ
[2022-09-18 20:42] LABS: Blood Morphology Comment NOTED (NOT SEEN); Poikilocytosis 1+
[2022-09-18 20:43] LABS: White Blood Cell Scan OK (OK)
[2022-09-18] MEDS ORDERED: ASPIRIN 81 MG CHEWABLE TABLET ONE (21:06)
[2022-09-18 22:00] VITALS: BMI 25.2
[2022-09-18] MEDS ORDERED: ONDANSETRON 4 MG/2 ML VIAL IV PRN (22:14)
[2022-09-18 22:47] VITALS: O2SAT 94
[2022-09-18] MEDS: levETIRAcetam 500 MG TAB PO SCH (22:53)
[2022-09-19] MEDS: FUROSEMIDE 40 MG/4 ML VIAL IV SCH ×3 (00:45→17:19)
[2022-09-19 07:33] LABS: Absolute Lymphocytes (CBC) 1.2 K/uL (0.7-4.9); Hematocrit 30.3 % (36.0-45.0); Lymphocytes % 21.8 % (15.3-44.8); MCV 79.9 fL (80-100); MPV 7.5 fL (7.6-11.3); RBC Red Blood Cell Count 3.79 M/uL (3.86-4.86)
[2022-09-19 07:54] LABS: Potassium 3.3 mEq/L (3.5-5.1)
[2022-09-19 07:56] LABS: Troponin High Sensitivity 267.4 pg/mL (<58.9)
[2022-09-19] MEDS ORDERED: ENOXAPARIN 40 MG/0.4 ML SQ SCH (09:00)
[2022-09-19] MEDS ORDERED: METOPROLOL TAR 50 MG TAB PO SCH (09:00)
[2022-09-19] MEDS ORDERED: DILTIAZEM HCL 120 MG SR CAP PO SCH (09:00)
[2022-09-19] MEDS: APIXABAN 5 MG TABLET PO SCH ×2 (10:23→21:34)
[2022-09-19] MEDS: levETIRAcetam 500 MG TAB PO SCH ×2 (10:23→21:34)
--- NOTE | 2022-09-19 11:49 | P.PN ---
Subjective Date of Service: 09/19/22 Chief Complaint: NSTEMI, CHF Subjective: Improving Patient admitted for chf exacerbation. She normally see's Dr. Abdi. She denies missing her medications. The patient has a history of crack/cocaine use. Which would explain her early onset heart disease. She started with an MD in 2013 Review of Systems 10-point ROS is otherwise unremarkable Cardiovascular: Edema Physical Examination - Vital Signs Temperature: 98.9 F Blood Pressure: 117/69 Pulse: 63 Respirations: 16 Pulse Ox (%): 96 - Physical Exam General: Alert, In no apparent distress HEENT: Atraumatic, PERRLA, EOMI Neck: Supple, JVD not distended Respiratory: Clear to auscultation bilaterally, Normal air movement Cardiovascular: Regular rate/rhythm, Normal S1 S2 Gastrointestinal: Normal bowel sounds, No tenderness Musculoskeletal: No tenderness Integumentary: No rashes Neurological: Normal speech, Normal tone, Normal affect Lymphatics: No axilla or inguinal lymphadenopathy - Studies Laboratory Data (last 24 hrs) 09/18/22 17:13: PT 18.4 H, INR 1.67 09/18/22 17:13: WBC 5.80, Hgb 10.4 L, Hct 35.6 L, Plt Count 260 09/18/22 17:13: Sodium 141, Potassium 3.6, BUN 20 H, Creatinine 1.09 H, Glucose 99, Magnesium 1.7, Total Bilirubin 0.8, AST 17, ALT 19, Alkaline Phosphatase 127 H Assessment And Plan - Current Problems (Diagnosis) (1) CHF exacerbation Current Visit: Yes Status: Acute Plan: will continue diuresis. Will start her on entresto. Willl see if health care social worker can get her the info for the assistance program. Will need to get her records from [facility] or Dr. Abdi. Decrease the furosemide to q12 hrs Qualifiers: Heart failure type: unspecified Qualified Code(s): I50.9 - Heart failure, unspecified (2) HTN (hypertension) Current Visit: Yes Status: Acute Plan: continue cardizem and entresto. Will adjust as needed Qualifiers: Hypertension type: primary hypertension Qualified Code(s): I10 - Essential (primary) hypertension (3) Crack cocaine use Current Visit: Yes Status: Acute Plan: Check a uds. Will start her on buproprion for reshipping clerk treatment of addiction. Will need to be careful about the beta meg usage. She states she has not used in over a month. Would explain her heart disease. Will need health care social worker to give her the forms for outpatient assistance Discharge Plan: Home Plan to discharge in: 24 Hours - Code Status/Comfort Care Code Status Assessed: No Code Status: Full Code Physician Review: Patient Assessed, Agree with Above Assessment and Plan Critical Care: No Time Spent Managing PTS Care (In Minutes): 25
[2022-09-19] MEDS: SACUBITRIL/VALSARTAN 24/26 MG TAB PO SCH (21:34)
[2022-09-19] MEDS ORDERED: IBUPROFEN 400 MG TAB PO PRN (21:40)
[2022-09-20 06:55] LABS: Absolute Lymphocytes (CBC) 1.2 K/uL (0.7-4.9); Hematocrit 30.9 % (36.0-45.0); Lymphocytes % 18.2 % (15.3-44.8); MCV 80.6 fL (80-100); MPV 7.8 fL (7.6-11.3); RBC Red Blood Cell Count 3.84 M/uL (3.86-4.86)
[2022-09-20 08:05] LABS: Potassium 3.1 mEq/L (3.5-5.1)
[2022-09-20] MEDS ORDERED: REGADENOSON 0.4 MG/5 ML SYR IV ONE (08:08)
[2022-09-20] MEDS ORDERED: BUPROPION HCL XL 150 MG TAB PO SCH (09:00)
[2022-09-20] MEDS ORDERED: DILTIAZEM HCL 120 MG SR CAP PO SCH (09:00)
--- NOTE | 2022-09-20 09:14 | RAD REPORT ---
EXAM DESCRIPTION: NM - Rest Stress Cardiac Imaging - 09/20/2022 9:06 am CLINICAL HISTORY: elevated troponin Chest pain. COMPARISON: No comparisons TECHNIQUE: The patient was administered approximately 10mCi of Tc 99m Sestamibi prior to resting SPE CT imaging of the heart. The patient was then administered approximately 30 mCi of Tc 99m Sestamibi f ollowing exercise or pharmacologic stress. Multiplanar SPECT images were reviewed. FINDINGS: No stress induced ischemic defect is seen to suggest stress induced ischemia. Diminished r adiopharmaceutical accumulation is seen involving the lateral wall with rest and stress likely relate d to previous infarction. The end diastolic volume is 95 ml, the end systolic volume is 48 ml, and the ejection fraction is 49 %. IMPRESSION: No stress induced ischemia. Diminished radiopharmaceutical accumulation involving the lateral wall with rest and stress, likely s car tissue from prior infarction.
[2022-09-20] MEDS: SACUBITRIL/VALSARTAN 24/26 MG TAB PO SCH (12:04)
[2022-09-20] MEDS: APIXABAN 5 MG TABLET PO SCH (12:05)
[2022-09-20] MEDS: levETIRAcetam 500 MG TAB PO SCH (12:05)
[2022-09-20] MEDS: FUROSEMIDE 40 MG/4 ML VIAL IV SCH (12:06)
[2022-09-20 12:28] VITALS: TEMP 98.2
--- NOTE | 2022-09-20 14:38 | P.DS ---
Admission Date: 09/18/22 Discharge Date: 09/20/22 Disposition: ROUTINE DISCHARGE Discharge Condition: GOOD Reason for Admission: NSTEMI, CHF - Problems (1) CHF exacerbation Current Visit: Yes Status: Acute Qualifiers: Heart failure type: unspecified Qualified Code(s): I50.9 - Heart failure, unspecified (2) HTN (hypertension) Current Visit: Yes Status: Acute Qualifiers: Hypertension type: primary hypertension Qualified Code(s): I10 - Essential (primary) hypertension (3) Crack cocaine use Current Visit: Yes Status: Acute Brief History of Present Illness: Patient admitted by the hospitalist for chf exacerbation. Hospital Course: patient was admitted. Started on entresto. Seen by Dr. Echols. She has a negative stress test. Will discharge her home. Have the patient follow up with Dr. Abdi and Dr. Larsen. Thank you for allowing me to take part in her care. Vital Signs/Physical Exam: Temp Pulse Resp BP Pulse Ox 98.2 F 76 17 137/83 94 09/20/22 12:00 09/20/22 12:00 09/20/22 12:00 09/20/22 12:00 09/20/22 12:00 General: Alert, In no apparent distress HEENT: Atraumatic, PERRLA, EOMI Neck: Supple, JVD not distended Respiratory: Clear to auscultation bilaterally, Normal air movement Cardiovascular: Regular rate/rhythm, Normal S1 S2 Gastrointestinal: Normal bowel sounds, No tenderness Musculoskeletal: No tenderness Integumentary: No rashes Neurological: Normal speech, Normal tone, Normal affect Lymphatics: No axilla or inguinal lymphadenopathy Laboratory Data at Discharge: WBC 6.60 thou/uL (4.3-10.9) 09/20/22 06:00 Hgb 9.5 g/dL (12.0-15.0) L 09/20/22 06:00 Hct 30.9 % (36.0-45.0) L 09/20/22 06:00 Plt Count 232 thou/uL (152-406) 09/20/22 06:00 PT 18.4 SECONDS (9.5-12.5) H 09/18/22 17:13 INR 1.67 09/18/22 17:13 Sodium 140 mEq/L (136-145) 09/20/22 07:42 Potassium 3.1 mEq/L (3.5-5.1) L 09/20/22 07:42 BUN 16 mg/dL (7-18) 09/20/22 07:42 Creatinine 0.96 mg/dL (0.55-1.02) 09/20/22 07:42 Glucose 112 mg/dL (74-106) H 09/20/22 07:42 Magnesium 1.7 mg/dL (1.6-2.4) 09/18/22 17:13 Total Bilirubin 0.8 mg/dL (0.2-1.0) 09/18/22 17:13 AST 17 U/L (15-37) 09/18/22 17:13 ALT 19 U/L (13-56) 09/18/22 17:13 Alkaline Phosphatase 127 U/L (45-117) H 09/18/22 17:13 Triglycerides 49 mg/dL (<150) 09/19/22 07:06 Cholesterol 72 mg/dL (<200) 09/19/22 07:06 HDL Cholesterol 35 mg/dL (40-60) L 09/19/22 07:06 Cholesterol/HDL Ratio 2.06 09/19/22 07:06 Home Medications: Sacubitril/Valsartan [Entresto 24 mg-26 mg Tablet] 1 tab PO BID 30 Days #60 tab 09/20/22 New Medications: Sacubitril/Valsartan [Entresto 24 mg-26 mg Tablet] 1 tab PO BID 30 Days #60 tab Followup: Jose Larsen MD [ACTIVE - CAN ADMIT] - 1-2 Weeks BLAINE ABDI [UNKNOWN] - 1 Week Time spent managing pt's care (in minutes): 30
[2022-09-20 17:13] VITALS: BP 143/74
--- NOTE | 2022-09-21 06:57 | ECHO ---
HEIGHT: 5 ft 7 in WEIGHT: 156 lb 0 oz DATE OF STUDY: 09/20/[address]: Dominic Felder NP 2-DIMENSIONAL: YES M.MODE: YES DOPPLER: YES COLOR FLOW: YES TDS: PORTABLE: YES DEFINITY: BUBBLE STUDY: DIAGNOSIS: CONGESTIVE HEART FAILURE, NON ST ELEVATION MYOCARDIAL INFARCTION CARDIAC HISTORY: CATHERIZATION: NO SURGERY: NO PROSTHETIC VALVE: NO PACEMAKER: NO MEASUREMENTS (cm) DIASTOLIC (NORMALS) SYSTOLIC (NORMALS) IVSd 1.4 (0.6-1.2) LA Diam 5.8 (1.9-4.0) LVEF 55% LVIDd 4.0 (3.5-5.7) LVIDs 3.1 (2.0-3.5) %FS 24% LVPWd 1.4 (0.6-1.2) Ao Diam 2.2 (2.0-3.7) 2 DIMENSIONAL ASSESSMENT: RIGHT ATRIUM: ENLARGED LEFT ATRIUM: SEVERELY ENLARGED RIGHT VENTRICLE: NORMAL LEFT VENTRICLE: NORMAL TRICUSPID VALVE: MILD TRICUSPID REGURGITATION MITRAL VALVE: MILD MITRAL REGURGITATION PULMONIC VALVE: MILD PULMONIC INSUFFICIENCY AORTIC VALVE: NORMAL PERICARDIAL EFFUSION: NONE AORTIC ROOT: NORMAL LEFT VENTRICULAR WALL MOTION: NORMAL DOPPLER/COLOR FLOW: SEE BELOW COMMENTS: 1. POOR WINDOWS 2. LEFT VENTRICULAR EJECTION FRACTION IS NORMAL 55-60% 3. SEVERE BIATIRAL ENLARGEMENT 4. SEVERE DIASTOLIC DYSFUNCTION 5. MILD MITRAL REGURGITATION 6. MILD TRICUSPID REGURGITATION/ AORTIC INSUFFICIENCY TECHNOLOGIST: BECKI KAPOOR
--- NOTE | 2022-09-21 07:19 | TREADPHA ---
DX: ELEVATED TROPONIN Date of Study: 09/20/2022 Ht: 5' 7 " Wt: 156 lb 0 oz Consulting Physician: FAROOQ MEDICATIONS: ELIQUIS, WELLBUTRIN XL, CARDIZEM, LASIX, MOTRIN, KEPPRA, ZOFRAN HISTORY: TWO CARDIAC STENTS, HYPERTENSION, CONGESTIVE HEART FAILURE, HISTORY OF SEIZURE PHYSICIAL EXAMINATION: RESTING B.P.: 129/75 RESTING H.R.: 59 RESTING EKG: SINUS WITH DIFFUSE ST DEPRESSION PROTOCOL: PHARMACOLOGIC EXERCISE TIME: 3:30 B.P. AT PEAK STRESS: 118/69 IMPRESSION: PREPROCEDURE PREMATURE ATRIAL COMPLEXES NOTED ON ELECTROCARDIOGRAM RHYTHM. LEXISC[place] STRESS TEST PERFORMED ORDERED. CARDIOLITE INJECTED, SEE NUCLEAR MEDICINE NOTES. PREMATURE ATRIAL COMPLEXS NOTED DURING PROCEDURE. PATIENT STATES CHEST PRESSURE DURING STRESS, PRESSURE ALLEVIATED POST. NO SHORTNESS OF BREATH OR CHEST PAIN PER PATIENT. ELECTROCARDIOGRAM IS NOT DIAGNOSTIC DUE TO ABNORMAL BASELINE ELECTROCARDIOGRAM.
--- NOTE | 2022-09-21 15:02 | EKG ---
Test Date: 2022-09-18 Test Time: 15:26:21 Ccu Nurse: Bianka FLEMING MEASUREMENT RESULTS: Intervals: Rate: 65 TX: 192 QRSD: 98 QT: 422 QTc: 438 [place]: P: 15 TX: 192 QRS: 83 T: 246 INTERPRETIVE STATEMENTS: Normal sinus rhythm Left ventricular hypertrophy with repolarization abnormality Abnormal ECG No previous ECG available for comparison Electronically Signed On 09-21-22 14:57:39 CDT by Liborio Echols
--- NOTE | 2022-09-22 18:45 | CON ---
Date of Consultation: 09/20/2022 Reason For Consultation: Chest pain. History Of Present Illness: A 62-year-old female with history of heart failure, hypertension, tapia ry artery disease with previous stents, presented with shortness of breath and lower extremity edema as well as some chest discomfort on and off. Denies having any diaphoresis, nausea, vomiting, or exe rtional chest pain. Past Medical History: As outlined above in the HPI. Medications: Refer to reconciliation sheet for detailed list. Allergies: NO KNOWN DRUG ALLERGIES. Family History: No premature coronary artery disease or cancer. Social History: She does not smoke or drink. Does not use any drugs. Review of Systems: All systems reviewed and they were negative except what mentioned in HPI. Physical Examination: Vital Signs: Show temperature is 98.4, pulse is 84, breathing at 17, blood pressure 143/74, saturati ng 96% on room air. General: Pleasant middle-aged female, in no apparent distress. Head and Neck: Pupils are equal, reactive to light. Intact eye movements. No JVD. No cervical lym phadenopathy. Neck is supple. Thyroid is not enlarged. Lungs: Clear to auscultation bilaterally. No rhonchi, wheezing, or crackles. No accessory muscle u se. Heart: Regular rate and rhythm. No extra sounds. Abdomen: Soft, nontender. Bowel sounds positive. No organomegaly. No masses or hernia. No rigidi ty or rebound. Extremities: No clubbing or cyanosis. Trace edema. Skin: No rash. Neurologic: Alert, awake, oriented x3. No acute focal deficits appreciated. Investigations: BUN is 16, creatinine 0.96. Troponin peaked at 314. Assessment And Recommendations: 1.Acute on chronic systolic heart failure exacerbation. The patient is being diuresed very well. A t this point, she appears to be euvolemic. She can be switched to oral Lasix and can be released. 2.Elevated troponin with known history of coronary artery disease. Obtained a stress test on her an d it did not show any ischemia. This is likely demand ischemia and no further management is needed. Await on the results of echo for further recommendations. /BRENT Voice ID: [id number] Report ID: [id number]
== END 2022-09-20 17:36 | disposition home or self-care (01) | DRG 291 ==
LOC: ER 12:47 → ERHOLD 19:52 → 4TH 20:49
PROVIDERS: ADMIT Internal Medicine; ATTEND Internal Medicine
DX: I11.0 Hypertensive heart disease with heart failure (principal); I50.23 Acute on chronic systolic (congestive) heart failure; I24.8 Other forms of acute ischemic heart disease; G40.909 Epilepsy, unspecified, not intractable, without status epilepticus; I25.10 Atherosclerotic heart disease of native coronary artery without angina pectoris; I25.2 Old myocardial infarction; Z95.5 Presence of coronary angioplasty implant and graft; Z90.49 Acquired absence of other specified parts of digestive tract; Z79.899 Other long term (current) drug therapy
CPT/HCPCS: 36415; 71045; 71275; 74177; 78452; 80048; 80061; 80076; 81001; 83735; 83880; 84484; 85025; 85610; 93005; 93017; 93306; 96374; 99285; A9500; J1940; J2785; Q9967